=== PATIENT | male | born 1975 ===

== ENCOUNTER → 2019-03-25 | Outpatient (CLI) | payer OTHER ==
[~2019-03-25] MED LIST: ACET325T9 PO; FAMO-63 PO; FEXO180T81 PO; MELA3TAB56 PO; OMEG1CAP50 PO; TEST200V3 IM
--- NOTE | 2019-03-25 11:07 | PAIN ---
DATE OF SERVICE: 03/25/2019 INITIAL CONSULTATION FOR PAIN CLINIC CHIEF COMPLAINT: Bilateral testicle pain. HISTORY OF PRESENT ILLNESS: This is a 43-year-old male who presents with history of pain in the bilateral testicles for about 10 years status post vasectomy, which was performed about 10 years ago and about 6 months after the procedure, the patient reported he had significant pain in the testicles bilaterally, right essentially equal to left. The patient reports it is worse with walking, standing, changing positions, elevating the testicles and sitting is painful, it awakens him from sleep occasionally, but generally not most nights. The patient reports it does not affect his bowel or bladder control or ability to walk, but had some chronic pain. He has been seen by urologist, recommending conservative therapies, although did give him a surgical option for orchiectomy bilaterally. The patient is not interested in this at this time or reversal of vasectomy also not interested in that at this time. The patient reports the pain is constant, sharp, stabbing, intermittent in intensity, but always present. Reports his disability rating from 0-10, 10 being the worst, is a 3 with family home responsibilities, 8 with recreation, 5 with social activity, 8 with occupation and sexual behavior, 1 with self-care, 6 with life support activities. The patient has had no other therapies or treatments at this time. Again, was seen by Urology, recommending surgical options which he is not interested in at this time. PAST MEDICAL HISTORY: Significant for arthritis, hearing loss, gastroesophageal reflux. PREVIOUS SURGERY: Include vasectomy and bilateral knee scopes and stapedectomy in the right ear. CURRENT MEDICATIONS: Include meloxicam, Zantac, clotrimazole, hydrocortisone cream, eye drops. ALLERGIES: The patient has no known drug allergies. FAMILY HISTORY: Significant for cancers and heart disease. SOCIAL HISTORY: The patient does not drink alcohol, does not smoke. Denies any illegal, illicit or recreational drugs. He is single and is currently a in custody. 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 REVIEW OF SYSTEMS: The patient's review of systems is positive for those items mentioned in history of present illness. All systems reviewed and otherwise negative. It is complete, full and well documented on the patient's chart. PHYSICAL EXAMINATION: VITAL SIGNS: The patient's blood pressure is 111/67, pulse 88, respirations 18, temperature 98.1 degrees Fahrenheit, height is 72 inches, weight is 222 pounds. GENERAL: The patient is awake, alert, oriented, appropriate, very pleasant demeanor. HEENT: Shows normocephalic, atraumatic. Extraocular movements are intact and symmetrical. Oral cavity shows mucous membranes moist and pink. Dentition is intact. NECK: Shows anterior throat supple without palpable lymphadenopathy noted. Swallow reflex is symmetrical. CHEST: Shows normal on inspection. Breath sounds clear to auscultation bilaterally. HEART: Shows S1, S2 clear. No murmurs auscultated. ABDOMEN: Soft, nontender, nondistended. No palpable organomegaly is noted. No rebound or guarding demonstrated. BACK: Shows spine grossly in the midline. Normal-appearing thoracic kyphosis and cervical lordotic curvature and lumbar lordotic curvature. The patient's genitals shows normal in appearance with palpation shows significant tenderness with palpation on the superior aspect of the testicles bilaterally as well as in the spermatic cord, it was very tender bilaterally, right and left equal. No obvious masses are palpated. No abnormality of the scrotum of the skin covering or discoloration bilaterally as well. The patient's pain is fairly well localized with compression of the spermatic cord without radiation into the abdomen or groin to a significant extent. EXTREMITIES: The patient's extremities show lower extremity deep tendon reflexes 2+ in the patellar and tendo calcaneus tendons. Motor exam is strong with 5/5 dorsiflexion, extension, quadriceps and hamstring flexion equal bilaterally. SKIN: Shows warm and dry, good turgor. No edema. No sores, rashes or bruising throughout. IMPRESSION: 1. This is a 43-year-old male with about 10-year history of bilateral testicular pain status post vasectomy and chronic epididymitis and orchitis. 2. Arthritis. 3. Hearing loss. PLAN: Options were discussed with the patient including continued conservative managements and interventional techniques. He would like to pursue interventional techniques. We discussed a spermatic cord injection for testicular nerve block. The patient would like to proceed with this. We will wait for preauthorization with his insurance provider. The patient returned for bilateral spermatic cord injection ____ testicular nerve block approval. Also recommend starting the patient on gabapentin 100 mg 3 times daily to titrate up as tolerated and as if the symptoms improve. KERI MOROTN MD DR: KRISTA/neda JOB#: [id number] / [id number]
== END | disposition home or self-care (01) ==
LOC: PNCL 07:47 → EEVIPCON 08:00
PROVIDERS: ATTEND Anesthesiology
DX: N50.812 Left testicular pain (principal); N50.811 Right testicular pain; M19.90 Unspecified osteoarthritis, unspecified site; H91.90 Unspecified hearing loss, unspecified ear; K21.9 Gastro-esophageal reflux disease without esophagitis; G89.29 Other chronic pain; Z98.52 Vasectomy status; Z79.899 Other long term (current) drug therapy
CPT/HCPCS: G0463

== ENCOUNTER → 2019-04-19 | Outpatient (CLI) | payer OTHER ==
[~2019-04-19] MED LIST changes: +BUPIVACAINE MPF 0.25% 10 ML VIAL. ONE; +methylPREDNISolone ACETATE 40 MG/ML VIAL. ONE
--- NOTE | 2019-04-19 10:58 | PAIN ---
DATE OF SERVICE: 04/19/2019 PROGRESS NOTE FOR PAIN CLINIC DIAGNOSES: Bilateral orchitis with orchiodynia, with epididymitis bilaterally. HISTORY OF PRESENT ILLNESS: The patient is a 43-year-old male who returns for followup status post initial evaluation and preauthorization for bilateral spermatic cord block. The patient returns now with approval, would like to proceed, still has significant pain in bilateral testicular regions, rated as 8 on a scale of 10 at its worst over the past week, 6 on average, 4 at its least and is a 6 today. The patient reports it is sharp and constant at times worse with activity, walking, standing, also sitting. No significant change in pain. The patient did report that his gabapentin has been increased to 200 mg three times a day, it is causing some sedation, but seems to be about the same as far as pain goes. No significant improvement. The patient reports it still awakens him from sleep every 4 to 5 hours. No new motor or sensory deficits or other changes. PHYSICAL EXAMINATION: VITAL SIGNS: The patient's blood pressure 144/99, pulse 96, respirations 18, temperature 97.7 degrees Fahrenheit, height is 72 inches, weight is 232 pounds. GENERAL: The patient is awake, alert, oriented, appropriate, very pleasant demeanor. Again, the patient is in custody, guards present. HEENT: Shows normocephalic, atraumatic. Extraocular movements are intact and symmetrical. Oral cavity shows mucous membranes moist and pink. Dentition is intact. NECK: Shows anterior throat supple. CHEST: Shows normal on inspection. Breath sounds clear bilaterally. HEART: Shows S1, S2 clear. ABDOMEN: Soft, nontender, nondistended. BACK: The patient's genitals shows some smaller than normal testicular girth, but with moderate tenderness with palpation on each testicular spermatic cord as well as the testicle itself, but without specific masses or other abnormalities. PLAN: Options were discussed with the patient. The patient's old chart was reviewed as his current medication regimen updated. Current review of systems updated today as well. We will proceed with bilateral spermatic cord block today with risks discussed including, but not limited to bleeding, infection, possibility of intravascular injection sequelae, spread of local anesthetic and numbness, side effects of steroid medication and poor results regarding pain control. The patient understands and wished to proceed. The patient will return to the clinic in approximately 2 weeks for followup. He was counseled on return appointment, activity level and side effects to be aware of. I recommend reassessment in approximately 2 to 3 weeks with potential reinjection and reinforcement of today's spermatic cord block, also recommended increasing the patient's gabapentin as tolerated. DIAGNOSES: Bilateral orchitis with orchiodynia and epididymitis. PROCEDURE: Bilateral spermatic cord block under sterile prep and drape using local anesthetic. MEDICATION INJECTED: A total of 4 mL of 0.25% bupivacaine and 40 mg total of Depo-Medrol after negative aspiration at each injection site. The patient tolerated the procedure well, had no complications. KERI MORTON MD DR: KRISTA/neda JOB#: [id number] / [id number]
== END ==
LOC: PNCL 07:43 → EEVIPCON 08:00
PROVIDERS: ATTEND Anesthesiology
DX: N45.3 Epididymo-orchitis (principal)
CPT/HCPCS: 64425; J1030; J3490

== ENCOUNTER → 2019-12-08 | Outpatient (CLI) | payer OTHER ==
[~2019-12-08] MED LIST changes: -BUPIVACAINE MPF 0.25% 10 ML VIAL. ONE; +CETI10TA74 PO; +GABA300C18 PO; +MELA3TAB4 PO; -MELA3TAB56 PO; +TRAM-48 PO; -methylPREDNISolone ACETATE 40 MG/ML VIAL. ONE
--- NOTE | 2019-12-08 08:26 | PDOC ---
Progress Note - Pain Clinic Date of Service: DOS: DATE: 12/08/19 TIME: 08:20 Diagnosis: Dx: Bilateral epididymitis with Orchodynia History or Present Illness: HPI: 44-year-old male returns follow-up status post bilateral spermatic cord blocks last seen April 19, 2019. Patient reports very minimal decrease in pain only for about 45 minutes after the injection enough for the ride back to [place] and the pain was right back where it was with no improvement long-term. We did recommend starting gabapentin which she reports has actually been helpful in decreasing the pain by about 50% patient reports still pain in the bilateral testicular regions and spermatic cords as he had previously worse with walking standing changing positions better with resting or sitting comfortably still will awaken him from sleep at night occasionally but with the gabapentin has been much less frequently patient reports his pain is a 7 on a scale of 10 is worse over the past week 5 on average to its least is a 5 today patient ported sharp and stabbing on and off in intensity but again better with gabapentin but not with diagnostic nerve block. Patient reports some mild sedation with the gabapentin but otherwise is fairly well-tolerated. Physical Exam: VS: Blood pressure is 136/90 pulse 119 respirations 20 temperature 98.4 F weight is 238 pounds PE: PHYSICAL EXAMINATION: GENERAL: The patient is awake, alert, oriented, appropriate, very pleasant demeanor HEENT: Shows normocephalic, atraumatic. Extraocular movements are intact and symmetrical. Oral cavity: Mucous membranes moist and pink. NECK: Shows anterior throat supple without palpable lymphadenopathy noted. Swallow reflex symmetrical CHEST: Shows normal on inspection. Breath sounds are clear bilaterally. HEART: Shows S1, S2 clear. No murmurs auscultated. ABDOMEN: Soft, nontender, nondistended. No palpable organomegaly is noted. No rebound or guarding demonstrated. BACK: Shows spine grossly in the midline. Normal-appearing cervical lordotic curvature. There is slightly increased thoracic kyphosis, some minor flattening of the lumbar lordotic curvature. Lumbar paraspinous muscles show symmetrical on inspection, on palpation shows some moderate tenderness diffusely throughout the upper, middle and lower distribution of the paraspinous muscles bilaterally without specific trigger points, without radiation of pain. The patient has good rotational motion of the lumbar spine, both laterally as well as extension and flexion without significant difficulty. No tenderness over the spinous processes, sacrum or sacroiliac regions. Genitalia: Shows normal on inspection, with palpation shows some moderate tenderness in the spermatic cord bilaterally right and left since the equal without specific masses palpated without specific radiation. Testicles are bulbous without obvious masses on palpation as well bilaterally. . SKIN: Shows warm and dry, good turgor. No edema. No sores, rashes or bruising throughout. Procedure: Procedure: Options were discussed with the patient. Patient will chart reviews her current medication regimen updated current review of systems updated today as well. We will hold any further injections at this time outpatient specialists as he did not get any significant reduction pain even less than an hour from the initial injection. We discussed possible repeat of injection patient is not interested in that at this time we also talked about pulsed radiofrequency ablation again without good improvement in pain after diagnostic blocks I am unsure that this would be beneficial for the patient as well. We did discuss potential surgical evaluation for decompression of the spermatic cord from scar tissue which is most likely the cause of his chronic orchodynia. Patient would like to maintain his medication and wait on any further interventions at this time. We recommended increasing the gabapentin to 300 mg 3 times daily and or 200 mg 3 times daily and 3 mg at night as tolerated. We will follow-up at this time on as-needed basis. Medication Injected: Med Injected: None Condition at Discharge: Condition at Discharge: Condition at discharge is stable KERI MORTON MD Dec 08, 2019 08:26
== END | disposition home or self-care (01) ==
LOC: PNCL 07:47 → EEVIPCON 08:00
PROVIDERS: ATTEND Anesthesiology
DX: N45.1 Epididymitis (principal); N50.812 Left testicular pain; N50.811 Right testicular pain; K21.9 Gastro-esophageal reflux disease without esophagitis; Z79.899 Other long term (current) drug therapy
CPT/HCPCS: G0463

== ENCOUNTER 2020-07-01 14:38 | Inpatient (IN) | payer OTHER ==
[2020-07-01] VITALS (11 sets, daily range): BP systolic 110–144; BP diastolic 73–89
[~2020-07-01] VITALS: Ht 182.9 cm; Wt 105.0 kg
[2020-07-01] MEDS ORDERED: BISACODYL 10 MG SUPP.RECT. PR PRN (15:00)
[2020-07-01] MEDS ORDERED: ELECTROLYTE (NON-ICU) PROTOCOL. MC PRN (15:00)
[2020-07-01] MEDS ORDERED: CALCIUM CARBONATE 500 MG TAB.CHEW PO PRN (15:00)
[2020-07-01] MEDS ORDERED: ZOLPIDEM 5 MG TABLET. PO PRN (15:00)
[2020-07-01] MEDS ORDERED: HYDROcodone/APAP 5/325MG 1 TAB TABLET PO PRN (15:00)
[2020-07-01] MEDS ORDERED: LACTULOSE 20 GM/30 ML SOLUTION. PO PRN (15:00)
[2020-07-01] MEDS ORDERED: MAGNESIUM HYDROXIDE 2,400 MG/30 ML ORAL.SUSP. PO PRN (15:00)
[2020-07-01] MEDS ORDERED: IV RINGERS,LACTATED 1000ML 1,000 ML IV SCH ×2 (15:00→15:45)
[2020-07-01] MEDS ORDERED: fentaNYL PF VIAL 100 MCG/2 ML VIAL ONE ×2 (15:11→17:09)
[2020-07-01] MEDS ORDERED: PROPOFOL 10 MG/ML (20ML) VIAL. IV ONE ×2 (15:11→16:55)
[2020-07-01] MEDS ORDERED: ROCURONIUM 50 MG/5 ML VIAL. ONE (15:11)
[2020-07-01] MEDS ORDERED: SUCCINYLCHOLINE 200 MG/10 ML VIAL. ONE (15:11)
[2020-07-01] MEDS ORDERED: LIDOCAINE 2% PF 5 ML VIAL. ONE (15:11)
--- NOTE | 2020-07-01 15:17 | PDOC1 ---
History and Physical Date of Admission Date of Admission July 01, 2020 Identification/Chief Complaint Chief Complaint My abdomen hurts Problems: (1) Acute appendicitis Source Source: Chart review, Patient History of Present Illness History of Present Illness Patient is a 44-year-old gentleman with past medical history of GERD, dyslipidemia who was in his usual state of health until the morning prior to his admission when he woke up from his sleep with right lower quadrant abdominal pain. The patient takes Ultram on a regular basis and self medicated. He is currently incarcerated in the shelter. He was given symptomatic relief of his symptoms that also included nausea and vomiting. The patient has history of GERD his pain improved with the Ultram nevertheless it recurred later in the day and this morning he experienced fever and chills reason why he was transported to the local ER for further evaluation and treatment. The patient had a CT of the abdomen which revealed acute appendicitis and had an elevated white blood cell count he was tachycardic and having an acute febrile illness of 101 Fahrenheit. lead consultant was contacted and he requested transfer to our institution for definitive treatment. At the time my evaluation the patient is in acute distress due to the abdominal discomfort right lower quadrant no peritoneal signs patient is uncomfortable diaphoretic and tachycardic certainly in acute distress. Nontoxic looking and seems to be perfusing. As per report per ER physician lactic acid was 2.7 reason why we had requested an ICU bed initially. benefits consultant is in route at this point to take the patient to the OR for definitive definitive treatment. Laboratory data from outside facility has been reviewed and also imaging study results as well. He has received cephalosporin and Flagyl in the outside facility and will continue with Zosyn perioperatively. The patient describes the pain as a sharp sensation 10 out of 10 intensity with no radiation to the groin no radiation to the back no urinary symptoms were reported nausea and vomiting of gastric content was reported by the patient no other associated symptoms. The plan of care explained in detail and all of his concerns were addressed to the best of my abilities Past Medical History Cardiovascular: Hyperlipidemia GI: GERD Past Surgical History Past Surgical History: No pertinent history Family History Family History: No Significant Social History Smoke: No ALCOHOL: none Drugs: None Current Medications Current Medications Current Medications Medications (Trade) Dose Ordered Sig/Kaden Start Time Stop Time Status Last Admin Dose Admin Acetaminophen/ Hydrocodone Bitart (Lortab 5/325) 1 tab PRN Q4HRS PRN 07/01/20 15:00 Al Hydroxide/Mg Hydroxide (Mylanta Plus Xs) 30 ml PRN Q3HRS PRN 07/01/20 15:00 Bisacodyl (Dulcolax Supp) 10 mg PRN DAILY PRN 07/01/20 15:00 Calcium Carbonate/ Glycine (Tums) 500 mg PRN Q3HRS PRN 07/01/20 15:00 Docusate Sodium (Colace) 100 mg BID 07/01/20 21:00 Enoxaparin Sodium (Lovenox 40mg Syringe) 40 mg Q24H 07/01/20 15:00 UNV Hydromorphone HCl (Dilaudid) 0.4 mg PRN Q1HR PRN 07/01/20 15:00 Info (Non-Icu Electrolyte Protocol) 1 ea PRN DAILY PRN 07/01/20 15:00 Lactulose (Lactulose) 20 gm PRN Q12HR PRN 07/01/20 15:00 Magnesium Hydroxide (Milk Of Magnesia) 2,400 mg PRN Q12HR PRN 07/01/20 15:00 UNV Ondansetron HCl (Zofran) 4 mg PRN Q6HRS PRN 07/01/20 15:00 Ringer's Solution 1,000 ml @ 100 mls/hr Q10H 07/01/20 15:00 07/02/20 00:59 Senna/Docusate Sodium (Senna Plus) 1 tab BID 07/01/20 21:00 UNV Zolpidem Tartrate (Ambien) 5 mg PRN QHS PRN 07/01/20 15:00 Allergies Allergies Allergies Coded Allergies Type Severity Reaction Last Updated Verified No Known Drug Allergies 03/25/19 No ROS Review of System CONSTITUTIONAL: Positive for fever chills EYES: No recent changes SKIN: No rash or itching CARDIOVASCULAR: No chest pain, syncope, palpitations, or edema RESPIRATORY: No SOB or cough GASTROINTESTINAL: Nausea vomiting and abdominal pain NEUROLOGICAL: No headaches or weakness ENDOCRINE: No cold or heat intolerance GENITOURINARY: No urgency or frequency of urination MUSCULOSKELETAL: No back pain or joint pain LYMPHATICS: No enlarged lymph nodes PSYCHIATRIC: No anxiety or depression Physical Exam Physical Exam GEN.: No apparent distress. Alert and oriented. HEENT: Head is normocephalic, atraumatic NECK: Supple. LUNGS: Clear to auscultation. HEART: RRR, S1, S2 present. Peripheral pulses intact ABDOMEN: Soft, nontender. Positive bowel sounds. EXTREMITIES: Without any cyanosis. NEUROLOGIC: Normal speech, normal tone PSYCHIATRIC: Normal affect, normal mood. SKIN: No ulcerations Vitals Vitals Vital Signs Date Time Temp Pulse Resp B/P (MAP) Pulse Ox O2 Delivery O2 Flow Rate FiO2 07/01/20 15:05 101.7 130 24 144/88 (106) 92 Room Air 101.7 VTE Prophylaxis Ordered VTE Prophylaxis Devices: No VTE Pharmacological Prophylaxi: Yes Assessment/Plan Assessment/Plan Acute appendicitis with concern for microperforation History of GERD History of dyslipidemia Leukocytosis secondary to the above Elevated lactic acid secondary to acute infectious process Plan Zosyn Pain management Blood cultures Surgical consult OR later in the day Symptomatic relief of symptom DVT prophylaxis with Lovenox Justifications for Admission Other Justification AMELIA JANG MD Jul 01, 2020 15:17
[2020-07-01] MEDS ORDERED: BUPIVACAINE-EPI 0.25% 30 ML VIAL KIT. ONE (15:32)
[2020-07-01] MEDS: HYDROmorphone 2 MG/ML VIAL IV PRN (15:40)
--- NOTE | 2020-07-01 15:44 | PDOC2 ---
CONSULT Date of Consult Date of Consult DATE: 07/01/20 TIME: 15:41 Reason for Consult Reason for Consult: Abdominal pain Referring Physician Referring Physician: Jacques Identification/Chief Complaint Chief Complaint Abdominal pain Source Source: Chart review, Patient History of Present Illness Reason for Visit: 44-year-old male incarcerated correction developed abdominal pain approximately 2 days ago was treated with pain medicine without relief became much worse today he was sent to [place] emergency department for evaluation found to be tachycardic with fever CT scan was done which showed signs consistent with acute appendicitis possible perforation no abscess. Past Medical History Cardiovascular: Hyperlipidemia GI: GERD Past Surgical History Past Surgical History: No pertinent history Family History Family History: No Significant Social History No ALCOHOL: none Drugs: None Current Medications Current Medications Current Medications Ringer's Solution 1,000 ml @ 100 mls/hr Q10H IV ; Start 07/01/20 at 15:00; Stop 07/02/20 at 00:59 Ondansetron HCl (Zofran) 4 mg PRN Q6HRS PRN IVP NAUSEA/VOMITING; Start 07/01/20 at 15:00 Al Hydroxide/Mg Hydroxide (Mylanta Plus Xs) 30 ml PRN Q3HRS PRN PO HEARTBURN / GAS; Start 07/01/20 at 15:00 Calcium Carbonate/ Glycine (Tums) 500 mg PRN Q3HRS PRN PO UPSET STOMACH; Start 07/01/20 at 15:00 Zolpidem Tartrate (Ambien) 5 mg PRN QHS PRN PO INSOMNIA, MAY REPEAT IN 1HR; Start 07/01/20 at 15:00 Info (Non-Icu Electrolyte Protocol) 1 ea PRN DAILY PRN MC SEE COMMENTS; Start 07/01/20 at 15:00 Hydromorphone HCl (Dilaudid) 0.4 mg PRN Q1HR PRN IV PAIN; Start 07/01/20 at 15:00 Acetaminophen/ Hydrocodone Bitart (Lortab 5/325) 1 tab PRN Q4HRS PRN PO MILD PAIN 1-3; Start 07/01/20 at 15:00 Senna/Docusate Sodium (Senna Plus) 1 tab BID PO ; Start 07/01/20 at 21:00 Docusate Sodium (Colace) 100 mg BID PO ; Start 07/01/20 at 21:00 Magnesium Hydroxide (Milk Of Magnesia) 2,400 mg PRN Q12HR PRN PO CONSTIPATION- 1ST CHOICE; Start 07/01/20 at 15:00 Lactulose (Lactulose) 20 gm PRN Q12HR PRN PO CONSTIPATION; Start 07/01/20 at 15:00 Bisacodyl (Dulcolax Supp) 10 mg PRN DAILY PRN DE CONSTIPATION; Start 07/01/20 at 15:00 Enoxaparin Sodium (Lovenox 40mg Syringe) 40 mg Q24H SQ ; Start 07/01/20 at 21:00 Piperacillin Sod/ Tazobactam Sod 4.5 gm/Sodium Chloride 100 ml @ 200 mls/hr Q6HRS IV ; Start 07/01/20 at 18:00; Status UNV Piperacillin Sod/ Tazobactam Sod 3.375 gm/Sodium Chloride 50 ml @ 100 mls/hr Q6HRS IV ; Start 07/01/20 at 18:00 Propofol (Diprivan) 200 mg STK-MED ONCE IV ; Start 07/01/20 at 15:11; Stop 07/01/20 at 15:11; Status DC Lidocaine HCl (Lidocaine Pf 2% Vial) 5 ml STK-MED ONCE .ROUTE ; Start 07/01/20 at 15:11; Stop 07/01/20 at 15:11; Status DC Succinylcholine Chloride (Anectine) 200 mg STK-MED ONCE .ROUTE ; Start 07/01/20 at 15:11; Stop 07/01/20 at 15:12; Status DC Rocuronium Smilax (Zemuron) 50 mg STK-MED ONCE .ROUTE ; Start 07/01/20 at 15:11; Stop 07/01/20 at 15:12; Status DC Fentanyl Citrate (Fentanyl 2ml Vial) 100 mcg STK-MED ONCE .ROUTE ; Start 07/01/20 at 15:11; Stop 07/01/20 at 15:12; Status DC Bupivacaine HCl/ Epinephrine Bitart (Sensorcain-Epi 0.25% Kit) 30 ml STK-MED ONCE .ROUTE ; Start 07/01/20 at 15:32; Stop 07/01/20 at 15:33; Status DC Fentanyl Citrate (Fentanyl 2ml Vial) 25 mcg PRN Q5MIN PRN IVP MILD PAIN 1-3; Start 07/01/20 at 15:45; Stop 07/02/20 at 15:44 Fentanyl Citrate (Fentanyl 2ml Vial) 50 mcg PRN Q5MIN PRN IVP MODERATE PAIN 4- 6; Start 07/01/20 at 15:45; Stop 07/02/20 at 15:44 Morphine Sulfate (Morphine Sulfate) 1 mg PRN Q10MIN PRN IVP SEVERE PAIN 7-10; Start 07/01/20 at 15:45; Stop 07/02/20 at 15:44 Ringer's Solution 1,000 ml @ 30 mls/hr Q24H IV ; Start 07/01/20 at 15:45; Stop 07/02/20 at 03:44 Hydromorphone HCl (Dilaudid) 0.5 mg PRN Q10MIN PRN IVP SEVERE PAIN 7-10, 2nd CHOICE; Start 07/01/20 at 15:45; Stop 07/02/20 at 15:44 Prochlorperazine Edisylate (Compazine) 5 mg PACU PRN PRN IVP NAUSEA, MRX1; Start 07/01/20 at 15:45; Stop 07/02/20 at 15:44 Active Scripts Active Reported Ultram (Tramadol Hcl) 50 Mg Tablet 100 Mg PO TID PRN Gabapentin (Gabapentin) 300 Mg Capsule 300 Mg PO TID Zyrtec (Cetirizine Hcl) 10 Mg Tablet 1 Tab PO DAILY Testosterone Cypionate 200 Mg/1 Ml Vial 1 Ml IM Q2WKS Melatonin 3 Mg Tablet 1 Tab PO QHS Fish Oil 1,000 Mg Softgel ([place]-3 Fatty Acids/Fish Oil) 1 Each Capsule 1 Cap PO DAILY 30 Days Pepcid (Famotidine) 20 Mg Tablet 20 Mg PO BID Tylenol (Acetaminophen) 325 Mg Tablet 650 Mg PO TID Allergies Allergies: Coded Allergies: No Known Drug Allergies (Unverified , 03/25/19) ROS Gastrointestinal: Yes Nausea, Yes Abdominal Pain Physical Exam General: Alert, Oriented X3, Cooperative, moderate distress HEENT: Atraumatic, EOMI Lungs: Clear to auscultation, Normal air movement Heart: Other (Tachycardic) Abdomen: Soft, Other (Tender to palpation right lower quadrant) Extremities: No edema Skin: No significant lesion Neuro: Normal speech Psych/Mental Status: Mental status NL Vitals VITALS Vital Signs Date Time Temp Pulse Resp B/P (MAP) Pulse Ox O2 Delivery O2 Flow Rate FiO2 07/01/20 15:05 101.7 130 24 144/88 (106) 92 Room Air 101.7 07/01/20 15:00 2.0 Labs Labs White count of 15,000 lactic acid of 2.[address] scan of his abdomen and pelvis shows signs consistent with acute appendicitis and rupture without free fluid or abscess Assessment/Plan Assessment/Plan Acute appendicitis plan laparoscopic appendectomy possible open appendectomy JESSICA MTZ MD Jul 01, 2020 15:44
[2020-07-01] MEDS ORDERED: MORPHINE SULFATE 2 MG/ML VIAL. IVP PRN (15:45)
[2020-07-01] MEDS ORDERED: HYDROmorphone 2 MG/ML VIAL IVP PRN (15:45)
[2020-07-01] MEDS ORDERED: fentaNYL PF VIAL 100 MCG/2 ML VIAL IVP PRN (15:45)
[2020-07-01] MEDS ORDERED: PROCHLORPERAZINE 10 MG/2 ML VIAL. IVP PRN (15:45)
[2020-07-01] MEDS: PIPERACILLIN/TAZOBACTAM 3.375 GM in IV NORMAL SALINE 50ML 50 ML IV SCH (16:10)
[2020-07-01] MEDS ORDERED: ONDANSETRON PF 4 MG/2 ML VIAL. ONE (16:32)
[2020-07-01] MEDS ORDERED: DEXAMETHASONE SOD PHOS 4 MG/ML VIAL ONE (16:32)
[2020-07-01] MEDS ORDERED: NEOSTIGMINE METHYLSULFATE 5 MG/5 ML SYRINGE. ONE (16:32)
[2020-07-01] MEDS ORDERED: SEVOFLURANE 31 TO 60 MINUTES. IH ONE (16:32)
[2020-07-01] MEDS ORDERED: GLYCOPYRROLATE 1 MG/5 ML VIAL. ONE (16:33)
--- NOTE | 2020-07-01 17:08 | PDOC4 ---
Operative Note Operative Note Date: July 012020 at 1705 Preoperative diagnosis: Acute appendicitis with perforation Postoperative diagnosis: Same Procedure: Laparoscopic appendectomy Surgeon: Raffaele Specimens: Appendix and cultures Dictation: Patient is a 44-year-old male who is admitted to the hospital with right lower quadrant abdominal pain leukocytosis and fever. CT scan showed signs consistent with acute appendicitis with perforation. Procedure of laparoscopic appendectomy was explained to the patient detail risk benefits were also discussed including bleeding infection injury to intra-abdominal contents possible necessitating further or open operations alternatives to this procedure also discussed with the patient who seemed to understand and gave both verbal and written consent to have the procedure performed. Patient was taken to the operating room placed in the supine position general anesthesia was initiated once patient was sleeping intubated his abdomen was prepped and draped usual sterile fashion using ChloraPrep. An area just below the umbilicus was injected with quarter percent Marcaine with epinephrine incision was made 11 blade scalpel and a varies needle was placed within the abdomen creating pneumoper itoneum once this was complete 12 mm port was placed and a 5 mm camera was placed within the abdomen who was noted that the small bowel and colon were quite edematous some free fluid in the abdomen and pelvis. A 5 mm port was placed in the right midabdomen and a 5 mm port was placed in the right lower abdomen. The appendix was retrocecal and stuck to the lateral abdominal wall th ere was a free perforation in the midportion of the appendix the appendix was freed up from its attachments to the lateral abdominal wall the base of the appendix was visualized a [place] dissector was used to propagate a window in the mesoappendix at the base a Endo MENG stapler was then used to staple and transect the base of the appendix a second load was used to staple and transect the mesoappendix. The appendix was then placed in Endo Catch bag removed and the umbilicus fluid from the pelvis was suctioned and sent for cultures the abdomen there was irrigated and suctioned dry the right lower quadrant and pelvis were irrigated and suctioned dry hemostasis deemed be appropriate and the pneumoperitoneum was reduced all ports were removed the fascial defect at the umbilicus was closed with a [id number] Vicryl suture and the skin was reapproximated all port sites for subcuticular Monocryl Mastisol Steri-Strips and island dressings were applied. Patient was awakened and extubated in the operating room taken to recovery in stable condition all sponge instrument needle counts listed as correct estimated blood loss 10 mL JESSICA MTZ MD Jul 01, 2020 17:08
--- NOTE | 2020-07-01 17:22 | NUR ---
Received report from DWIGHT Jennings in ICU for transfer of patient. Patient currently in surgery/PACU.
[2020-07-01] MEDS: fentaNYL PF VIAL 100 MCG/2 ML VIAL IVP PRN ×2 (17:49→17:58)
[2020-07-01] MEDS: KETOROLAC 15 MG/ML VIAL. IVP SCH (18:00)
[2020-07-01] MEDS ORDERED: PIPERACILLIN/TAZOBACTAM 4.5 GM in IV NORMAL SALINE 100ML 100 ML IV SCH (18:00)
--- NOTE | 2020-07-01 18:17 | NUR ---
Received patient from PACU. Patient is in room with 2 guards, has ice chips, and complains of 0/0 pain.
[2020-07-01] MEDS: oxyCODONE/APAP 5/325 1 TAB TABLET PO PRN ×2 (19:50→19:51)
[2020-07-01 21:17] LABS: CALCIUM 7.6 mg/dL (8.5-10.1); CREATININE 1.3 mg/dL (0.7-1.3); GFR 60.5; POTASSIUM 4.2 mmol/L (3.5-5.1)
[2020-07-01] MEDS: DOCUSATE SODIUM 100 MG CAPSULE. PO SCH (21:47)
[2020-07-01] MEDS: SENNOSIDES/DOCUSATE 8.6/50MG TABLET. PO SCH (21:47)
[2020-07-01] MEDS: ENOXAPARIN 40 MG/0.4 ML SYRINGE. SQ SCH (21:48)
[2020-07-02] MEDS: PIPERACILLIN/TAZOBACTAM 3.375 GM in IV NORMAL SALINE 50ML 50 ML IV SCH ×4 (00:04→16:01)
[2020-07-02] MEDS: KETOROLAC 15 MG/ML VIAL. IVP SCH ×4 (00:05→15:58)
[2020-07-02] MEDS: ONDANSETRON PF 4 MG/2 ML VIAL. IVP PRN ×3 (00:18→21:28)
[2020-07-02 03:00] VITALS: BP 108/68
[2020-07-02 07:00] VITALS: BP 113/70
[2020-07-02 07:46] LABS: BASO % 0 % (0-3); EOS % 0 % (0-3); HEMATOCRIT 39.2 % (39.0-53.0); HEMOGLOBIN 13.3 g/dL (13.0-17.5); LYMPH # 0.7 x10^3/uL (1.0-4.8); LYMPH % 5 % (24-48); MEAN CORPUSCULAR HEMOGLOBIN 29 pg (25-35); MEAN CORPUSCULAR HGB CONC 34 g/dL (31-37); MEAN CORPUSCULAR VOLUME 85 fL (79-100); MONO # 0.9 x10^3/uL (0.0-1.1); MONO % 6 % (0-9); NEUT # 12.7 x10^3/uL (1.8-7.7); NEUT % 89 % (31-73); PLATELET COUNT 106 x10^3/uL (140-400); RED BLOOD COUNT 4.59 x10^6/uL (4.30-5.70); WHITE BLOOD COUNT 14.3 x10^3/uL (4.0-11.0)
[2020-07-02] MEDS: SENNOSIDES/DOCUSATE 8.6/50MG TABLET. PO SCH ×2 (08:35→20:14)
[2020-07-02] MEDS: oxyCODONE/APAP 5/325 1 TAB TABLET PO PRN ×2 (08:35→20:15)
[2020-07-02] MEDS: DOCUSATE SODIUM 100 MG CAPSULE. PO SCH ×2 (08:35→20:15)
[2020-07-02 09:30] LABS: % BANDS 15 % (0-9); % LYMPHS 4 % (24-48); % MONOS 6 % (0-10); % MYELOS 1 % (0-0); % SEGS 74 % (35-66)
[2020-07-02 09:31] LABS: PLT ESTIMATE DECREASED (ADEQUATE)
--- NOTE | 2020-07-02 09:50 | PDOC ---
SURGICAL PROGRESS NOTE DATE: 07/02/20 TIME: 09:48 Subjective Patient still having a lot of abdominal pain and acid reflux normally takes Prilosec daily Vital Signs Vital Signs Date Time Temp Pulse Resp B/P (MAP) Pulse Ox O2 Delivery O2 Flow Rate FiO2 07/02/20 07:12 Room Air 07/02/20 07:00 100.0 114 16 113/70 (84) 92 100.0 07/01/20 20:50 2.0 I&O Intake and Output 07/02/20 07:00 Intake Total 3250 ml Output Total 611 ml Balance 2639 ml Intake Oral 100 ml IV Total 3150 ml Output Urine Total 601 ml Estimated Blood Loss 10 ml PATIENT HAS A KERR: No General: Alert, Oriented X3, Cooperative, moderate distress Abdomen: Soft, Other (Mild tenderness at the incision sites tender to right lower quadrant) Labs Laboratory Tests Test 07/01/20 20:20 07/02/20 07:15 Sodium Level 137 mmol/L (136-145) Potassium Level 4.2 mmol/L (3.5-5.1) Chloride Level 98 mmol/L (98-107) Carbon Dioxide Level 31 mmol/L (21-32) Anion Gap 8 (6-14) Blood Urea Nitrogen 11 mg/dL (8-26) Creatinine 1.3 mg/dL (0.7-1.3) Estimated GFR (Cockcroft-Gault) 60.5 Glucose Level 120 mg/dL (70-99) Lactic Acid Level 3.8 mmol/L (0.4-2.0) 1.4 mmol/L (0.4-2.0) Calcium Level 7.6 mg/dL (8.5-10.1) White Blood Count 14.3 x10^3/uL (4.0-11.0) Red Blood Count 4.59 x10^6/uL (4.30-5.70) Hemoglobin 13.3 g/dL (13.0-17.5) Hematocrit 39.2 % (39.0-53.0) Mean Corpuscular Volume 85 fL (79-100) Mean Corpuscular Hemoglobin 29 pg (25-35) Mean Corpuscular Hemoglobin Concent 34 g/dL (31-37) Red Cell Distribution Width 13.0 % (11.5-14.5) Platelet Count 106 x10^3/uL (140-400) Neutrophils (%) (Auto) 89 % (31-73) Lymphocytes (%) (Auto) 5 % (24-48) Monocytes (%) (Auto) 6 % (0-9) Eosinophils (%) (Auto) 0 % (0-3) Basophils (%) (Auto) 0 % (0-3) Neutrophils # (Auto) 12.7 x10^3/uL (1.8-7.7) Lymphocytes # (Auto) 0.7 x10^3/uL (1.0-4.8) Monocytes # (Auto) 0.9 x10^3/uL (0.0-1.1) Eosinophils # (Auto) 0.0 x10^3/uL (0.0-0.7) Basophils # (Auto) 0.0 x10^3/uL (0.0-0.2) Segmented Neutrophils % 74 % (35-66) Band Neutrophils % 15 % (0-9) Lymphocytes % 4 % (24-48) Monocytes % 6 % (0-10) Myelocytes % 1 % (0-0) Platelet Estimate Decreased (ADEQUATE) Laboratory Tests Test 07/01/20 20:20 07/02/20 07:15 Sodium Level 137 mmol/L (136-145) Potassium Level 4.2 mmol/L (3.5-5.1) Chloride Level 98 mmol/L (98-107) Carbon Dioxide Level 31 mmol/L (21-32) Anion Gap 8 (6-14) Blood Urea Nitrogen 11 mg/dL (8-26) Creatinine 1.3 mg/dL (0.7-1.3) Estimated GFR (Cockcroft-Gault) 60.5 Glucose Level 120 mg/dL (70-99) Lactic Acid Level 3.8 mmol/L (0.4-2.0) 1.4 mmol/L (0.4-2.0) Calcium Level 7.6 mg/dL (8.5-10.1) White Blood Count 14.3 x10^3/uL (4.0-11.0) Red Blood Count 4.59 x10^6/uL (4.30-5.70) Hemoglobin 13.3 g/dL (13.0-17.5) Hematocrit 39.2 % (39.0-53.0) Mean Corpuscular Volume 85 fL (79-100) Mean Corpuscular Hemoglobin 29 pg (25-35) Mean Corpuscular Hemoglobin Concent 34 g/dL (31-37) Red Cell Distribution Width 13.0 % (11.5-14.5) Platelet Count 106 x10^3/uL (140-400) Neutrophils (%) (Auto) 89 % (31-73) Lymphocytes (%) (Auto) 5 % (24-48) Monocytes (%) (Auto) 6 % (0-9) Eosinophils (%) (Auto) 0 % (0-3) Basophils (%) (Auto) 0 % (0-3) Neutrophils # (Auto) 12.7 x10^3/uL (1.8-7.7) Lymphocytes # (Auto) 0.7 x10^3/uL (1.0-4.8) Monocytes # (Auto) 0.9 x10^3/uL (0.0-1.1) Eosinophils # (Auto) 0.0 x10^3/uL (0.0-0.7) Basophils # (Auto) 0.0 x10^3/uL (0.0-0.2) Segmented Neutrophils % 74 % (35-66) Band Neutrophils % 15 % (0-9) Lymphocytes % 4 % (24-48) Monocytes % 6 % (0-10) Myelocytes % 1 % (0-0) Platelet Estimate Decreased (ADEQUATE) Assessment/Plan Status post laparoscopic appendectomy for perforated appendicitis and general peritonitis White count 14,000 afebrile Continue IV antibiotics, start proton pump inhibitor Supportive care Justicifation of Admission Dx: Justifications for Admission: Justification of Admission Dx: Yes Sepsis: Hemodynamic Instability JESSICA MTZ MD Jul 02, 2020 09:50
[2020-07-02] MEDS: HYDROmorphone 2 MG/ML VIAL IV PRN ×3 (09:57→21:31)
[2020-07-02 11:00] VITALS: BP 120/68
[2020-07-02] MEDS: PANTOPRAZOLE 40 MG TABLET.DR. PO SCH (11:07)
--- NOTE | 2020-07-02 11:29 | PDOC ---
PROGRESS NOTES Date of Service: DATE: 07/02/20 TIME: 11:29 Chief Complaint Chief Complaint Assessment/Plan Assessment/Plan Acute appendicitis with concern for microperforation History of GERD History of dyslipidemia Leukocytosis secondary to the above Elevated lactic acid secondary to acute infectious process SEPSIS Plan Zosyn Pain management Blood cultures Surgical consult POD # 1 Symptomatic relief of symptom DVT prophylaxis with Lovenox ID CONSULT Justifications for Admission Justifications for Admission Other Justification CT scan showed signs consistent with acute appendicitis with perforation History of Present Illness History of Present Illness Identification/Chief Complaint Chief Complaint My abdomen hurts Problems: (1) Acute appendicitis Source Source: Chart review, Patient History of Present Illness History of Present Illness Patient is a 44-year-old gentleman with past medical history of GERD, dyslipidemia who was in his usual state of health until the morning prior to his admission when he woke up from his sleep with right lower quadrant abdominal pain. The patient takes Ultram on a regular basis and self medicated. He is currently incarcerated in the senior care. He was given symptomatic relief of his symptoms that also included nausea and vomiting. The patient has history of GERD his pain improved with the Ultram nevertheless it recurred later in the day and this morning he experienced fever and chills reason why he was transported to the local ER for further evaluation and treatment. The patient had a CT of the abdomen which revealed acute appendicitis and had an elevated white blood cell count he was tachycardic and having an acute febrile illness of 101 Fahrenheit. oncology consultant was contacted and he requested transfer to our institution for definitive treatment. At the time my evaluation the patient is in acute distress due to the abdominal discomfort right lower quadrant no peritoneal signs patient is uncomfortable diaphoretic and tachycardic certainly in acute distress. Nontoxic looking and seems to be perfusing. As per report per ER physician lactic acid was 2.7 reason why we had requested an ICU bed initially. behavioral health consultant is in route at this point to take the patient to the OR for definitive definitive treatment. Laboratory data from outside facility has been reviewed and also imaging study results as well. He has received cephalosporin and Flagyl in the outside facility and will continue with Zosyn perioperatively. The patient describes the pain as a sharp sensation 10 out of 10 intensity with no radiation to the groin no radiation to the back no urinary symptoms were reported nausea and vomiting of gastric content was reported by the patient no other associated symptoms. The plan of care explained in detail and all of his concerns were addressed to the best of my abilities Past Medical History Cardiovascular: Hyperlipidemia GI: GERD Past Surgical History Past Surgical History: No pertinent history Family History Family History: No Significant Social History Smoke: No ALCOHOL: none Drugs: None 07-02 pain fair, ID CONSULTED, BLOOD CULT PENDING, CONT IV ZOSYN D/W RN Vitals Vitals Vital Signs Date Time Temp Pulse Resp B/P (MAP) Pulse Ox O2 Delivery O2 Flow Rate FiO2 07/02/20 07:12 Room Air 07/02/20 07:00 100.0 114 16 113/70 (84) 92 100.0 07/01/20 20:50 2.0 Physical Exam Physical Exam Physical Exam GEN.: No apparent distress. Alert and oriented. HEENT: Head is normocephalic, atraumatic NECK: Supple. LUNGS: Clear to auscultation. HEART: RRR, S1, S2 present. Peripheral pulses intact ABDOMEN: Soft, nontender. Positive bowel sounds. EXTREMITIES: Without any cyanosis. NEUROLOGIC: Normal speech, normal tone PSYCHIATRIC: Normal affect, normal mood. SKIN: No ulcerations General: Alert, Oriented X3, Cooperative, No acute distress Heart: Regular rate, Normal S1, Normal S2, Other (Tachycardic) Lungs: Clear Abdomen: Normal bowel sounds, Soft, Other (Mild tenderness at the incision sites tender to right lower quadrant) Extremities: No clubbing, No cyanosis, No edema Skin: No significant lesion Labs LABS Operative Note Operative Note Date: July 012020 at 1705 Preoperative diagnosis: Acute appendicitis with perforation Postoperative diagnosis: Same Procedure: Laparoscopic appendectomy Surgeon: Raffaele Specimens: Appendix and cultures Dictation: Patient is a 44-year-old male who is admitted to the hospital with right lower quadrant abdominal pain leukocytosis and fever. CT scan showed signs consistent with acute appendicitis with perforation. Laboratory Tests Test 07/01/20 20:20 07/02/20 07:15 Sodium Level 137 mmol/L (136-145) Potassium Level 4.2 mmol/L (3.5-5.1) Chloride Level 98 mmol/L (98-107) Carbon Dioxide Level 31 mmol/L (21-32) Anion Gap 8 (6-14) Blood Urea Nitrogen 11 mg/dL (8-26) Creatinine 1.3 mg/dL (0.7-1.3) Estimated GFR (Cockcroft-Gault) 60.5 Glucose Level 120 mg/dL (70-99) Lactic Acid Level 3.8 mmol/L (0.4-2.0) 1.4 mmol/L (0.4-2.0) Calcium Level 7.6 mg/dL (8.5-10.1) White Blood Count 14.3 x10^3/uL (4.0-11.0) Red Blood Count 4.59 x10^6/uL (4.30-5.70) Hemoglobin 13.3 g/dL (13.0-17.5) Hematocrit 39.2 % (39.0-53.0) Mean Corpuscular Volume 85 fL (79-100) Mean Corpuscular Hemoglobin 29 pg (25-35) Mean Corpuscular Hemoglobin Concent 34 g/dL (31-37) Red Cell Distribution Width 13.0 % (11.5-14.5) Platelet Count 106 x10^3/uL (140-400) Neutrophils (%) (Auto) 89 % (31-73) Lymphocytes (%) (Auto) 5 % (24-48) Monocytes (%) (Auto) 6 % (0-9) Eosinophils (%) (Auto) 0 % (0-3) Basophils (%) (Auto) 0 % (0-3) Neutrophils # (Auto) 12.7 x10^3/uL (1.8-7.7) Lymphocytes # (Auto) 0.7 x10^3/uL (1.0-4.8) Monocytes # (Auto) 0.9 x10^3/uL (0.0-1.1) Eosinophils # (Auto) 0.0 x10^3/uL (0.0-0.7) Basophils # (Auto) 0.0 x10^3/uL (0.0-0.2) Segmented Neutrophils % 74 % (35-66) Band Neutrophils % 15 % (0-9) Lymphocytes % 4 % (24-48) Monocytes % 6 % (0-10) Myelocytes % 1 % (0-0) Platelet Estimate Decreased (ADEQUATE) Comment Review of Relevant I have reviewed the following items tawana (where applicable) has been applied. Labs Laboratory Tests Test 3/27/21 20:20 07/02/20 07:15 Sodium Level 137 mmol/L (136-145) Potassium Level 4.2 mmol/L (3.5-5.1) Chloride Level 98 mmol/L (98-107) Carbon Dioxide Level 31 mmol/L (21-32) Anion Gap 8 (6-14) Blood Urea Nitrogen 11 mg/dL (8-26) Creatinine 1.3 mg/dL (0.7-1.3) Estimated GFR (Cockcroft-Gault) 60.5 Glucose Level 120 mg/dL (70-99) Lactic Acid Level 3.8 mmol/L (0.4-2.0) 1.4 mmol/L (0.4-2.0) Calcium Level 7.6 mg/dL (8.5-10.1) White Blood Count 14.3 x10^3/uL (4.0-11.0) Red Blood Count 4.59 x10^6/uL (4.30-5.70) Hemoglobin 13.3 g/dL (13.0-17.5) Hematocrit 39.2 % (39.0-53.0) Mean Corpuscular Volume 85 fL (79-100) Mean Corpuscular Hemoglobin 29 pg (25-35) Mean Corpuscular Hemoglobin Concent 34 g/dL (31-37) Red Cell Distribution Width 13.0 % (11.5-14.5) Platelet Count 106 x10^3/uL (140-400) Neutrophils (%) (Auto) 89 % (31-73) Lymphocytes (%) (Auto) 5 % (24-48) Monocytes (%) (Auto) 6 % (0-9) Eosinophils (%) (Auto) 0 % (0-3) Basophils (%) (Auto) 0 % (0-3) Neutrophils # (Auto) 12.7 x10^3/uL (1.8-7.7) Lymphocytes # (Auto) 0.7 x10^3/uL (1.0-4.8) Monocytes # (Auto) 0.9 x10^3/uL (0.0-1.1) Eosinophils # (Auto) 0.0 x10^3/uL (0.0-0.7) Basophils # (Auto) 0.0 x10^3/uL (0.0-0.2) Segmented Neutrophils % 74 % (35-66) Band Neutrophils % 15 % (0-9) Lymphocytes % 4 % (24-48) Monocytes % 6 % (0-10) Myelocytes % 1 % (0-0) Platelet Estimate Decreased (ADEQUATE) Laboratory Tests Test 07/01/20 20:20 07/02/20 07:15 Sodium Level 137 mmol/L (136-145) Potassium Level 4.2 mmol/L (3.5-5.1) Chloride Level 98 mmol/L (98-107) Carbon Dioxide Level 31 mmol/L (21-32) Anion Gap 8 (6-14) Blood Urea Nitrogen 11 mg/dL (8-26) Creatinine 1.3 mg/dL (0.7-1.3) Estimated GFR (Cockcroft-Gault) 60.5 Glucose Level 120 mg/dL (70-99) Lactic Acid Level 3.8 mmol/L (0.4-2.0) 1.4 mmol/L (0.4-2.0) Calcium Level 7.6 mg/dL (8.5-10.1) White Blood Count 14.3 x10^3/uL (4.0-11.0) Red Blood Count 4.59 x10^6/uL (4.30-5.70) Hemoglobin 13.3 g/dL (13.0-17.5) Hematocrit 39.2 % (39.0-53.0) Mean Corpuscular Volume 85 fL (79-100) Mean Corpuscular Hemoglobin 29 pg (25-35) Mean Corpuscular Hemoglobin Concent 34 g/dL (31-37) Red Cell Distribution Width 13.0 % (11.5-14.5) Platelet Count 106 x10^3/uL (140-400) Neutrophils (%) (Auto) 89 % (31-73) Lymphocytes (%) (Auto) 5 % (24-48) Monocytes (%) (Auto) 6 % (0-9) Eosinophils (%) (Auto) 0 % (0-3) Basophils (%) (Auto) 0 % (0-3) Neutrophils # (Auto) 12.7 x10^3/uL (1.8-7.7) Lymphocytes # (Auto) 0.7 x10^3/uL (1.0-4.8) Monocytes # (Auto) 0.9 x10^3/uL (0.0-1.1) Eosinophils # (Auto) 0.0 x10^3/uL (0.0-0.7) Basophils # (Auto) 0.0 x10^3/uL (0.0-0.2) Segmented Neutrophils % 74 % (35-66) Band Neutrophils % 15 % (0-9) Lymphocytes % 4 % (24-48) Monocytes % 6 % (0-10) Myelocytes % 1 % (0-0) Platelet Estimate Decreased (ADEQUATE) Medications Current Medications Ringer's Solution 1,000 ml @ 100 mls/hr Q10H IV Last administered on 07/01/20at 15:00; Start 07/01/20 at 15:00; Stop 07/02/20 at 00:59; Status DC Ondansetron HCl (Zofran) 4 mg PRN Q6HRS PRN IVP NAUSEA/VOMITING Last adm inistered on 07/02/20at 00:18; Start 07/01/20 at 15:00 Al Hydroxide/Mg Hydroxide (Mylanta Plus Xs) 30 ml PRN Q3HRS PRN PO HEARTBURN / GAS; Start 07/01/20 at 15:00 Calcium Carbonate/ Glycine (Tums) 500 mg PRN Q3HRS PRN PO UPSET STOMACH Last administered on 07/02/20at 04:59; Start 07/01/20 at 15:00 Zolpidem Tartrate (Ambien) 5 mg PRN QHS PRN PO INSOMNIA, MAY REPEAT IN 1HR; Start 07/01/20 at 15:00 Info (Non-Icu Electrolyte Protocol) 1 ea PRN DAILY PRN MC SEE COMMENTS; Start 07/01/20 at 15:00 Hydromorphone HCl (Dilaudid) 0.4 mg PRN Q1HR PRN IV PAIN Last administered on 07/02/20at 09:57; Start 07/01/20 at 15:00 Acetaminophen/ Hydrocodone Bitart (Lortab 5/325) 1 tab PRN Q4HRS PRN PO MILD PAIN 1-3; Start 07/01/20 at 15:00 Senna/Docusate Sodium (Senna Plus) 1 tab BID PO Last administered on 07/02/20at 08:35; Start 07/01/20 at 21:00 Docusate Sodium (Colace) 100 mg BID PO Last administered on 07/02/20at 08:35; Start 07/01/20 at 21:00 Magnesium Hydroxide (Milk Of Magnesia) 2,400 mg PRN Q12HR PRN PO CONSTIPATION- 1ST CHOICE; Start 07/01/20 at 15:00 Lactulose (Lactulose) 20 gm PRN Q12HR PRN PO CONSTIPATION; Start 07/01/20 at 15:00 Bisacodyl (Dulcolax Supp) 10 mg PRN DAILY PRN MD CONSTIPATION; Start 07/01/20 at 15:00 Enoxaparin Sodium (Lovenox 40mg Syringe) 40 mg Q24H SQ Last administered on 07/01/20at 21:48; Start 07/01/20 at 21:00 Piperacillin Sod/ Tazobactam Sod 4.5 gm/Sodium Chloride 100 ml @ 200 mls/hr Q6HRS IV ; Start 07/01/20 at 18:00; Status UNV Piperacillin Sod/ Tazobactam Sod 3.375 gm/Sodium Chloride 50 ml @ 100 mls/hr Q6HRS IV Last administered on 07/02/20at 11:07; Start 07/01/20 at 18:00 Propofol (Diprivan) 200 mg STK-MED ONCE IV ; Start 07/01/20 at 15:11; Stop 07/01/20 at 15:11; Status DC Lidocaine HCl (Lidocaine Pf 2% Vial) 5 ml STK-MED ONCE .ROUTE ; Start 07/01/20 at 15:11; Stop 07/01/20 at 15:11; Status DC Succinylcholine Chloride (Anectine) 200 mg STK-MED ONCE .ROUTE ; Start 07/01/20 at 15:11; Stop 07/01/20 at 15:12; Status DC Rocuronium [place] (Zemuron) 50 mg STK-MED ONCE .ROUTE ; Start 07/01/20 at 15:11; Stop 07/01/20 at 15:12; Status DC Fentanyl Citrate (Fentanyl 2ml Vial) 100 mcg STK-MED ONCE .ROUTE ; Start 07/01/20 at 15:11; Stop 07/01/20 at 15:12; Status DC Bupivacaine HCl/ Epinephrine Bitart (Sensorcain-Epi 0.25% Kit) 30 ml STK-MED ONCE .ROUTE Last administered on 07/01/20at 16:21; Start 07/01/20 at 15:32; Stop 07/01/20 at 15:33; Status DC Fentanyl Citrate (Fentanyl 2ml Vial) 25 mcg PRN Q5MIN PRN IVP MILD PAIN 1-3; Start 07/01/20 at 15:45; Stop 07/01/20 at 18:22; Status DC Fentanyl Citrate (Fentanyl 2ml Vial) 50 mcg PRN Q5MIN PRN IVP MODERATE PAIN 4-6 Last administered on 07/01/20at 17:58; Start 07/01/20 at 15:45; Stop 07/01/20 at 18:22; Status DC Morphine Sulfate (Morphine Sulfate) 1 mg PRN Q10MIN PRN IVP SEVERE PAIN 7-10; Start 07/01/20 at 15:45; Stop 07/01/20 at 18:22; Status DC Ringer's Solution 1,000 ml @ 30 mls/hr Q24H IV ; Start 07/01/20 at 15:45; Stop 07/02/20 at 03:44; Status DC Hydromorphone HCl (Dilaudid) 0.5 mg PRN Q10MIN PRN IVP SEVERE PAIN 7-10, 2nd CHOICE; Start 07/01/20 at 15:45; Stop 07/01/20 at 18:22; Status DC Prochlorperazine Edisylate (Compazine) 5 mg PACU PRN PRN IVP NAUSEA, MRX1; Start 07/01/20 at 15:45; Stop 07/01/20 at 18:22; Status DC Ondansetron HCl (Zofran) 4 mg STK-MED ONCE .ROUTE ; Start 07/01/20 at 16:32; Stop 07/01/20 at 16:33; Status DC Dexamethasone Sodium Phosphate (Decadron) 4 mg STK-MED ONCE .ROUTE ; Start 07/01/20 at 16:32; Stop 07/01/20 at 16:33; Status DC Sevoflurane (Ultane) 30 ml STK-MED ONCE IH ; Start 07/01/20 at 16:32; Stop 07/01/20 at 16:33; Status DC Neostigmine [place] (Neostigmine Methylsulfate) 5 mg STK-MED ONCE .ROUTE ; Start 07/01/20 at 16:32; Stop 07/01/20 at 16:33; Status DC Glycopyrrolate (Robinul) 1 mg STK-MED ONCE .ROUTE ; Start 07/01/20 at 16:33; Stop 07/01/20 at 16:33; Status DC Propofol (Diprivan) 200 mg STK-MED ONCE IV ; Start 07/01/20 at 16:55; Stop 07/01/20 at 16:55; Status DC Fentanyl Citrate (Fentanyl 2ml Vial) 100 mcg STK-MED ONCE .ROUTE ; Start 07/01/20 at 17:09; Stop 07/01/20 at 17:09; Status DC Oxycodone/ Acetaminophen (Percocet 5/325) 1 tab PRN Q4HRS PRN PO PAIN Last administered on 07/01/20at 19:50; Start 07/01/20 at 17:15 Oxycodone/ Acetaminophen (Percocet 5/325) 2 tab PRN Q4HRS PRN PO PAIN Last administered on 07/02/20at 08:35; Start 07/01/20 at 17:15 Ketorolac Tromethamine (Toradol 15mg Vial) 15 mg Q6HRS IVP Last administered on 07/02/20at 11:08; Start 07/01/20 at 18:00; Stop 07/03/20 at 17:59 Pantoprazole Sodium (Protonix) 40 mg DAILYAC PO Last administered on 07/02/20at 11:07; Start 07/02/20 at 11:00 Active Scripts Active Reported Ultram (Tramadol Hcl) 50 Mg Tablet 100 Mg PO TID PRN Gabapentin (Gabapentin) 300 Mg Capsule 300 Mg PO TID Zyrtec (Cetirizine Hcl) 10 Mg Tablet 1 Tab PO DAILY Testosterone Cypionate 200 Mg/1 Ml Vial 1 Ml IM Q2WKS Melatonin 3 Mg Tablet 1 Tab PO QHS Fish Oil 1,000 Mg Softgel ([place]-3 Fatty Acids/Fish Oil) 1 Each Capsule 1 Cap PO DAILY 30 Days Pepcid (Famotidine) 20 Mg Tablet 20 Mg PO BID Tylenol (Acetaminophen) 325 Mg Tablet 650 Mg PO TID Vitals/I & O Vital Sign - Last 24 Hours 07/01/20 07/01/20 07/01/20 07/01/20 15:00 15:05 15:40 15:42 Temp 101.7 101.7 Pulse 130 128 Resp 24 24 B/P (MAP) 144/88 (106) 127/85 (99) Pulse Ox 92 92 97 O2 Delivery Room Air Nasal Cannula O2 Flow Rate 2.0 2.0 2.0 07/01/20 07/01/20 07/01/20 07/01/20 17:20 17:20 17:35 17:49 Temp 98.8 98.8 Pulse 108 108 Resp 18 18 16 B/P (MAP) 138/77 126/75 Pulse Ox 95 95 95 O2 Delivery Mask Simple Mask Simple Mask Simple Mask O2 Flow Rate 6 6 6 6.0 07/01/20 07/01/20 07/01/20 07/01/20 17:50 17:53 17:58 18:05 Temp 99.9 99.9 Pulse 110 113 Resp 16 16 16 B/P (MAP) 121/72 119/73 Pulse Ox 96 96 96 O2 Delivery Simple Mask Room Air Room Air Nasal Cannula O2 Flow Rate 6 2 07/01/20 07/01/20 07/01/20 07/01/20 18:30 18:45 19:00 19:15 Pulse 110 116 111 113 Resp 18 18 18 18 B/P (MAP) 120/82 (95) 116/77 (90) 127/81 (96) 118/75 (89) Pulse Ox 92 94 94 95 O2 Delivery Nasal Cannula Nasal Cannula Nasal Cannula Nasal Cannula O2 Flow Rate 2.0 2.0 2.0 2.0 07/01/20 07/01/20 07/01/20 07/01/20 19:30 19:50 19:51 20:00 Pulse 83 100 Resp 18 16 16 18 B/P (MAP) 110/74 (86) 125/73 (90) Pulse Ox 95 96 96 96 O2 Delivery Nasal Cannula Room Air Room Air Nasal Cannula O2 Flow Rate 2.0 2.0 2.0 2.0 07/01/20 07/01/20 07/01/20 07/01/20 20:00 20:30 20:50 20:50 Pulse 98 Resp 18 16 16 B/P (MAP) 122/80 (94) Pulse Ox 96 96 96 O2 Delivery Room Air Nasal Cannula Room Air Room Air O2 Flow Rate 2.0 2.0 2.0 2.0 07/01/20 07/01/20 07/02/20 07/02/20 21:30 22:30 03:00 07:00 Temp 99.4 100.0 99.4 100.0 Pulse 95 94 116 114 Resp 16 B/P (MAP) 110/89 (96) 111/76 (88) 108/68 (81) 113/70 (84) Pulse Ox 95 94 88 92 O2 Delivery Nasal Cannula Nasal Cannula Nasal Cannula Room Air 07/02/20 07:12 O2 Delivery Room Air Intake and Output 07/01/20 07/01/20 07/02/20 15:00 23:00 07:00 Intake Total 3150 ml 100 ml Output Total 0 ml 610 ml 1 ml Balance 0 ml 2540 ml 99 ml Justicifation of Admission Dx: Justifications for Admission: Justification of Admission Dx: Yes Sepsis: Hemodynamic Instability JESSICA LOZANO MD Jul 02, 2020 11:29
--- NOTE | 2020-07-02 13:03 | PDOC ---
Infectious Disease Note Vital Sign Vital Signs Vital Signs Date Time Temp Pulse Resp B/P (MAP) Pulse Ox O2 Delivery O2 Flow Rate FiO2 07/02/20 11:00 99.5 104 18 120/68 (85) 94 Room Air 99.5 07/01/20 20:50 2.0 Labs Lab Laboratory Tests Test 07/01/20 20:20 07/02/20 07:15 07/02/20 12:13 Sodium Level 137 mmol/L (136-145) Potassium Level 4.2 mmol/L (3.5-5.1) Chloride Level 98 mmol/L (98-107) Carbon Dioxide Level 31 mmol/L (21-32) Anion Gap 8 (6-14) Blood Urea Nitrogen 11 mg/dL (8-26) Creatinine 1.3 mg/dL (0.7-1.3) Estimated GFR (Cockcroft-Gault) 60.5 Glucose Level 120 mg/dL (70-99) Lactic Acid Level 3.8 mmol/L (0.4-2.0) 1.4 mmol/L (0.4-2.0) 1.4 mmol/L (0.4-2.0) Calcium Level 7.6 mg/dL (8.5-10.1) White Blood Count 14.3 x10^3/uL (4.0-11.0) Red Blood Count 4.59 x10^6/uL (4.30-5.70) Hemoglobin 13.3 g/dL (13.0-17.5) Hematocrit 39.2 % (39.0-53.0) Mean Corpuscular Volume 85 fL (79-100) Mean Corpuscular Hemoglobin 29 pg (25-35) Mean Corpuscular Hemoglobin Concent 34 g/dL (31-37) Red Cell Distribution Width 13.0 % (11.5-14.5) Platelet Count 106 x10^3/uL (140-400) Neutrophils (%) (Auto) 89 % (31-73) Lymphocytes (%) (Auto) 5 % (24-48) Monocytes (%) (Auto) 6 % (0-9) Eosinophils (%) (Auto) 0 % (0-3) Basophils (%) (Auto) 0 % (0-3) Neutrophils # (Auto) 12.7 x10^3/uL (1.8-7.7) Lymphocytes # (Auto) 0.7 x10^3/uL (1.0-4.8) Monocytes # (Auto) 0.9 x10^3/uL (0.0-1.1) Eosinophils # (Auto) 0.0 x10^3/uL (0.0-0.7) Basophils # (Auto) 0.0 x10^3/uL (0.0-0.2) Segmented Neutrophils % 74 % (35-66) Band Neutrophils % 15 % (0-9) Lymphocytes % 4 % (24-48) Monocytes % 6 % (0-10) Myelocytes % 1 % (0-0) Platelet Estimate Decreased (ADEQUATE) Objective Assessment Acute appendicitis with perforation s/p lap appendectomy, 07/01/2020. Fever Leukocytosis Lactic acidosis GERD Dyslipidemia prisoner Plan Plan of Care Continue Zosyn Dose steroids pre-op f/u BC from [facility] from 07/01, so far are negative. Monitor WBC trend and temp Pain management per primary Full consult to follow Thank you [id number] D/w nursing and MPs - cont Zosyn - not a lot of previous infections Attending Co-Sign Attending Co-Sign The patient was seen and interviewed as well as examined at the bedside. The chart was reviewed. The case was discussed. Agree with the plan of care. KAREN FLOREZ APRN Jul 02, 2020 13:03 MONSERRAT HILL MD Jul 02, 2020 14:23
--- NOTE | 2020-07-02 14:09 | CONS ---
DATE OF CONSULTATION: 07/02/2020 Collins Roberson, nurse practitioner dictating for Dr. Monserrat Hill, Infectious Disease. REQUESTING PHYSICIAN: Dr. Barnes. REASON FOR CONSULTATION: Sepsis. HISTORY OF PRESENT ILLNESS: This patient is a 44-year-old male who is a member of the [employer] and currently a prisoner. Three days ago, he woke up at about 2 in the morning with acute onset of abdominal pain, nausea and vomiting. He was treated with Zofran, Pepcid and IV fluids. Later, the pain intensified and migrated to the right lower quadrant area. He developed fever and chills. He was taken to [facility] ER in [place]. He was found to have leukocytosis and elevated lactic acid. A CT abdomen and pelvis showed findings of acute appendicitis with possible rupture. He was transferred to [place] and taken to the OR on the for a laparoscopic appendectomy. The operative report noted a perforation. He was initially started on metronidazole and cefoxitin, which has since been changed to Zosyn. Today, the patient says he is feeling a little bit better, but still sick and running low-grade fever. He is tolerating some oral intake. He is passing some gas. Abdominal pain is controlled with pain medication. Nausea and vomiting have settled down. He denies recent hospitalizations or antibiotic use within the last few months. Denies shortness of air, wheezing or swelling. Denies rash or itching. PAST MEDICAL HISTORY: GERD, dyslipidemia, otosclerosis. PAST SURGICAL HISTORY: Laparoscopic appendectomy 07/01/2020. Arthroscopy bilateral knees. Vasectomy. Stapedectomy. SOCIAL HISTORY: Member of the [employer]. He is currently a prisoner. FAMILY HISTORY: Noncontributory. ALLERGIES: No known drug allergies. MEDICATIONS: Reviewed on the MAR includes Zosyn and preop dexamethasone. REVIEW OF SYSTEMS: Per HPI, otherwise all other review of systems are negative. PHYSICAL EXAMINATION: VITAL SIGNS: T-max 101.7, blood pressure 120/68, heart rate 104, respiratory rate 18, pulse oximetry 94% on room air. GENERAL: The patient is propped up in bed, alert, appears tired, eating lunch. Left wrist handcuffed to the bed. HEENT: Pupils equally round, reactive. Normal conjunctivae. Oropharynx pink and moist, no lesions seen. NECK: Supple. LUNGS: Clear to auscultation. No accessory muscle use. HEART: Normal S1, S2 regular. ABDOMEN: Obese, distended, soft, tender. Hypoactive bowel sounds. Surgical sites bandaged. EXTREMITIES: No gross edema or cyanosis. SKIN: Warm to touch. No signs of generalized rash. NEUROLOGIC: Alert and answering questions appropriately. He moves all extremities. LABORATORY DATA: Today's WBC 14.3 from 15.1 on admission, hemoglobin 13.3, platelets 106,000, segs 74%, bands 15%. Sodium 137, potassium 4.2, creatinine 1.3, BUN 11, glucose 120. Lactic acid 1.4 [address] 3.[address]. Procalcitonin 26.82. CT abdomen and pelvis per [facility]. Recent chest x-ray showed no focal consolidation, pleural effusion or pneumothorax. Blood cultures ([facility]) 07/01/2020 negative to date. COVID rapid negative. IMPRESSION: 1. Acute appendicitis with perforation, status post laparoscopic appendectomy 07/01/2020. 2. Fever. 3. Leukocytosis. 4. Lactic acidosis. 5. Gastroesophageal reflux disease. 6. Dyslipidemia. 7. prisoner. PLAN: 1. Continue the Zosyn. 2. Follow up blood cultures from [facility] from . So far, they are negative. 3. Monitor WBC trend and temperature. 4. Pain management per primary. 5. Supportive care. 6. Discussed with nursing. Thank you, Dr. Barnes, for asking us to participate in this patient's care. Should you have further questions or concerns, please call. Patient seen, examined and plan of care implemented by Dr. Hill. MONSERRAT HILL MD DR: SATHYA/neda JOB#: [id number] / [id number] KATIUSKA
[2020-07-02 15:00] VITALS: BP 105/72
[2020-07-02 19:00] VITALS: BP 118/64
--- NOTE | 2020-07-02 19:55 | NUR ---
NURSING NOTE Pt has temp of 102.6, HR 126 oxygen level was 82% n room air, up to 94% on 2L/NC. Julian EX ASSISTANT/PROGRAM DIRECTOR called for sepsis screen, no new orders. Dr. Rodriguez called and notified, ordered to continue oxygen, give tylenol, and continue antibiotics, and monitor pt.
[2020-07-02] MEDS: LACTOBACILLUS RHAMNOSUS GG 1 CAPSULE. PO SCH (20:14)
[2020-07-02] MEDS: ENOXAPARIN 40 MG/0.4 ML SYRINGE. SQ SCH (20:15)
[2020-07-02 23:00] VITALS: BP 115/77
[2020-07-03 03:00] VITALS: BP 123/77
[2020-07-03] MEDS: PIPERACILLIN/TAZOBACTAM 3.375 GM in IV NORMAL SALINE 50ML 50 ML IV SCH ×5 (05:19→23:39)
[2020-07-03] MEDS: HYDROmorphone 2 MG/ML VIAL IV PRN ×3 (05:19→16:41)
[2020-07-03] MEDS: KETOROLAC 15 MG/ML VIAL. IVP SCH ×3 (05:19→11:48)
[2020-07-03 05:29] LABS: BASO % 0 % (0-3); EOS # 0.1 x10^3/uL (0.0-0.7); EOS % 1 % (0-3); HEMATOCRIT 40.2 % (39.0-53.0); HEMOGLOBIN 13.4 g/dL (13.0-17.5); LYMPH % 9 % (24-48); MEAN CORPUSCULAR HEMOGLOBIN 29 pg (25-35); MEAN CORPUSCULAR HGB CONC 33 g/dL (31-37); MEAN CORPUSCULAR VOLUME 87 fL (79-100); MONO # 0.7 x10^3/uL (0.0-1.1); MONO % 7 % (0-9); NEUT # 9.4 x10^3/uL (1.8-7.7); NEUT % 84 % (31-73); PLATELET COUNT 103 x10^3/uL (140-400); RED BLOOD COUNT 4.63 x10^6/uL (4.30-5.70); RED CELL DISTRIBUTION WIDTH 13.6 % (11.5-14.5); WHITE BLOOD COUNT 11.2 x10^3/uL (4.0-11.0)
[2020-07-03 05:55] LABS: ALBUMIN 2.5 g/dL (3.4-5.0); ALBUMIN/GLOBULIN RATIO 0.6 (1.0-1.7); CALCIUM 7.7 mg/dL (8.5-10.1); CREATININE 1.2 mg/dL (0.7-1.3); GFR 66.4; POTASSIUM 4.2 mmol/L (3.5-5.1); TOTAL BILIRUBIN 0.8 mg/dL (0.2-1.0); TOTAL PROTEIN 6.7 g/dL (6.4-8.2)
[2020-07-03 07:19] VITALS: BP 113/83
[2020-07-03] MEDS: SENNOSIDES/DOCUSATE 8.6/50MG TABLET. PO SCH ×2 (08:07→21:28)
[2020-07-03] MEDS: LACTOBACILLUS RHAMNOSUS GG 1 CAPSULE. PO SCH ×2 (08:07→21:28)
[2020-07-03] MEDS: DOCUSATE SODIUM 100 MG CAPSULE. PO SCH ×2 (08:07→21:28)
[2020-07-03] MEDS: PANTOPRAZOLE 40 MG TABLET.DR. PO SCH (08:07)
[2020-07-03] MEDS: oxyCODONE/APAP 5/325 1 TAB TABLET PO PRN ×3 (08:34→21:33)
--- NOTE | 2020-07-03 08:53 | PDOC ---
JAMESON PELAYO GARLAND MAKER 07/03/20 0853: SURGICAL PROGRESS NOTE DATE: 07/03/20 TIME: 08:51 Subjective sore, still improving daily + flatus Vital Signs Vital Signs Date Time Temp Pulse Resp B/P (MAP) Pulse Ox O2 Delivery O2 Flow Rate FiO2 07/03/20 08:34 16 Room Air 07/03/20 07:19 99.5 113 113/83 (93) 95 2.0 99.5 I&O Intake and Output 07/03/20 07:00 Intake Total 850 ml Balance 850 ml Intake Oral 750 ml IV Total 100 ml # Voids 4 General: Alert, Oriented X3, Cooperative Abdomen: Soft, Other (lap dressings dry) Labs Laboratory Tests Test 07/01/20 20:20 07/02/20 07:15 07/02/20 12:13 07/03/20 05:05 Sodium Level 137 mmol/L (136-145) 134 mmol/L (136-145) Potassium Level 4.2 mmol/L (3.5-5.1) 4.2 mmol/L (3.5-5.1) Chloride Level 98 mmol/L (98-107) 99 mmol/L (98-107) Carbon Dioxide Level 31 mmol/L (21-32) 32 mmol/L (21-32) Anion Gap 8 (6-14) 3 (6-14) Blood Urea Nitrogen 11 mg/dL (8-26) 12 mg/dL (8-26) Creatinine 1.3 mg/dL (0.7-1.3) 1.2 mg/dL (0.7-1.3) Estimated GFR (Cockcroft-Gault) 60.5 66.4 Glucose Level 120 mg/dL (70-99) 103 mg/dL (70-99) Lactic Acid Level 3.8 mmol/L (0.4-2.0) 1.4 mmol/L (0.4-2.0) 1.4 mmol/L (0.4-2.0) Calcium Level 7.6 mg/dL (8.5-10.1) 7.7 mg/dL (8.5-10.1) White Blood Count 14.3 x10^3/uL (4.0-11.0) 11.2 x10^3/uL (4.0-11.0) Red Blood Count 4.59 x10^6/uL (4.30-5.70) 4.63 x10^6/uL (4.30-5.70) Hemoglobin 13.3 g/dL (13.0-17.5) 13.4 g/dL (13.0-17.5) Hematocrit 39.2 % (39.0-53.0) 40.2 % (39.0-53.0) Mean Corpuscular Volume 85 fL (79-100) 87 fL (79-100) Mean Corpuscular Hemoglobin 29 pg (25-35) 29 pg (25-35) Mean Corpuscular Hemoglobin Concent 34 g/dL (31-37) 33 g/dL (31-37) Red Cell Distribution Width 13.0 % (11.5-14.5) 13.6 % (11.5-14.5) Platelet Count 106 x10^3/uL (140-400) 103 x10^3/uL (140-400) Neutrophils (%) (Auto) 89 % (31-73) 84 % (31-73) Lymphocytes (%) (Auto) 5 % (24-48) 9 % (24-48) Monocytes (%) (Auto) 6 % (0-9) 7 % (0-9) Eosinophils (%) (Auto) 0 % (0-3) 1 % (0-3) Basophils (%) (Auto) 0 % (0-3) 0 % (0-3) Neutrophils # (Auto) 12.7 x10^3/uL (1.8-7.7) 9.4 x10^3/uL (1.8-7.7) Lymphocytes # (Auto) 0.7 x10^3/uL (1.0-4.8) 1.0 x10^3/uL (1.0-4.8) Monocytes # (Auto) 0.9 x10^3/uL (0.0-1.1) 0.7 x10^3/uL (0.0-1.1) Eosinophils # (Auto) 0.0 x10^3/uL (0.0-0.7) 0.1 x10^3/uL (0.0-0.7) Basophils # (Auto) 0.0 x10^3/uL (0.0-0.2) 0.0 x10^3/uL (0.0-0.2) Segmented Neutrophils % 74 % (35-66) Band Neutrophils % 15 % (0-9) Lymphocytes % 4 % (24-48) Monocytes % 6 % (0-10) Myelocytes % 1 % (0-0) Platelet Estimate Decreased (ADEQUATE) Procalcitonin 26.82 ng/mL (0.00-0.10) BUN/Creatinine Ratio 10 (6-20) Total Bilirubin 0.8 mg/dL (0.2-1.0) Aspartate Amino Transf (AST/SGOT) 41 U/L (15-37) Alanine Aminotransferase (ALT/SGPT) 41 U/L (16-63) Alkaline Phosphatase 53 U/L (46-116) Total Protein 6.7 g/dL (6.4-8.2) Albumin 2.5 g/dL (3.4-5.0) Albumin/Globulin Ratio 0.6 (1.0-1.7) Laboratory Tests Test 07/02/20 12:13 07/03/20 05:05 Lactic Acid Level 1.4 mmol/L (0.4-2.0) White Blood Count 11.2 x10^3/uL (4.0-11.0) Red Blood Count 4.63 x10^6/uL (4.30-5.70) Hemoglobin 13.4 g/dL (13.0-17.5) Hematocrit 40.2 % (39.0-53.0) Mean Corpuscular Volume 87 fL (79-100) Mean Corpuscular Hemoglobin 29 pg (25-35) Mean Corpuscular Hemoglobin Concent 33 g/dL (31-37) Red Cell Distribution Width 13.6 % (11.5-14.5) Platelet Count 103 x10^3/uL (140-400) Neutrophils (%) (Auto) 84 % (31-73) Lymphocytes (%) (Auto) 9 % (24-48) Monocytes (%) (Auto) 7 % (0-9) Eosinophils (%) (Auto) 1 % (0-3) Basophils (%) (Auto) 0 % (0-3) Neutrophils # (Auto) 9.4 x10^3/uL (1.8-7.7) Lymphocytes # (Auto) 1.0 x10^3/uL (1.0-4.8) Monocytes # (Auto) 0.7 x10^3/uL (0.0-1.1) Eosinophils # (Auto) 0.1 x10^3/uL (0.0-0.7) Basophils # (Auto) 0.0 x10^3/uL (0.0-0.2) Sodium Level 134 mmol/L (136-145) Potassium Level 4.2 mmol/L (3.5-5.1) Chloride Level 99 mmol/L (98-107) Carbon Dioxide Level 32 mmol/L (21-32) Anion Gap 3 (6-14) Blood Urea Nitrogen 12 mg/dL (8-26) Creatinine 1.2 mg/dL (0.7-1.3) Estimated GFR (Cockcroft-Gault) 66.4 BUN/Creatinine Ratio 10 (6-20) Glucose Level 103 mg/dL (70-99) Calcium Level 7.7 mg/dL (8.5-10.1) Total Bilirubin 0.8 mg/dL (0.2-1.0) Aspartate Amino Transf (AST/SGOT) 41 U/L (15-37) Alanine Aminotransferase (ALT/SGPT) 41 U/L (16-63) Alkaline Phosphatase 53 U/L (46-116) Total Protein 6.7 g/dL (6.4-8.2) Albumin 2.5 g/dL (3.4-5.0) Albumin/Globulin Ratio 0.6 (1.0-1.7) Assessment/Plan s/p appy, perf slowly improving, wbc normal, fevers improved continue abx Justicifation of Admission Dx: Justifications for Admission: Justification of Admission Dx: Yes Sepsis: Hemodynamic Instability JESSICA MTZ MD 07/03/20 0940: SURGICAL PROGRESS NOTE Assessment/Plan Agree with Cruz assessment plan JAMESON PELAYO APRN Jul 03, 2020 08:53 JESSICA MTZ MD Jul 03, 2020 09:40
--- NOTE | 2020-07-03 09:50 | PDOC ---
Infectious Disease Note Subjective Subjective c/o chest pain with deep breathing ROS ROS no n/v/d/fever Vital Sign Vital Signs Vital Signs Date Time Temp Pulse Resp B/P (MAP) Pulse Ox O2 Delivery O2 Flow Rate FiO2 07/03/20 09:36 16 Room Air 07/03/20 07:19 99.5 113 113/83 (93) 95 2.0 99.5 Physical Exam PHYSICAL EXAM GENERAL: The patient is propped up in bed, alert, appears tired, eating lunch. Left wrist handcuffed to the bed. HEENT: Pupils equally round, reactive. Normal conjunctivae. Oropharynx pink and moist, no lesions seen. NECK: Supple. LUNGS: Clear to auscultation. No accessory muscle use. HEART: Normal S1, S2 regular. ABDOMEN: Obese, distended, soft, tender. Hypoactive bowel sounds. Surgical sites bandaged. EXTREMITIES: No gross edema or cyanosis. SKIN: Warm to touch. No signs of generalized rash. NEUROLOGIC: Alert and answering questions appropriately. He moves all extremities. Labs Lab Laboratory Tests Test 07/02/20 12:13 07/03/20 05:05 Lactic Acid Level 1.4 mmol/L (0.4-2.0) White Blood Count 11.2 x10^3/uL (4.0-11.0) Red Blood Count 4.63 x10^6/uL (4.30-5.70) Hemoglobin 13.4 g/dL (13.0-17.5) Hematocrit 40.2 % (39.0-53.0) Mean Corpuscular Volume 87 fL (79-100) Mean Corpuscular Hemoglobin 29 pg (25-35) Mean Corpuscular Hemoglobin Concent 33 g/dL (31-37) Red Cell Distribution Width 13.6 % (11.5-14.5) Platelet Count 103 x10^3/uL (140-400) Neutrophils (%) (Auto) 84 % (31-73) Lymphocytes (%) (Auto) 9 % (24-48) Monocytes (%) (Auto) 7 % (0-9) Eosinophils (%) (Auto) 1 % (0-3) Basophils (%) (Auto) 0 % (0-3) Neutrophils # (Auto) 9.4 x10^3/uL (1.8-7.7) Lymphocytes # (Auto) 1.0 x10^3/uL (1.0-4.8) Monocytes # (Auto) 0.7 x10^3/uL (0.0-1.1) Eosinophils # (Auto) 0.1 x10^3/uL (0.0-0.7) Basophils # (Auto) 0.0 x10^3/uL (0.0-0.2) Sodium Level 134 mmol/L (136-145) Potassium Level 4.2 mmol/L (3.5-5.1) Chloride Level 99 mmol/L (98-107) Carbon Dioxide Level 32 mmol/L (21-32) Anion Gap 3 (6-14) Blood Urea Nitrogen 12 mg/dL (8-26) Creatinine 1.2 mg/dL (0.7-1.3) Estimated GFR (Cockcroft-Gault) 66.4 BUN/Creatinine Ratio 10 (6-20) Glucose Level 103 mg/dL (70-99) Calcium Level 7.7 mg/dL (8.5-10.1) Total Bilirubin 0.8 mg/dL (0.2-1.0) Aspartate Amino Transf (AST/SGOT) 41 U/L (15-37) Alanine Aminotransferase (ALT/SGPT) 41 U/L (16-63) Alkaline Phosphatase 53 U/L (46-116) Total Protein 6.7 g/dL (6.4-8.2) Albumin 2.5 g/dL (3.4-5.0) Albumin/Globulin Ratio 0.6 (1.0-1.7) Micro Microbiology 07/01/20 Blood Culture - Preliminary, Resulted NO GROWTH AFTER 1 DAY 07/01/20 Gram Stain - Final, Resulted 07/01/20 Aerobic and Anaerobic Culture, Resulted Pending Objective Assessment IMPRESSION: 1. Acute appendicitis with perforation, status post laparoscopic appendectomy 07/01/2020. 2. Fever. 3. Leukocytosis. 4. Lactic acidosis. 5. Gastroesophageal reflux disease. 6. Dyslipidemia. 7. prisoner. Plan Plan of Care Continue Zosyn Dose steroids pre-op f/u BC from [facility] from 07/01, so far are negative. Monitor WBC trend and temp Pain management per primary D/w nursing AYANNA SCHMIDT MD Jul 03, 2020 09:50
[2020-07-03 10:48] VITALS: BP 104/75
--- NOTE | 2020-07-03 11:02 | PDOC ---
[employer] PROGRESS NOTE Date of Service DOS: DATE: 07/03/20 TIME: 11:00 Chief Complaint Chief Complaint sepsis again today, fever, Acute appendicitis with concern for microperforation History of GERD History of dyslipidemia Leukocytosis secondary to the above Elevated lactic acid secondary to acute infectious process SEPSIS cont the Zosyn, Pain management Blood cultures Surgical consult POD # 2 ID CONSULT following Justifications for Admission Justifications for Admission Other Justification CT scan showed signs consistent with acute appendicitis with perforation History of Present Illness History of Present Illness plan P cxr, cont abd, Zofran PRN, fever this AM, start PT and OT as able Patient is a 44-year-old gentleman with past medical history of GERD, dyslipidemia who was in his usual state of health until the morning prior to his admission when he woke up from his sleep with right lower quadrant abdominal pain. The patient takes Ultram on a regular basis and self medicated. He is currently incarcerated in the skilled nursing. He was given symptomatic relief of his symptoms that also included nausea and vomiting. The patient has history of GERD his pain improved with the Ultram nevertheless it recurred later in the day and this morning he experienced fever and chills reason why he was transported to the local ER for further evaluation and treatment. The patient had a CT of the abdomen which revealed acute appendicitis and had an elevated white blood cell count he was tachycardic and having an acute febrile illness of 101 Fahrenheit. [employer] product consultant was contacted and he requested transfer to our institution for definitive treatment. At the time my evaluation the patient is in acute distress due to the abdominal discomfort right lower quadrant no peritoneal signs patient is uncomfortable diaphoretic and tachycardic certainly in acute distress. Nontoxic looking and seems to be perfusing. As per report per ER physician lactic acid was 2.7 reason why we had requested an ICU bed initially. [employer] drm consultant is in route at this point to take the patient to the OR for definitive definitive treatment. Laboratory data from outside facility has been reviewed and also imaging study results as well. He has received cephalosporin and Flagyl in the outside facility and will continue with Zosyn perioperatively. The patient describes the pain as a sharp sensation 10 out of 10 intensity with no radiation to the groin no radiation to the back no urinary symptoms were reported nausea and vomiting of gastric content was reported by the patient no other associated symptoms. The plan of care explained in detail and all of his concerns were addressed to the best of my abilities Past Medical History Cardiovascular: Hyperlipidemia GI: GERD Past Surgical History Past Surgical History: No pertinent history Family History Family History: No Significant Social History Smoke: No ALCOHOL: none Drugs: None 07-02 pain fair, ID CONSULTED, BLOOD CULT PENDING, CONT IV ZOSYN D/W RN Vitals/I&O Vitals/I&O: Vital Signs Date Time Temp Pulse Resp B/P (MAP) Pulse Ox O2 Delivery O2 Flow Rate FiO2 07/03/20 10:48 100.3 128 18 104/75 (85) 92 100.3 07/03/20 10:12 Room Air 07/03/20 07:19 2.0 I & O 07/02/20 07/02/20 07/03/20 15:00 23:00 07:00 Intake Total 850 ml Balance 850 ml Physical Exam Physical Exam: GENERAL: The patient is propped up in bed, alert, appears tired, eating lunch. Left wrist handcuffed to the bed. HEENT: Pupils equally round, reactive. Normal conjunctivae. Oropharynx pink and moist, no lesions seen. NECK: Supple. LUNGS: Clear to auscultation. No accessory muscle use. HEART: Normal S1, S2 regular. ABDOMEN: Obese, distended, soft, tender. Hypoactive bowel sounds. Surgical sites bandaged. EXTREMITIES: No gross edema or cyanosis. SKIN: Warm to touch. No signs of generalized rash. NEUROLOGIC: Alert and answering questions appropriately. He moves all extremities. General: Alert, Oriented X3, Cooperative Heart: Regular rate, Normal S1, Normal S2, Other (Tachycardic) Lungs: Clear Abdomen: Soft, Other (lap dressings dry) Extremities: No clubbing, No cyanosis, No edema Skin: No significant lesion Labs Labs: Laboratory Tests Test 07/02/20 12:13 07/03/20 05:05 Lactic Acid Level 1.4 mmol/L (0.4-2.0) White Blood Count 11.2 x10^3/uL (4.0-11.0) Red Blood Count 4.63 x10^6/uL (4.30-5.70) Hemoglobin 13.4 g/dL (13.0-17.5) Hematocrit 40.2 % (39.0-53.0) Mean Corpuscular Volume 87 fL (79-100) Mean Corpuscular Hemoglobin 29 pg (25-35) Mean Corpuscular Hemoglobin Concent 33 g/dL (31-37) Red Cell Distribution Width 13.6 % (11.5-14.5) Platelet Count 103 x10^3/uL (140-400) Neutrophils (%) (Auto) 84 % (31-73) Lymphocytes (%) (Auto) 9 % (24-48) Monocytes (%) (Auto) 7 % (0-9) Eosinophils (%) (Auto) 1 % (0-3) Basophils (%) (Auto) 0 % (0-3) Neutrophils # (Auto) 9.4 x10^3/uL (1.8-7.7) Lymphocytes # (Auto) 1.0 x10^3/uL (1.0-4.8) Monocytes # (Auto) 0.7 x10^3/uL (0.0-1.1) Eosinophils # (Auto) 0.1 x10^3/uL (0.0-0.7) Basophils # (Auto) 0.0 x10^3/uL (0.0-0.2) Sodium Level 134 mmol/L (136-145) Potassium Level 4.2 mmol/L (3.5-5.1) Chloride Level 99 mmol/L (98-107) Carbon Dioxide Level 32 mmol/L (21-32) Anion Gap 3 (6-14) Blood Urea Nitrogen 12 mg/dL (8-26) Creatinine 1.2 mg/dL (0.7-1.3) Estimated GFR (Cockcroft-Gault) 66.4 BUN/Creatinine Ratio 10 (6-20) Glucose Level 103 mg/dL (70-99) Calcium Level 7.7 mg/dL (8.5-10.1) Total Bilirubin 0.8 mg/dL (0.2-1.0) Aspartate Amino Transf (AST/SGOT) 41 U/L (15-37) Alanine Aminotransferase (ALT/SGPT) 41 U/L (16-63) Alkaline Phosphatase 53 U/L (46-116) Total Protein 6.7 g/dL (6.4-8.2) Albumin 2.5 g/dL (3.4-5.0) Albumin/Globulin Ratio 0.6 (1.0-1.7) Comment Review of Relevant I have reviewed the following items tawana (where applicable) has been applied. Medications: Current Medications Medications (Trade) Dose Ordered Sig/Kaden Route PRN Reason Start Time Stop Time Status Last Admin Dose Admin Lactobacillus Rhamnosus (Culturelle) 1 cap BID PO 07/02/20 21:00 07/03/20 08:07 Justifications for Admission Other Justification AALIYAH KIRKPATRICK MD Jul 03, 2020 11:02
[2020-07-03] MEDS: ONDANSETRON PF 4 MG/2 ML VIAL. IVP PRN (11:40)
[2020-07-03] MEDS ORDERED: IV NORMAL SALINE 1000ML BAG 1,000 ML IV ONE (11:45)
[2020-07-03 14:30] VITALS: BP 120/79
--- NOTE | 2020-07-03 18:01 | RAD ---
AP chest. HISTORY: Fever AP view was taken of the chest. Patient's taken a poor inspiration. There is a hiatus hernia behind t he heart. There is atelectasis in the left lung base although mild infiltrate is possible. There is n o pleural effusion. IMPRESSION: 1. Poor inspiration. 2. Left base atelectasis. Electronically signed by: Romulo Aldana MD (07/03/2020 5:59 PM) [id number]
[2020-07-03 19:00] VITALS: BP 110/71
[2020-07-03] MEDS: ACETAMINOPHEN 325 MG TABLET. PO PRN ×2 (19:25→23:39)
[2020-07-03] MEDS: ENOXAPARIN 40 MG/0.4 ML SYRINGE. SQ SCH (21:28)
[2020-07-03 23:00] VITALS: BP 111/68
[2020-07-04] MEDS: oxyCODONE/APAP 5/325 1 TAB TABLET PO PRN ×3 (02:21→17:16)
[2020-07-04 03:00] VITALS: BP 128/84
[2020-07-04] MEDS: PANTOPRAZOLE 40 MG TABLET.DR. PO SCH (05:52)
[2020-07-04] MEDS: PIPERACILLIN/TAZOBACTAM 3.375 GM in IV NORMAL SALINE 50ML 50 ML IV SCH (05:52)
[2020-07-04 07:14] VITALS: BP 135/82
[2020-07-04] MEDS: ONDANSETRON PF 4 MG/2 ML VIAL. IVP PRN (08:14)
[2020-07-04] MEDS: DOCUSATE SODIUM 100 MG CAPSULE. PO SCH ×2 (08:41→20:45)
[2020-07-04] MEDS: LACTOBACILLUS RHAMNOSUS GG 1 CAPSULE. PO SCH ×2 (08:41→20:45)
[2020-07-04] MEDS: SENNOSIDES/DOCUSATE 8.6/50MG TABLET. PO SCH ×2 (08:41→20:45)
--- NOTE | 2020-07-04 09:03 | PDOC ---
Infectious Disease Note Subjective Subjective c/o fever and chills, body ache ROS ROS no n/v/d Vital Sign Vital Signs Vital Signs Date Time Temp Pulse Resp B/P (MAP) Pulse Ox O2 Delivery O2 Flow Rate FiO2 07/04/20 07:14 100.8 102 18 135/82 (99) 93 100.8 07/04/20 03:21 Room Air 07/03/20 07:19 2.0 Physical Exam PHYSICAL EXAM GENERAL: The patient is propped up in bed, alert, appears tired, eating lunch. Left wrist handcuffed to the bed. HEENT: Pupils equally round, reactive. Normal conjunctivae. Oropharynx pink and moist, no lesions seen. NECK: Supple. LUNGS: Clear to auscultation. No accessory muscle use. HEART: Normal S1, S2 regular. ABDOMEN: Obese, distended, soft, tender. Hypoactive bowel sounds. Surgical sites bandaged. EXTREMITIES: No gross edema or cyanosis. SKIN: Warm to touch. No signs of generalized rash. NEUROLOGIC: Alert and answering questions appropriately. He moves all extremities. Labs Micro GRAM STAIN Final Final GRAM NEGATIVE RODS:RARE GRAM POSITIVE COCCI:RARE SQUAMOUS EPI CELL:NOT APPLICABLE PMN (WBCs):MANY Unless otherwise specified, Testing Performed by: [address] [address] For Inquires, the Physician may contact the Microbiology department at [phone] ANAEROBIC-AEROBIC CULTURE Preliminary Preliminary FEW GRAM NEGATIVE RODS on 07/03/20 at 0986 FINAL ID= [ESCHERICHIA COLI] RARE [CITROBACTER KOSERI] on 07/03/20 at 1253 ESCHERICHIA COLI CITROBACTER KOSERI Unless otherwise specified, Testing Performed by: [address] [address] For Inquires, the Physician may contact the Microbiology department at [phone] Objective Assessment IMPRESSION: 1. Acute appendicitis with perforation, status post laparoscopic appendectomy 07/01/2020. 2. Fever. 3. Leukocytosis. 4. Lactic acidosis. 5. Gastroesophageal reflux disease. 6. Dyslipidemia. 7. prisoner. Plan Plan of Care change zosyn to meropenem get ct Dose steroids pre-op f/u BC from [facility] from 07/01, so far are negative. Monitor WBC trend and temp Pain management per primary D/w nursing AYANNA SCHMIDT MD Jul 04, 2020 09:02
[2020-07-04] MEDS ORDERED: IOHEXOL 300 MG/ML 100ML VIAL. IV ONE (09:30)
[2020-07-04] MEDS ORDERED: CONTRAST GIVEN. MC PRN (09:30)
[2020-07-04] MEDS ORDERED: IOHEXOL 240 MG/ML 50ML VIAL. PO ONE (09:30)
[2020-07-04 10:41] VITALS: BP 130/83
--- NOTE | 2020-07-04 11:07 | PDOC ---
JAMESON PELAYO FORESTRY FIRE AIDE 07/04/20 1107: SURGICAL PROGRESS NOTE DATE: 07/04/20 TIME: 11:06 Subjective sore, weak + flatus Vital Signs Vital Signs Date Time Temp Pulse Resp B/P (MAP) Pulse Ox O2 Delivery O2 Flow Rate FiO2 07/04/20 10:41 100.6 104 18 130/83 (99) 90 100.6 07/04/20 03:21 Room Air 07/03/20 07:19 2.0 I&O Intake and Output 07/04/20 07:00 Intake Total 600 ml Balance 600 ml Intake Oral 500 ml IV Total 100 ml # Voids 1 General: Alert, Oriented X3, Cooperative Abdomen: Soft, Other (lap dressings dry) Labs Laboratory Tests Test 07/02/20 12:13 07/03/20 05:05 Lactic Acid Level 1.4 mmol/L (0.4-2.0) White Blood Count 11.2 x10^3/uL (4.0-11.0) Red Blood Count 4.63 x10^6/uL (4.30-5.70) Hemoglobin 13.4 g/dL (13.0-17.5) Hematocrit 40.2 % (39.0-53.0) Mean Corpuscular Volume 87 fL (79-100) Mean Corpuscular Hemoglobin 29 pg (25-35) Mean Corpuscular Hemoglobin Concent 33 g/dL (31-37) Red Cell Distribution Width 13.6 % (11.5-14.5) Platelet Count 103 x10^3/uL (140-400) Neutrophils (%) (Auto) 84 % (31-73) Lymphocytes (%) (Auto) 9 % (24-48) Monocytes (%) (Auto) 7 % (0-9) Eosinophils (%) (Auto) 1 % (0-3) Basophils (%) (Auto) 0 % (0-3) Neutrophils # (Auto) 9.4 x10^3/uL (1.8-7.7) Lymphocytes # (Auto) 1.0 x10^3/uL (1.0-4.8) Monocytes # (Auto) 0.7 x10^3/uL (0.0-1.1) Eosinophils # (Auto) 0.1 x10^3/uL (0.0-0.7) Basophils # (Auto) 0.0 x10^3/uL (0.0-0.2) Sodium Level 134 mmol/L (136-145) Potassium Level 4.2 mmol/L (3.5-5.1) Chloride Level 99 mmol/L (98-107) Carbon Dioxide Level 32 mmol/L (21-32) Anion Gap 3 (6-14) Blood Urea Nitrogen 12 mg/dL (8-26) Creatinine 1.2 mg/dL (0.7-1.3) Estimated GFR (Cockcroft-Gault) 66.4 BUN/Creatinine Ratio 10 (6-20) Glucose Level 103 mg/dL (70-99) Calcium Level 7.7 mg/dL (8.5-10.1) Total Bilirubin 0.8 mg/dL (0.2-1.0) Aspartate Amino Transf (AST/SGOT) 41 U/L (15-37) Alanine Aminotransferase (ALT/SGPT) 41 U/L (16-63) Alkaline Phosphatase 53 U/L (46-116) Total Protein 6.7 g/dL (6.4-8.2) Albumin 2.5 g/dL (3.4-5.0) Albumin/Globulin Ratio 0.6 (1.0-1.7) Problem List s/p appy, perf fevers, CT pending Justicifation of Admission Dx: Justifications for Admission: Justification of Admission Dx: Yes Sepsis: Hemodynamic Instability JESSICA MTZ MD 07/04/20 1159: SURGICAL PROGRESS NOTE Assessment/Plan Agree with Jack's assessment and plan JAMESON PELAYO APRN Jul 04, 2020 11:07 JESSICA MTZ MD Jul 04, 2020 11:59
[2020-07-04] MEDS: MEROPENEM 500 MG in IV NORMAL SALINE 50ML 50 ML IV SCH ×2 (11:57→17:54)
--- NOTE | 2020-07-04 13:43 | PDOC ---
[facility] PROGRESS NOTE Date of Service DOS: DATE: 07/04/20 TIME: 13:44 Chief Complaint Chief Complaint sepsis again today, fever, Acute appendicitis with concern for microperforation History of GERD History of dyslipidemia Leukocytosis secondary to the above Elevated lactic acid secondary to acute infectious process SEPSIS cont the Zosyn, Pain management Blood cultures Surgical consult POD # 2 ID CONSULT following Justifications for Admission Justifications for Admission Other Justification CT scan showed signs consistent with acute appendicitis with perforation History of Present Illness History of Present Illness CT scan abd, may have abcess. abx changed to MERREM today feels bettetr with Zofran PRN, fever this AM, PT and OT as able Patient is a 44-year-old gentleman with past medical history of GERD, dyslipidemia who was in his usual state of health until the morning prior to his admission when he woke up from his sleep with right lower quadrant abdominal pain. The patient takes Ultram on a regular basis and self medicated. He is currently incarcerated in the nursing home. He was given symptomatic relief of his symptoms that also included nausea and vomiting. The patient has history of GERD his pain improved with the Ultram nevertheless it recurred later in the day and this morning he experienced fever and chills reason why he was transported to the local ER for further evaluation and treatment. The patient had a CT of the abdomen which revealed acute appendicitis and had an elevated white blood cell count he was tachycardic and having an acute febrile illness of 101 Fahrenheit. digital media sales consultant was contacted and he requested transfer to our institution for definitive treatment. At the time my evaluation the patient is in acute distress due to the abdominal discomfort right lower quadrant no peritoneal signs patient is uncomfortable diaphoretic and tachycardic certainly in acute distress. Nontoxic looking and seems to be perfusing. As per report per ER physician lactic acid was 2.7 reason why we had requested an ICU bed initially. public relations consultant is in route at this point to take the patient to the OR for definitive definitive treatment. Laboratory data from outside facility has been reviewed and also imaging study results as well. He has received cephalosporin and Flagyl in the outside facility and will continue with Zosyn perioperatively. The patient describes the pain as a sharp sensation 10 out of 10 intensity with no radiation to the groin no radiation to the back no urinary symptoms were reported nausea and vomiting of gastric content was reported by the patient no other associated symptoms. The plan of care explained in detail and all of his concerns were addressed to the best of my abilities Past Medical History Cardiovascular: Hyperlipidemia GI: GERD Past Surgical History Past Surgical History: No pertinent history Family History Family History: No Significant Social History Smoke: No ALCOHOL: none Drugs: None 3- pain fair, ID CONSULTED, BLOOD CULT PENDING, CONT IV ZOSYN D/W RN Vitals/I&O Vitals/I&O: Vital Signs Date Time Temp Pulse Resp B/P (MAP) Pulse Ox O2 Delivery O2 Flow Rate FiO2 07/04/20 10:41 100.6 104 18 130/83 (99) 90 100.6 07/04/20 08:00 Room Air 07/03/20 07:19 2.0 I & O 07/03/20 07/03/20 07/04/20 14:57 22:57 06:57 Intake Total 600 ml Balance 600 ml Physical Exam Physical Exam: GENERAL: The patient is propped up in bed, alert, appears tired, eating lunch. Left wrist handcuffed to the bed. HEENT: Pupils equally round, reactive. Normal conjunctivae. Oropharynx pink and moist, no lesions seen. NECK: Supple. LUNGS: Clear to auscultation. No accessory muscle use. HEART: Normal S1, S2 regular. ABDOMEN: Obese, distended, soft, tender. Hypoactive bowel sounds. Surgical sites bandaged. EXTREMITIES: No gross edema or cyanosis. SKIN: Warm to touch. No signs of generalized rash. NEUROLOGIC: Alert and answering questions appropriately. He moves all extremities. General: Alert, Oriented X3, Cooperative Heart: Regular rate, Normal S1, Normal S2, Other (Tachycardic) Lungs: Clear Abdomen: Soft, Other (lap dressings dry) Extremities: No clubbing, No cyanosis, No edema Skin: No significant lesion Comment Review of Relevant I have reviewed the following items tawana (where applicable) has been applied. Medications: Current Medications Medications (Trade) Dose Ordered Sig/Kaden Route PRN Reason Start Time Stop Time Status Last Admin Dose Admin Meropenem 500 mg/ Sodium Chloride 50 ml @ 100 mls/hr Q6HRS IV 07/04/20 12:00 07/04/20 11:57 Linezolid/Dextrose 300 ml @ 300 mls/hr Q12HR IV 07/04/20 10:00 07/04/20 09:39 Iohexol (Omnipaque 300 Mg/ml) 75 ml 1X ONCE IV 07/04/20 09:30 07/04/20 09:31 DC 07/04/20 09:30 Iohexol (Omnipaque 240 Mg/ml) 50 ml 1X ONCE PO 07/04/20 09:30 07/04/20 09:31 DC 07/04/20 09:30 Justifications for Admission Other Justification AALIYAH KIRKPATRICK MD Jul 04, 2020 13:43
[2020-07-04 14:32] VITALS: BP 133/84
--- NOTE | 2020-07-04 15:30 | RAD ---
CT scan of the abdomen and pelvis with contrast 07/04/2020 CLINICAL HISTORY: Fever post appendectomy. TECHNIQUE: After the oral administration of contrast and the intravenous administration of 91 cc of I sovue-370 only, contiguous, 5 mm axial sections were obtained through the abdomen and pelvis. One or more of the following individualized dose reduction techniques were utilized for this study: 1. Automated exposure control. 2. Adjustment of the mA and/or kV according to patient size. 3. Use of iterative reconstruction technique. FINDINGS: Comparison study is dated 07/01/2020. Images through the lung bases demonstrate areas of atelectasis and/or infiltrate involving both lower lobes, left greater than right. There are very small bilateral pleural effusions. The liver, spleen, pancreas, adrenal glands and kidneys are within normal limits. The gallbladder is slightly contracted. There is no evidence of bowel obstruction. No free fluid or f ree air is seen within the abdomen. Surgical changes are seen consistent with an appendectomy. Lateral and posterior to the cecum a round ed low-attenuation area is seen which contains small collections of air. This measures 5.3 x 3.5 x 3. 3 cm in craniocaudal, transverse and AP dimensions. This is concerning for a developing abscess. Images through the pelvis demonstrate the urinary bladder distended with urine. A very small amount o f free fluid is seen within the pelvis. The osseous structures are unchanged. IMPRESSION: 5.3 cm low-attenuation area is seen posterior and lateral to the cecum which contains sma ll collections of air. This is concerning for a developing abscess. Electronically signed by: Manoj Killian MD (07/04/2020 3:28 PM) [id number]
[2020-07-04 19:00] VITALS: BP 125/86
[2020-07-04] MEDS: ACETAMINOPHEN 325 MG TABLET. PO PRN (20:45)
[2020-07-04] MEDS: ENOXAPARIN 40 MG/0.4 ML SYRINGE. SQ SCH (20:48)
[2020-07-04 22:57] VITALS: BP 122/84
[2020-07-05] VITALS (16 sets, daily range): BP systolic 110–139; BP diastolic 71–91
[2020-07-05] MEDS: MEROPENEM 500 MG in IV NORMAL SALINE 50ML 50 ML IV SCH ×5 (00:52→23:43)
[2020-07-05] MEDS: oxyCODONE/APAP 5/325 1 TAB TABLET PO PRN ×4 (01:48→20:31)
[2020-07-05] MEDS: PANTOPRAZOLE 40 MG TABLET.DR. PO SCH (05:49)
[2020-07-05] MEDS: DOCUSATE SODIUM 100 MG CAPSULE. PO SCH ×2 (09:09→20:26)
[2020-07-05] MEDS: LACTOBACILLUS RHAMNOSUS GG 1 CAPSULE. PO SCH ×2 (09:09→20:26)
[2020-07-05] MEDS: SENNOSIDES/DOCUSATE 8.6/50MG TABLET. PO SCH ×2 (09:09→20:26)
--- NOTE | 2020-07-05 09:31 | PDOC ---
Infectious Disease Note Subjective Subjective feeling better today ROS ROS no n/v/d/abd pain fever improving Vital Sign Vital Signs Vital Signs Date Time Temp Pulse Resp B/P (MAP) Pulse Ox O2 Delivery O2 Flow Rate FiO2 07/05/20 07:00 99.1 95 18 139/87 (104) 96 Room Air 99.1 Physical Exam PHYSICAL EXAM GENERAL: The patient is propped up in bed, alert, appears tired, eating lunch. Left wrist handcuffed to the bed. HEENT: Pupils equally round, reactive. Normal conjunctivae. Oropharynx pink and moist, no lesions seen. NECK: Supple. LUNGS: Clear to auscultation. No accessory muscle use. HEART: Normal S1, S2 regular. ABDOMEN: Obese, distended, soft, tender. Hypoactive bowel sounds. Surgical sites bandaged. EXTREMITIES: No gross edema or cyanosis. SKIN: Warm to touch. No signs of generalized rash. NEUROLOGIC: Alert and answering questions appropriately. He moves all extremities. Labs Micro GRAM STAIN Final Final GRAM NEGATIVE RODS:RARE GRAM POSITIVE COCCI:RARE SQUAMOUS EPI CELL:NOT APPLICABLE PMN (WBCs):MANY Unless otherwise specified, Testing Performed by: [address] [address] For Inquires, the Physician may contact the Microbiology department at [phone] ANAEROBIC-AEROBIC CULTURE Preliminary Preliminary MIXED AEROBIC AND ANAEROBIC BRYAN INCLUDING: FEW [ESCHERICHIA COLI] on 07/03/20 at 0945 RARE [CITROBACTER KOSERI] on 07/03/20 at 1253 RARE [BACTEROIDES FRAGILIS] on 07/04/20 at 1106 MODERATE [STREPTOCOCCUS CONSTELLATUS] ESCHERICHIA COLI CITROBACTER KOSERI STREPTOCOCCUS CONSTELLATUS BACTEROIDES FRAGILIS ANTIMICROBIAL SUSCEPTIBILITY Preliminary Comment Comment NEG CARA 56 ESCHERICHIA COLI ANTIBIOTIC RESULT INTERPRETATION AMPICILLIN/SULBACTAM <=4/2 S AMIKACIN <=16 S AMPICILLIN <=8 S AMOXICILLIN/K CLAVULANATE <=8/4 S AZTREONAM <=4 S CEFTRIAXONE <=1 S CEFTAZIDIME <=1 S CEFOTAXIME <=2 S CEFOXITIN <=8 S RUN DATE: 07/04/20 [facility] *LIVE* PAGE 2 RUN TIME: 1113 Specimen Inquiry SPEC: [id number] PATIENT: MADELAINE VALLEJO [id number] (Continued) Procedure Result CONTINUED ON NEXT PAGE RUN DATE: 07/04/20 [facility] *LIVE* PAGE 3 RUN TIME: 1113 Specimen Inquiry SPEC: [id number] PATIENT: MADELAINE VALLEJO [id number] (Continued) -- Procedure Result ANTIMICROBIAL SUSCEPTIBILITY Preliminary (continued) CEFAZOLIN <=2 S CIPROFLOXACIN >2 R CEFEPIME <=2 S CEFUROXIME <=4 S CEFTAZIDIME/AVIBACTAM <=4 S ERTAPENEM <=0.5 S GENTAMICIN <=2 S LEVOFLOXACIN >4 R MEROPENEM <=1 S PIPERACILLIN/TAZOBACTAM <=8 S TRIMETHOPRIM/SULFAMETHOXAZOLE <=0.5/9.5 S TETRACYCLINE <=4 S TOBRAMYCIN <=2 S NEG CARA 56 CITROBACTER KOSERI ANTIBIOTIC RESULT INTERPRETATION AMPICILLIN/SULBACTAM <=4/2 S AMIKACIN <=16 S AMPICILLIN >16 R AMOXICILLIN/K CLAVULANATE <=8/4 S AZTREONAM <=4 S CEFTRIAXONE <=1 S CEFTAZIDIME <=1 S CEFOTAXIME <=2 S CEFOXITIN <=8 S CEFAZOLIN <=2 S CIPROFLOXACIN <=0.25 S CEFEPIME <=2 S CEFUROXIME <=4 S CEFTAZIDIME/AVIBACTAM <=4 S ERTAPENEM <=0.5 S GENTAMICIN <=2 S LEVOFLOXACIN <=0.5 S MEROPENEM <=1 S PIPERACILLIN/TAZOBACTAM <=8 S TRIMETHOPRIM/SULFAMETHOXAZOLE <=0.5/9.5 S TETRACYCLINE <=4 S TOBRAMYCIN <=2 S Unless otherwise specified, Testing Performed by: [address] [address] For Inquires, the Physician may contact the Microbiology department at [phone] Objective Assessment IMPRESSION: 1. Acute appendicitis with perforation, status post laparoscopic appendectomy 07/01/2020. 2. Fever. 3. Leukocytosis. 4. Lactic acidosis. 5. Gastroesophageal reflux disease. 6. Dyslipidemia. 7. prisoner. Plan Plan of Care meropenem ct abd noted, may need ct drainage Dose steroids pre-op f/u [facility] from [facility] from 07/01, so far are negative. Monitor WBC trend and temp D/w nursing AYANNA SCHMIDT MD Jul 05, 2020 09:31
[2020-07-05 11:41] LABS: PROTHROMBIN TIME PATIENT 14.6 SEC (11.7-14.0)
--- NOTE | 2020-07-05 13:03 | PDOC ---
SURGICAL PROGRESS NOTE DATE: 07/05/20 TIME: 13:01 Subjective Patient feeling much better today less pain Vital Signs Vital Signs Date Time Temp Pulse Resp B/P (MAP) Pulse Ox O2 Delivery O2 Flow Rate FiO2 07/05/20 11:00 99.4 98 18 125/91 (102) 97 Room Air 99.4 I&O Intake and Output 07/05/20 07:00 Intake Total 400 ml Balance 400 ml IV Total 400 ml # Voids 2 PATIENT HAS A KERR: No General: Alert, Oriented X3, Cooperative, mild distress Abdomen: Normal bowel sounds, Soft, Other (Tender to palpation right lower quadrant less than yesterday) Labs Laboratory Tests Test 07/05/20 10:55 Prothrombin Time 14.6 SEC (11.7-14.0) Prothromb Time International Ratio 1.2 (0.8-1.1) Laboratory Tests Test 07/05/20 10:55 Prothrombin Time 14.6 SEC (11.7-14.0) Prothromb Time International Ratio 1.2 (0.8-1.1) Assessment/Plan Status post laparoscopic appendectomy for perforated appendix. Temperature 99 improving from yesterday Overall clinically improved. Continue IV antibiotics. Asked interventional radiology to evaluate small abdominal fluid collection Justicifation of Admission Dx: Justifications for Admission: Justification of Admission Dx: Yes Sepsis: Hemodynamic Instability JESSICA MTZ MD Jul 05, 2020 13:03
--- NOTE | 2020-07-05 13:28 | PDOC ---
[facility] PROGRESS NOTE Date of Service DOS: DATE: 07/05/20 TIME: 13:26 Chief Complaint Chief Complaint Acute appendicitis with concern for microperforation and now small 5 cm abcess History of GERD History of dyslipidemia Leukocytosis secondary to the above Elevated lactic acid secondary to acute infectious process SEPSIS cont the Zosyn, Pain management Blood cultures Surgical consult POD # 2 ID CONSULT following Justifications for Admission Justifications for Admission Other Justification CT scan showed signs consistent with acute appendicitis with perforation History of Present Illness History of Present Illness IR today to eval to place drain, small 5cm fluid, poss air, is NPO for eval., CT scan abd, fluid cont the Merrem his appetite was better today, now NPO Patient is a 44-year-old gentleman with past medical history of GERD, dyslipidemia who was in his usual state of health until the morning prior to his admission when he woke up from his sleep with right lower quadrant abdominal pain. The patient takes Ultram on a regular basis and self medicated. He is currently incarcerated in the [facility]. He was given symptomatic relief of his symptoms that also included nausea and vomiting. The patient has history of GERD his pain improved with the Ultram nevertheless it recurred later in the day and this morning he experienced fever and chills reason why he was transported to the local ER for further evaluation and treatment. The patient had a CT of the abdomen which revealed acute appendicitis and had an elevated white blood cell count he was tachycardic and having an acute febrile illness of 101 Fahrenheit. technical marketing consultant was contacted and he requested transfer to our institution for definitive treatment. At the time my evaluation the patient is in acute distress due to the abdominal discomfort right lower quadrant no peritoneal signs patient is uncomfortable diaphoretic and tachycardic certainly in acute distress. Nontoxic looking and seems to be perfusing. As per report per ER physician lactic acid was 2.7 reason why we had requested an ICU bed initially. oracle application consultant is in route at this point to take the patient to the OR for definitive definitive treatment. Laboratory data from outside facility has been reviewed and also imaging study results as well. He has received cephalosporin and Flagyl in the outside facility and will continue with Zosyn perioperatively. The patient describes the pain as a sharp sensation 10 out of 10 intensity with no radiation to the groin no radiation to the back no urinary symptoms were reported nausea and vomiting of gastric content was reported by the patient no other associated symptoms. The plan of care explained in detail and all of his concerns were addressed to the best of my abilities Past Medical History Cardiovascular: Hyperlipidemia GI: GERD Past Surgical History Past Surgical History: No pertinent history Family History Family History: No Significant Social History Smoke: No ALCOHOL: none Drugs: None 07-02 pain fair, ID CONSULTED, BLOOD CULT PENDING, CONT IV ZOSYN D/W RN Vitals/I&O Vitals/I&O: Vital Signs Date Time Temp Pulse Resp B/P (MAP) Pulse Ox O2 Delivery O2 Flow Rate FiO2 07/05/20 11:00 99.4 98 18 125/91 (102) 97 Room Air 99.4 I & O 07/04/20 07/04/20 07/05/20 15:00 23:00 07:00 Intake Total 400 ml Balance 400 ml Physical Exam Physical Exam: GENERAL: The patient is propped up in bed, alert, appears tired, eating lunch. Left wrist handcuffed to the bed. HEENT: Pupils equally round, reactive. Normal conjunctivae. Oropharynx pink and moist, no lesions seen. NECK: Supple. LUNGS: Clear to auscultation. No accessory muscle use. HEART: Normal S1, S2 regular. ABDOMEN: Obese, distended, soft, tender. Hypoactive bowel sounds. Surgical sites bandaged. EXTREMITIES: No gross edema or cyanosis. SKIN: Warm to touch. No signs of generalized rash. NEUROLOGIC: Alert and answering questions appropriately. He moves all extremities. General: Alert, Oriented X3, Cooperative, mild distress Heart: Regular rate, Normal S1, Normal S2, Other (Tachycardic) Lungs: Clear Abdomen: Normal bowel sounds, Soft, Other (Tender to palpation right lower quadrant less than yesterday) Extremities: No clubbing, No cyanosis, No edema Skin: No significant lesion Labs Labs: Laboratory Tests Test 07/05/20 10:55 Prothrombin Time 14.6 SEC (11.7-14.0) Prothromb Time International Ratio 1.2 (0.8-1.1) Comment Review of Relevant I have reviewed the following items tawana (where applicable) has been applied. Justifications for Admission Other Justification AALIYAH KIRKPATRICK MD Jul 05, 2020 13:28
[2020-07-05] MEDS ORDERED: LIDOCAINE WITH 8.4% SOD BICARB 3 ML DISP.SYRIN. ONE (13:41)
[2020-07-05] MEDS ORDERED: MIDAZOLAM HCL/PF 2 MG/2 ML VIAL. ONE (13:41)
[2020-07-05] MEDS ORDERED: fentaNYL PF VIAL 100 MCG/2 ML VIAL ONE (13:41)
[2020-07-05] MEDS: POLYETHYLENE GLYCOL 3350 17 GM PACKET. PO SCH (13:51)
--- NOTE | 2020-07-05 14:36 | PDOC ---
MODERATE SEDATION ASSESSMENT RISKS/ALTERNATIVES Risks/Alternatives Risks and alternatives of this type of sedation and procedure discussed with: RISK/ALTERNATIVES: Patient H & P ON CHART H & P H & P on chart and reviewed for co-morbid conditions and appropriate labs. H&P ON CHART: Yes STATUS PREG STATUS ASSESSED: Yes MEDS/ALLERGIES REVIEWED Meds/Allergies Reviewed Medications and Allergies including time and route of recently administered narcotics and sedatives. MEDS/ALLERGIES REVIEWED: Yes ASA RATING ASA RATING: II AIRWAY ASSESSMENT Airway Assessment Airway patency, oral function limitations, presence of caps, crowns, dentures, partials, and ability to extend neck assessed. AIRWAY ASSESSMENT: Yes MALLAMPATI SCORE MALLAMPATI SCORE: II PRE-SEDATION ASSESSMENT PRE-SEDATION ASSESSMENT: Yes INGRIS MEDINA MD Jul 05, 2020 14:36
--- NOTE | 2020-07-05 14:38 | PDOC ---
BRIEF OPERATIVE NOTE Pre-Op Diagnosis RLQ abscess Post-Op Diagnosis same Procedure Performed CT drain Surgeon Singh SUTTON minimal Anesthesia Type: Conscious Sedation Specimens Obtained 8cc turbid bloody fluid Findings 12F drain placed in small RLQ abscess Complications no immediate INGRIS MEDINA MD Jul 05, 2020 14:37
[2020-07-05] MEDS ORDERED: MIDAZOLAM HCL/PF 2 MG/2 ML VIAL. IV ONE (14:45)
[2020-07-05] MEDS ORDERED: fentaNYL PF VIAL 100 MCG/2 ML VIAL IV ONE (14:45)
[2020-07-05] MEDS ORDERED: LIDOCAINE WITH 8.4% SOD BICARB 3 ML DISP.SYRIN. IJ ONE (14:45)
--- NOTE | 2020-07-05 14:56 | RAD ---
Procedure: CT-guided abdominal drain placement Clinical Indication: Adult male status post appendectomy with right lower quadrant abscess Sedation: Conscious sedation was administered with a total intraprocedural [id number] time of 21 minutes. The patient was monitored by a qualified independent observer throughout the time of sedation. Please refer to the medical record for exact doses of medications utilized to achieve moderate sedation. Sterility: All elements of maximal sterile barrier technique including the use of a cap, mask, sterile gown, sterile gloves, large sterile sheet, appropriate hand hygiene, and 2% chlorhexidine for cutaneous antisepsis (or acceptable alternative antiseptic per current guidelines) were followed for this procedure. Consent: The procedure was performed in its entirety using appropriate elements of sterile technique. Technique and Findings: Following informed consent, the patient was prepped and draped in usual sterile fashion. 1% lidocaine was used to achieve local anesthesia. A small dermatotomy was made. Under periodic CT surveillance, a 17-gauge needle was advanced into the fluid collection and turbid bloody fluid was aspirated. The needle was then exchanged over wire for a 12 Bulgarian pigtail drainage catheter which was sutured to the skin and placed to bulb suction. An 8 cc specimen was sent for microbiologic analysis. Complications: No immediate Impression: 1. CT-guided right lower quadrant abdominal drain placement as described. PQRS Compliance Statement: One or more of the following individualized dose reduction techniques were utilized for this examination: 1. Automated exposure control 2. Adjustment of the mA and/or kV according to patient size 3. Use of iterative reconstruction technique
[2020-07-05] MEDS: HYDROmorphone 2 MG/ML VIAL IV PRN (17:31)
[2020-07-05] MEDS: ENOXAPARIN 40 MG/0.4 ML SYRINGE. SQ SCH (20:32)
[2020-07-06] MEDS: oxyCODONE/APAP 5/325 1 TAB TABLET PO PRN ×3 (02:16→18:04)
[2020-07-06 03:00] VITALS: BP 121/77
[2020-07-06] MEDS: HYDROmorphone 2 MG/ML VIAL IV PRN ×2 (03:19→08:51)
--- NOTE | 2020-07-06 03:24 | NUR ---
Patient instructed on deep breathing exercises, IS use, and encouraged to ambulate with gas pains. PO pain medication administered and on reassessment patient screaming and moaning in room d/t pain. During administration of IV PRN pain medication pt became upset with this RN when pt was advised to take slow deep breaths; yelling, "...just give me the medicine". Medication administered and patient remains in bed with 2 guards at bedside.
[2020-07-06] MEDS: MAG HYDROX/ALUMINUM HYD/SIMETH 30 ML ORAL.SUSP PO PRN ×2 (03:54→20:33)
[2020-07-06] MEDS: MEROPENEM 500 MG in IV NORMAL SALINE 50ML 50 ML IV SCH ×4 (05:52→23:40)
[2020-07-06] MEDS: PANTOPRAZOLE 40 MG TABLET.DR. PO SCH (05:52)
[2020-07-06 07:00] VITALS: BP 145/93
[2020-07-06] MEDS: SENNOSIDES/DOCUSATE 8.6/50MG TABLET. PO SCH ×2 (08:59→20:23)
[2020-07-06] MEDS: LACTOBACILLUS RHAMNOSUS GG 1 CAPSULE. PO SCH ×2 (08:59→20:23)
[2020-07-06] MEDS: DOCUSATE SODIUM 100 MG CAPSULE. PO SCH ×2 (08:59→20:23)
[2020-07-06] MEDS: POLYETHYLENE GLYCOL 3350 17 GM PACKET. PO SCH (09:00)
[2020-07-06] MEDS ORDERED: KETOROLAC 30 MG/ML VIAL. IVP ONE ×2 (09:30→14:45)
[2020-07-06] MEDS: MORPHINE ER 15 MG TABLET.ER PO SCH ×2 (09:30→20:50)
--- NOTE | 2020-07-06 10:35 | PDOC ---
SURGICAL PROGRESS NOTE DATE: 07/06/20 TIME: 10:30 Subjective sore, gas pains having stools low appetite Vital Signs Vital Signs Date Time Temp Pulse Resp B/P (MAP) Pulse Ox O2 Delivery O2 Flow Rate FiO2 07/06/20 10:02 Room Air 07/06/20 07:00 98.4 94 16 145/93 (110) 98 98.4 07/05/20 14:39 2.0 I&O Intake and Output 07/06/20 07:00 Intake Total 800 ml Output Total 25 ml Balance 775 ml Intake Oral 450 ml IV Total 350 ml Drainage Total 25 ml # Voids 2 General: Alert, Oriented X3, Cooperative Abdomen: Soft, Other (drain in place) Labs Laboratory Tests Test 07/05/20 10:55 Prothrombin Time 14.6 SEC (11.7-14.0) Prothromb Time International Ratio 1.2 (0.8-1.1) Laboratory Tests Test 07/05/20 10:55 Prothrombin Time 14.6 SEC (11.7-14.0) Prothromb Time International Ratio 1.2 (0.8-1.1) Problem List continue drain and abx Justicifation of Admission Dx: Justifications for Admission: Justification of Admission Dx: Yes Sepsis: Hemodynamic Instability JAMESON PELAYO ENGLISH PROFESSOR Jul 06, 2020 10:35
--- NOTE | 2020-07-06 10:41 | PDOC ---
Infectious Disease Note Subjective Subjective pt had drain placed, is having with with movement says KAYLA GARZA no n/v/d/sob Vital Sign Vital Signs Vital Signs Date Time Temp Pulse Resp B/P (MAP) Pulse Ox O2 Delivery O2 Flow Rate FiO2 07/06/20 10:02 Room Air 07/06/20 07:00 98.4 94 16 145/93 (110) 98 98.4 07/05/20 14:39 2.0 Physical Exam PHYSICAL EXAM GENERAL: The patient is propped up in bed, alert, appears tired, eating lunch. Left wrist handcuffed to the bed. HEENT: Pupils equally round, reactive. Normal conjunctivae. Oropharynx pink and moist, no lesions seen. NECK: Supple. LUNGS: Clear to auscultation. No accessory muscle use. HEART: Normal S1, S2 regular. ABDOMEN: Obese, distended, soft, tender. Hypoactive bowel sounds. Surgical sites bandaged. EXTREMITIES: No gross edema or cyanosis. SKIN: Warm to touch. No signs of generalized rash. NEUROLOGIC: Alert and answering questions appropriately. He moves all extremities. Labs Lab Laboratory Tests Test 07/05/20 10:55 Prothrombin Time 14.6 SEC (11.7-14.0) Prothromb Time International Ratio 1.2 (0.8-1.1) Micro GRAM STAIN Final Final GRAM NEGATIVE RODS:RARE GRAM POSITIVE COCCI:RARE SQUAMOUS EPI CELL:NOT APPLICABLE PMN (WBCs):MANY Unless otherwise specified, Testing Performed by: [address] [address] For Inquires, the Physician may contact the Microbiology department at [phone] ANAEROBIC-AEROBIC CULTURE Preliminary Preliminary MIXED AEROBIC AND ANAEROBIC BRYAN INCLUDING: FEW [ESCHERICHIA COLI] on 07/03/20 at 0945 RARE [CITROBACTER KOSERI] on 07/03/20 at 1253 RARE [BACTEROIDES FRAGILIS] on 07/04/20 at 1106 MODERATE [STREPTOCOCCUS CONSTELLATUS] ESCHERICHIA COLI CITROBACTER KOSERI STREPTOCOCCUS CONSTELLATUS BACTEROIDES FRAGILIS ANTIMICROBIAL SUSCEPTIBILITY Preliminary Comment Comment NEG CARA 56 ESCHERICHIA COLI ANTIBIOTIC RESULT INTERPRETATION AMPICILLIN/SULBACTAM <=4/2 S AMIKACIN <=16 S AMPICILLIN <=8 S AMOXICILLIN/K CLAVULANATE <=8/4 S AZTREONAM <=4 S CEFTRIAXONE <=1 S CEFTAZIDIME <=1 S CEFOTAXIME <=2 S CEFOXITIN <=8 S RUN DATE: 07/04/20 [facility] *LIVE* PAGE 2 RUN TIME: 1113 Specimen Inquiry SPEC: [id number] PATIENT: MADELAINE VALLEJO [id number] (Co ntinued) Procedure Result CONTINUED ON NEXT PAGE RUN DATE: 07/04/20 [facility] *LIVE* PAGE 3 RUN TIME: 1113 Specimen Inquiry SPEC: [id number] PATIENT: MADELAINE VALLEJO [id number] (Continued) -- Procedure Result ANTIMICROBIAL SUSCEPTIBILITY Preliminary (continued) CEFAZOLIN <=2 S CIPROFLOXACIN >2 R CEFEPIME <=2 S CEFUROXIME <=4 S CEFTAZIDIME/AVIBACTAM <=4 S ERTAPENEM <=0.5 S GENTAMICIN <=2 S LEVOFLOXACIN >4 R MEROPENEM <=1 S PIPERACILLIN/TAZOBACTAM <=8 S TRIMETHOPRIM/SULFAMETHOXAZOLE <=0.5/9.5 S TETRACYCLINE <=4 S TOBRAMYCIN <=2 S NEG CARA 56 CITROBACTER KOSERI ANTIBIOTIC RESULT INTERPRETATION AMPICILLIN/SULBACTAM <=4/2 S AMIKACIN <=16 S AMPICILLIN >16 R AMOXICILLIN/K CLAVULANATE <=8/4 S AZTREONAM <=4 S CEFTRIAXONE <=1 S CEFTAZIDIME <=1 S CEFOTAXIME <=2 S CEFOXITIN <=8 S CEFAZOLIN <=2 S CIPROFLOXACIN <=0.25 S CEFEPIME <=2 S CEFUROXIME <=4 S CEFTAZIDIME/AVIBACTAM <=4 S ERTAPENEM <=0.5 S GENTAMICIN <=2 S LEVOFLOXACIN <=0.5 S MEROPENEM <=1 S PIPERACILLIN/TAZOBACTAM <=8 S TRIMETHOPRIM/SULFAMETHOXAZOLE <=0.5/9.5 S TETRACYCLINE <=4 S TOBRAMYCIN <=2 S Unless otherwise specified, Testing Performed by: [address] [address] For Inquires, the Physician may contact the Microbiology department at [phone] Objective Assessment IMPRESSION: 1. Acute appendicitis with perforation, status post laparoscopic appendectomy 07/01/2020. 2. Fever. 3. Leukocytosis. 4. Lactic acidosis. 5. Gastroesophageal reflux disease. 6. Dyslipidemia. 7. prisoner. Plan Plan of Care meropenem ct abd noted, ct drainage done f/u BC from [facility] from 07/01, so far are negative. Monitor WBC trend and temp D/w nursing AYANNA SCHMIDT MD Jul 06, 2020 10:41
--- NOTE | 2020-07-06 10:44 | NUR ---
flushed ARIELLA drain with 10ml of saline solution at 0830
[2020-07-06 11:00] VITALS: BP 138/90
--- NOTE | 2020-07-06 12:47 | PDOC ---
[facility] PROGRESS NOTE Date of Service DOS: DATE: 07/06/20 TIME: 12:49 Chief Complaint Chief Complaint Acute appendicitis with concern for microperforation and now small 5 cm abcess History of GERD History of dyslipidemia Leukocytosis secondary to the above Elevated lactic acid secondary to acute infectious process SEPSIS cont the Zosyn, Pain management Blood cultures Surgical consult POD # 2 ID CONSULT following Justifications for Admission Justifications for Admission Other Justification CT scan showed signs consistent with acute appendicitis with perforation History of Present Illness History of Present Illness IR has placed drain, fluid is looking clear in drain, pain was severe overnight, better this AM, Toradol given cont the Merrem his appetite was better today, now NPO Patient is a 44-year-old gentleman with past medical history of GERD, dyslipidemia who was in his usual state of health until the morning prior to his admission when he woke up from his sleep with right lower quadrant abdominal pain. The patient takes Ultram on a regular basis and self medicated. He is currently incarcerated in the senior care. He was given symptomatic relief of his symptoms that also included nausea and vomiting. The patient has history of GERD his pain improved with the Ultram nevertheless it recurred later in the day and this morning he experienced fever and chills reason why he was transported to the local ER for further evaluation and treatment. The patient had a CT of the abdomen which revealed acute appendicitis and had an elevated white blood cell count he was tachycardic and having an acute febrile illness of 101 Fahrenheit. websphere consultant was contacted and he requested transfer to our [facility] for definitive treatment. At the time my evaluation the patient is in acute distress due to the abdominal discomfort right lower quadrant no peritoneal signs patient is uncomfortable diaphoretic and tachycardic certainly in acute distress. Nontoxic looking and seems to be perfusing. As per report per ER physician lactic acid was 2.7 reason why we had requested an ICU bed initially. lending consultant is in route at this point to take the patient to the OR for definitive definitive treatment. Laboratory data from outside facility has been reviewed and also imaging study results as well. He has received cephalosporin and Flagyl in the outside facility and will continue with Zosyn perioperatively. The patient describes the pain as a sharp sensation 10 out of 10 intensity with no radiation to the groin no radiation to the back no urinary symptoms were reported nausea and vomiting of gastric content was reported by the patient no other associated symptoms. The plan of care explained in detail and all of his concerns were addressed to the best of my abilities Past Medical History Cardiovascular: Hyperlipidemia GI: GERD Past Surgical History Past Surgical History: No pertinent history Family History Family History: No Significant Social History Smoke: No ALCOHOL: none Drugs: None 3- pain fair, ID CONSULTED, BLOOD CULT PENDING, CONT IV ZOSYN D/W RN Vitals/I&O Vitals/I&O: Vital Signs Date Time Temp Pulse Resp B/P (MAP) Pulse Ox O2 Delivery O2 Flow Rate FiO2 07/06/20 11:00 98.7 94 18 138/90 (106) 96 Room Air 98.7 07/05/20 14:39 2.0 I & O 07/05/20 07/05/20 07/06/20 14:57 22:57 06:57 Intake Total 800 ml Output Total 25 ml Balance 775 ml Physical Exam Physical Exam: GENERAL: The patient is propped up in bed, alert, appears tired, eating lunch. Left wrist handcuffed to the bed. HEENT: Pupils equally round, reactive. Normal conjunctivae. Oropharynx pink and moist, no lesions seen. NECK: Supple. LUNGS: Clear to auscultation. No accessory muscle use. HEART: Normal S1, S2 regular. ABDOMEN: Obese, distended, soft, tender. Hypoactive bowel sounds. Surgical sites bandaged. EXTREMITIES: No gross edema or cyanosis. SKIN: Warm to touch. No signs of generalized rash. NEUROLOGIC: Alert and answering questions appropriately. He moves all extremities. General: Alert, Oriented X3, Cooperative Heart: Regular rate, Normal S1, Normal S2, Other (Tachycardic) Lungs: Clear Abdomen: Soft, Other (drain in place) Extremities: No clubbing, No cyanosis, No edema Skin: No significant lesion Comment Review of Relevant I have reviewed the following items tawana (where applicable) has been applied. Medications: Current Medications Medications (Trade) Dose Ordered Sig/Kaden Route PRN Reason Start Time Stop Time Status Last Admin Dose Admin Lidocaine HCl (Buffered Lidocaine 1%) 12 ml 1X ONCE IJ 07/05/20 14:45 07/05/20 14:46 DC 07/05/20 14:34 Midazolam HCl (Versed) 1 mg 1X ONCE IV 07/05/20 14:45 07/05/20 14:46 DC 07/05/20 14:34 Fentanyl Citrate (Fentanyl 2ml Vial) 100 mcg 1X ONCE IV 07/05/20 14:45 07/05/20 14:46 DC 07/05/20 14:20 Justifications for Admission Other Justification AALIYAH KIRKPATRICK MD Jul 06, 2020 12:47
[2020-07-06 15:00] VITALS: BP 136/80
[2020-07-06 19:00] VITALS: BP 156/93
[2020-07-06] MEDS: ENOXAPARIN 40 MG/0.4 ML SYRINGE. SQ SCH (20:24)
[2020-07-06 23:00] VITALS: BP 124/70
[2020-07-07 03:00] VITALS: BP 137/87
[2020-07-07] MEDS: oxyCODONE/APAP 5/325 1 TAB TABLET PO PRN ×4 (03:56→18:30)
[2020-07-07 04:53] LABS: BASO % 0 % (0-3); EOS # 0.3 x10^3/uL (0.0-0.7); EOS % 3 % (0-3); HEMATOCRIT 36.1 % (39.0-53.0); HEMOGLOBIN 12.2 g/dL (13.0-17.5); LYMPH # 1.6 x10^3/uL (1.0-4.8); LYMPH % 14 % (24-48); MEAN CORPUSCULAR HEMOGLOBIN 29 pg (25-35); MEAN CORPUSCULAR HGB CONC 34 g/dL (31-37); MEAN CORPUSCULAR VOLUME 85 fL (79-100); MONO # 1.2 x10^3/uL (0.0-1.1); MONO % 10 % (0-9); NEUT # 8.3 x10^3/uL (1.8-7.7); NEUT % 73 % (31-73); PLATELET COUNT 226 x10^3/uL (140-400); RED BLOOD COUNT 4.26 x10^6/uL (4.30-5.70); RED CELL DISTRIBUTION WIDTH 13.6 % (11.5-14.5); WHITE BLOOD COUNT 11.4 x10^3/uL (4.0-11.0)
[2020-07-07 05:18] LABS: ALBUMIN 2.4 g/dL (3.4-5.0); ALBUMIN/GLOBULIN RATIO 0.6 (1.0-1.7); CALCIUM 8.2 mg/dL (8.5-10.1); CREATININE 0.9 mg/dL (0.7-1.3); GFR 92.5; POTASSIUM 3.3 mmol/L (3.5-5.1); TOTAL BILIRUBIN 0.3 mg/dL (0.2-1.0); TOTAL PROTEIN 6.1 g/dL (6.4-8.2)
[2020-07-07] MEDS: MEROPENEM 500 MG in IV NORMAL SALINE 50ML 50 ML IV SCH ×3 (05:36→17:43)
[2020-07-07] MEDS: PANTOPRAZOLE 40 MG TABLET.DR. PO SCH (05:36)
[2020-07-07 07:00] VITALS: BP 142/95
--- NOTE | 2020-07-07 08:04 | PDOC ---
SURGICAL PROGRESS NOTE DATE: 07/07/20 TIME: 08:03 Subjective Patient states he is feeling well tolerating regular diet Vital Signs Vital Signs Date Time Temp Pulse Resp B/P (MAP) Pulse Ox O2 Delivery O2 Flow Rate FiO2 07/07/20 07:00 98.5 90 18 142/95 (111) 97 Room Air 98.5 I&O Intake and Output 07/07/20 07:00 Intake Total 400 ml Output Total 50 ml Balance 350 ml IV Total 400 ml Drainage Total 50 ml # Voids 2 PATIENT HAS A KERR: No General: Alert, Oriented X3, Cooperative, No acute distress Abdomen: Normal bowel sounds, Soft, Other (Mild tenderness around drain site drain intact with serosanguineous output) Labs Laboratory Tests Test 07/05/20 10:55 07/07/20 03:30 Prothrombin Time 14.6 SEC (11.7-14.0) Prothromb Time International Ratio 1.2 (0.8-1.1) White Blood Count 11.4 x10^3/uL (4.0-11.0) Red Blood Count 4.26 x10^6/uL (4.30-5.70) Hemoglobin 12.2 g/dL (13.0-17.5) Hematocrit 36.1 % (39.0-53.0) Mean Corpuscular Volume 85 fL (79-100) Mean Corpuscular Hemoglobin 29 pg (25-35) Mean Corpuscular Hemoglobin Concent 34 g/dL (31-37) Red Cell Distribution Width 13.6 % (11.5-14.5) Platelet Count 226 x10^3/uL (140-400) Neutrophils (%) (Auto) 73 % (31-73) Lymphocytes (%) (Auto) 14 % (24-48) Monocytes (%) (Auto) 10 % (0-9) Eosinophils (%) (Auto) 3 % (0-3) Basophils (%) (Auto) 0 % (0-3) Neutrophils # (Auto) 8.3 x10^3/uL (1.8-7.7) Lymphocytes # (Auto) 1.6 x10^3/uL (1.0-4.8) Monocytes # (Auto) 1.2 x10^3/uL (0.0-1.1) Eosinophils # (Auto) 0.3 x10^3/uL (0.0-0.7) Basophils # (Auto) 0.0 x10^3/uL (0.0-0.2) Sodium Level 142 mmol/L (136-145) Potassium Level 3.3 mmol/L (3.5-5.1) Chloride Level 104 mmol/L (98-107) Carbon Dioxide Level 28 mmol/L (21-32) Anion Gap 10 (6-14) Blood Urea Nitrogen 11 mg/dL (8-26) Creatinine 0.9 mg/dL (0.7-1.3) Estimated GFR (Cockcroft-Gault) 92.5 BUN/Creatinine Ratio 12 (6-20) Glucose Level 107 mg/dL (70-99) Calcium Level 8.2 mg/dL (8.5-10.1) Total Bilirubin 0.3 mg/dL (0.2-1.0) Aspartate Amino Transf (AST/SGOT) 45 U/L (15-37) Alanine Aminotransferase (ALT/SGPT) 71 U/L (16-63) Alkaline Phosphatase 61 U/L (46-116) Total Protein 6.1 g/dL (6.4-8.2) Albumin 2.4 g/dL (3.4-5.0) Albumin/Globulin Ratio 0.6 (1.0-1.7) Laboratory Tests Test 07/07/20 03:30 White Blood Count 11.4 x10^3/uL (4.0-11.0) Red Blood Count 4.26 x10^6/uL (4.30-5.70) Hemoglobin 12.2 g/dL (13.0-17.5) Hematocrit 36.1 % (39.0-53.0) Mean Corpuscular Volume 85 fL (79-100) Mean Corpuscular Hemoglobin 29 pg (25-35) Mean Corpuscular Hemoglobin Concent 34 g/dL (31-37) Red Cell Distribution Width 13.6 % (11.5-14.5) Platelet Count 226 x10^3/uL (140-400) Neutrophils (%) (Auto) 73 % (31-73) Lymphocytes (%) (Auto) 14 % (24-48) Monocytes (%) (Auto) 10 % (0-9) Eosinophils (%) (Auto) 3 % (0-3) Basophils (%) (Auto) 0 % (0-3) Neutrophils # (Auto) 8.3 x10^3/uL (1.8-7.7) Lymphocytes # (Auto) 1.6 x10^3/uL (1.0-4.8) Monocytes # (Auto) 1.2 x10^3/uL (0.0-1.1) Eosinophils # (Auto) 0.3 x10^3/uL (0.0-0.7) Basophils # (Auto) 0.0 x10^3/uL (0.0-0.2) Sodium Level 142 mmol/L (136-145) Potassium Level 3.3 mmol/L (3.5-5.1) Chloride Level 104 mmol/L (98-107) Carbon Dioxide Level 28 mmol/L (21-32) Anion Gap 10 (6-14) Blood Urea Nitrogen 11 mg/dL (8-26) Creatinine 0.9 mg/dL (0.7-1.3) Estimated GFR (Cockcroft-Gault) 92.5 BUN/Creatinine Ratio 12 (6-20) Glucose Level 107 mg/dL (70-99) Calcium Level 8.2 mg/dL (8.5-10.1) Total Bilirubin 0.3 mg/dL (0.2-1.0) Aspartate Amino Transf (AST/SGOT) 45 U/L (15-37) Alanine Aminotransferase (ALT/SGPT) 71 U/L (16-63) Alkaline Phosphatase 61 U/L (46-116) Total Protein 6.1 g/dL (6.4-8.2) Albumin 2.4 g/dL (3.4-5.0) Albumin/Globulin Ratio 0.6 (1.0-1.7) Assessment/Plan Status post laparoscopic appendectomy, post IR drain placement afebrile white count 11.4 Continue IV antibiotics per ID Surgically stable Justicifation of Admission Dx: Justifications for Admission: Justification of Admission Dx: Yes Sepsis: Hemodynamic Instability JESSICA MTZ MD Jul 07, 2020 08:04
[2020-07-07] MEDS: SENNOSIDES/DOCUSATE 8.6/50MG TABLET. PO SCH ×2 (08:22→21:11)
[2020-07-07] MEDS: MAG HYDROX/ALUMINUM HYD/SIMETH 30 ML ORAL.SUSP PO PRN (08:22)
[2020-07-07] MEDS: LACTOBACILLUS RHAMNOSUS GG 1 CAPSULE. PO SCH ×2 (08:22→21:11)
[2020-07-07] MEDS: DOCUSATE SODIUM 100 MG CAPSULE. PO SCH ×2 (08:22→21:11)
[2020-07-07] MEDS: MORPHINE ER 15 MG TABLET.ER PO SCH ×2 (08:39→21:23)
[2020-07-07] MEDS: POLYETHYLENE GLYCOL 3350 17 GM PACKET. PO SCH (08:39)
--- NOTE | 2020-07-07 10:25 | PDOC ---
Infectious Disease Note Subjective Subjective Patient says he is feeling much better today ROS ROS No nausea vomiting diarrhea chest pain shortness of breath or abdominal pain Vital Sign Vital Signs Vital Signs Date Time Temp Pulse Resp B/P (MAP) Pulse Ox O2 Delivery O2 Flow Rate FiO2 07/07/20 07:00 98.5 90 18 142/95 (111) 97 Room Air 98.5 Physical Exam PHYSICAL EXAM GENERAL: The patient is propped up in bed, alert, comfortable Left wrist handcuffed to the bed. HEENT: Pupils equally round, reactive. Normal conjunctivae. Oropharynx pink and moist, no lesions seen. NECK: Supple. LUNGS: Clear to auscultation. No accessory muscle use. HEART: Normal S1, S2 regular. ABDOMEN: Obese, distended, soft, tender. Hypoactive bowel sounds. Surgical sites bandaged. EXTREMITIES: No gross edema or cyanosis. SKIN: Warm to touch. No signs of generalized rash. NEUROLOGIC: Alert and answering questions appropriately. He moves all extremities. Labs Lab Laboratory Tests Test 07/07/20 03:30 White Blood Count 11.4 x10^3/uL (4.0-11.0) Red Blood Count 4.26 x10^6/uL (4.30-5.70) Hemoglobin 12.2 g/dL (13.0-17.5) Hematocrit 36.1 % (39.0-53.0) Mean Corpuscular Volume 85 fL (79-100) Mean Corpuscular Hemoglobin 29 pg (25-35) Mean Corpuscular Hemoglobin Concent 34 g/dL (31-37) Red Cell Distribution Width 13.6 % (11.5-14.5) Platelet Count 226 x10^3/uL (140-400) Neutrophils (%) (Auto) 73 % (31-73) Lymphocytes (%) (Auto) 14 % (24-48) Monocytes (%) (Auto) 10 % (0-9) Eosinophils (%) (Auto) 3 % (0-3) Basophils (%) (Auto) 0 % (0-3) Neutrophils # (Auto) 8.3 x10^3/uL (1.8-7.7) Lymphocytes # (Auto) 1.6 x10^3/uL (1.0-4.8) Monocytes # (Auto) 1.2 x10^3/uL (0.0-1.1) Eosinophils # (Auto) 0.3 x10^3/uL (0.0-0.7) Basophils # (Auto) 0.0 x10^3/uL (0.0-0.2) Sodium Level 142 mmol/L (136-145) Potassium Level 3.3 mmol/L (3.5-5.1) Chloride Level 104 mmol/L (98-107) Carbon Dioxide Level 28 mmol/L (21-32) Anion Gap 10 (6-14) Blood Urea Nitrogen 11 mg/dL (8-26) Creatinine 0.9 mg/dL (0.7-1.3) Estimated GFR (Cockcroft-Gault) 92.5 BUN/Creatinine Ratio 12 (6-20) Glucose Level 107 mg/dL (70-99) Calcium Level 8.2 mg/dL (8.5-10.1) Total Bilirubin 0.3 mg/dL (0.2-1.0) Aspartate Amino Transf (AST/SGOT) 45 U/L (15-37) Alanine Aminotransferase (ALT/SGPT) 71 U/L (16-63) Alkaline Phosphatase 61 U/L (46-116) Total Protein 6.1 g/dL (6.4-8.2) Albumin 2.4 g/dL (3.4-5.0) Albumin/Globulin Ratio 0.6 (1.0-1.7) Micro GRAM STAIN Final Final GRAM NEGATIVE RODS:RARE GRAM POSITIVE COCCI:RARE SQUAMOUS EPI CELL:NOT APPLICABLE PMN (WBCs):MANY Unless otherwise specified, Testing Performed by: [address] [address] For Inquires, the Physician may contact the Microbiology department at [phone] ANAEROBIC-AEROBIC CULTURE Preliminary Preliminary MIXED AEROBIC AND ANAEROBIC BRYAN INCLUDING: FEW [ESCHERICHIA COLI] on 07/03/20 at 0945 RARE [CITROBACTER KOSERI] on 07/03/20 at 1253 RARE [BACTEROIDES FRAGILIS] on 07/04/20 at 1106 MODERATE [STREPTOCOCCUS CONSTELLATUS] ESCHERICHIA COLI CITROBACTER KOSERI STREPTOCOCCUS CONSTELLATUS BACTEROIDES FRAGILIS ANTIMICROBIAL SUSCEPTIBILITY Preliminary Comment Comment NEG CARA 56 ESCHERICHIA COLI ANTIBIOTIC RESULT INTERPRETATION AMPICILLIN/SULBACTAM <=4/2 S AMIKACIN <=16 S AMPICILLIN <=8 S AMOXICILLIN/K CLAVULANATE <=8/4 S AZTREONAM <=4 S CEFTRIAXONE <=1 S CEFTAZIDIME <=1 S CEFOTAXIME <=2 S CEFOXITIN <=8 S RUN DATE: 07/04/20 [facility] *LIVE* PAGE 2 RUN TIME: 1113 Specimen Inquiry SPEC: [id number] PATIENT: MADELAINE VALLEJO [id number] (Continued) ------- ----- Procedure Result CONTINUED ON NEXT PAGE RUN DATE: 07/04/20 [facility] *LIVE* PAGE 3 RUN TIME: 1113 Specimen Inquiry SPEC: [id number] PATIENT: MADELAINE VALLEJO [id number] (Continued) Procedure Result ANTIMICROBIAL SUSCEPTIBILITY Preliminary (continued) CEFAZOLIN <=2 S CIPROFLOXACIN >2 R CEFEPIME <=2 S CEFUROXIME <=4 S CEFTAZIDIME/AVIBACTAM <=4 S ERTAPENEM <=0.5 S GENTAMICIN <=2 S LEVOFLOXACIN >4 R MEROPENEM <=1 S PIPERACILLIN/TAZOBACTAM <=8 S TRIMETHOPRIM/SULFAMETHOXAZOLE <=0.5/9.5 S TETRACYCLINE <=4 S TOBRAMYCIN <=2 S NEG CARA 56 CITROBACTER KOSERI ANTIBIOTIC RESULT INTERPRETATION AMPICILLIN/SULBACTAM <=4/2 S AMIKACIN <=16 S AMPICILLIN >16 R AMOXICILLIN/K CLAVULANATE <=8/4 S AZTREONAM <=4 S CEFTRIAXONE <=1 S CEFTAZIDIME <=1 S CEFOTAXIME <=2 S CEFOXITIN <=8 S CEFAZOLIN <=2 S CIPROFLOXACIN <=0.25 S CEFEPIME <=2 S CEFUROXIME <=4 S CEFTAZIDIME/AVIBACTAM <=4 S ERTAPENEM <=0.5 S GENTAMICIN <=2 S LEVOFLOXACIN <=0.5 S MEROPENEM <=1 S PIPERACILLIN/TAZOBACTAM <=8 S TRIMETHOPRIM/SULFAMETHOXAZOLE <=0.5/9.5 S TETRACYCLINE <=4 S TOBRAMYCIN <=2 S Unless otherwise specified, Testing Performed by: [address] [address] For Inquires, the Physician may contact the Microbiology department at [phone] Objective Assessment IMPRESSION: 1. Acute appendicitis with perforation, status post laparoscopic appendectomy 07/01/2020. 2. Fever. 3. Leukocytosis. 4. Lactic acidosis. 5. Gastroesophageal reflux disease. 6. Dyslipidemia. 7. prisoner. Plan Plan of Care meropenem ct abd noted, ct drainage done f/u BC from [facility] from 07/01, so far are negative. Monitor WBC trend and temp D/w nursing AYANNA SCHMIDT MD Jul 07, 2020 10:25
[2020-07-07 11:00] VITALS: BP 137/85
--- NOTE | 2020-07-07 12:02 | PDOC ---
[facility] PROGRESS NOTE Date of Service DOS: DATE: 07/07/20 TIME: 12:00 Chief Complaint Chief Complaint Acute appendicitis with concern for microperforation and now small 5 cm abcess History of GERD History of dyslipidemia Leukocytosis secondary to the above Elevated lactic acid secondary to acute infectious process SEPSIS cont the Zosyn, Pain management Blood cultures Surgical consult POD # 2 ID CONSULT following Justifications for Admission Justifications for Admission Other Justification CT scan showed signs consistent with acute appendicitis with perforation History of Present Illness History of Present Illness drain is going well, no fever, still painful he is ambulating OK cont Merrem, cx from drain still full pedning, discussed with ID consult will need to continue to IV abx at this time, cont for days at this point Patient is a 44-year-old gentleman with past medical history of GERD, dyslipidemia who was in his usual state of health until the morning prior to his admission when he woke up from his sleep with right lower quadrant abdominal pain. The patient takes Ultram on a regular basis and self medicated. [facility] He was given symptomatic relief of his symptoms that also included nausea and vomiting. The patient has history of GERD his pain improved with the Ultram nevertheless it recurred later in the day and this morning he experienced fever and chills reason why he was transported to the local ER for further evaluation and treatment. The patient had a CT of the abdomen which revealed acute appendicitis and had an elevated white blood cell count he was tachycardic and having an acute febrile illness of 101 Fahrenheit. professional services consultant was contacted and he requested transfer to our institution for definitive treatment. At the time my evaluation the patient is in acute distress due to the abdominal discomfort right lower quadrant no peritoneal signs patient is uncomfortable diaphoretic and tachycardic certainly in acute distress. Nontoxic looking and seems to be perfusing. As per report per ER physician lactic acid was 2.7 reason why we had requested an ICU bed initially. cloud consultant is in route at this point to take the patient to the OR for definitive definitive treatment. Laboratory data from outside facility has been reviewed and also imaging study results as well. He has received cephalosporin and Flagyl in the outside facility and will continue with Zosyn perioperatively. The patient describes the pain as a sharp sensation 10 out of 10 intensity with no radiation to the groin no radiation to the back no urinary symptoms were reported nausea and vomiting of gastric content was reported by the patient no other associated symptoms. The plan of care explained in detail and all of his concerns were addressed to the best of my abilities Past Medical History Cardiovascular: Hyperlipidemia GI: GERD Past Surgical History Past Surgical History: No pertinent history Family History Family History: No Significant Social History Smoke: No ALCOHOL: none Drugs: None 3-28 pain fair, ID CONSULTED, BLOOD CULT PENDING, CONT IV ZOSYN D/W RN Vitals/I&O Vitals/I&O: Vital Signs Date Time Temp Pulse Resp B/P (MAP) Pulse Ox O2 Delivery O2 Flow Rate FiO2 07/07/20 11:00 98.9 96 18 137/85 (102) 97 Room Air 98.9 I & O 07/06/20 07/06/20 07/07/20 15:00 23:00 07:00 Intake Total 350 ml 50 ml Output Total 30 ml 20 ml Balance 320 ml 50 ml -20 ml Physical Exam Physical Exam: GENERAL: The patient is propped up in bed, alert, comfortable Left wrist handcuffed to the bed. HEENT: Pupils equally round, reactive. Normal conjunctivae. Oropharynx pink and moist, no lesions seen. NECK: Supple. LUNGS: Clear to auscultation. No accessory muscle use. HEART: Normal S1, S2 regular. ABDOMEN: Obese, distended, soft, tender. Hypoactive bowel sounds. Surgical sites bandaged. EXTREMITIES: No gross edema or cyanosis. SKIN: Warm to touch. No signs of generalized rash. NEUROLOGIC: Alert and answering questions appropriately. He moves all extremities. General: Alert, Oriented X3, Cooperative, No acute distress Heart: Regular rate, Normal S1, Normal S2, Other (Tachycardic) Lungs: Clear Abdomen: Normal bowel sounds, Soft, Other (Mild tenderness around drain site drain intact with serosanguineous output) Extremities: No clubbing, No cyanosis, No edema Skin: No significant lesion Labs Labs: Laboratory Tests Test 07/07/20 03:30 White Blood Count 11.4 x10^3/uL (4.0-11.0) Red Blood Count 4.26 x10^6/uL (4.30-5.70) Hemoglobin 12.2 g/dL (13.0-17.5) Hematocrit 36.1 % (39.0-53.0) Mean Corpuscular Volume 85 fL (79-100) Mean Corpuscular Hemoglobin 29 pg (25-35) Mean Corpuscular Hemoglobin Concent 34 g/dL (31-37) Red Cell Distribution Width 13.6 % (11.5-14.5) Platelet Count 226 x10^3/uL (140-400) Neutrophils (%) (Auto) 73 % (31-73) Lymphocytes (%) (Auto) 14 % (24-48) Monocytes (%) (Auto) 10 % (0-9) Eosinophils (%) (Auto) 3 % (0-3) Basophils (%) (Auto) 0 % (0-3) Neutrophils # (Auto) 8.3 x10^3/uL (1.8-7.7) Lymphocytes # (Auto) 1.6 x10^3/uL (1.0-4.8) Monocytes # (Auto) 1.2 x10^3/uL (0.0-1.1) Eosinophils # (Auto) 0.3 x10^3/uL (0.0-0.7) Basophils # (Auto) 0.0 x10^3/uL (0.0-0.2) Sodium Level 142 mmol/L (136-145) Potassium Level 3.3 mmol/L (3.5-5.1) Chloride Level 104 mmol/L (98-107) Carbon Dioxide Level 28 mmol/L (21-32) Anion Gap 10 (6-14) Blood Urea Nitrogen 11 mg/dL (8-26) Creatinine 0.9 mg/dL (0.7-1.3) Estimated GFR (Cockcroft-Gault) 92.5 BUN/Creatinine Ratio 12 (6-20) Glucose Level 107 mg/dL (70-99) Calcium Level 8.2 mg/dL (8.5-10.1) Total Bilirubin 0.3 mg/dL (0.2-1.0) Aspartate Amino Transf (AST/SGOT) 45 U/L (15-37) Alanine Aminotransferase (ALT/SGPT) 71 U/L (16-63) Alkaline Phosphatase 61 U/L (46-116) Total Protein 6.1 g/dL (6.4-8.2) Albumin 2.4 g/dL (3.4-5.0) Albumin/Globulin Ratio 0.6 (1.0-1.7) Comment Review of Relevant I have reviewed the following items tawana (where applicable) has been applied. Medications: Current Medications Medications (Trade) Dose Ordered Sig/Kaden Route PRN Reason Start Time Stop Time Status Last Admin Dose Admin Ketorolac Tromethamine (Toradol 30mg Vial) 30 mg 1X ONCE IVP 07/06/20 14:45 07/06/20 14:46 DC 07/06/20 14:39 Justifications for Admission Other Justification AALIYAH KIRKPATRICK MD Jul 07, 2020 12:02
[2020-07-07 14:46] VITALS: BP 145/90
[2020-07-07 19:00] VITALS: BP 131/81
[2020-07-07] MEDS: ENOXAPARIN 40 MG/0.4 ML SYRINGE. SQ SCH (21:22)
[2020-07-07 23:00] VITALS: BP 122/82
[2020-07-08] MEDS: MEROPENEM 500 MG in IV NORMAL SALINE 50ML 50 ML IV SCH ×4 (00:12→18:13)
[2020-07-08 02:50] VITALS: BP 127/81
[2020-07-08] MEDS: oxyCODONE/APAP 5/325 1 TAB TABLET PO PRN ×2 (03:06→16:13)
[2020-07-08] MEDS: PANTOPRAZOLE 40 MG TABLET.DR. PO SCH (05:37)
[2020-07-08 07:00] VITALS: BP 136/93
--- NOTE | 2020-07-08 07:25 | PDOC ---
Infectious Disease Note Subjective Subjective Patient says he is feeling much better today ROS ROS no n/v/d/ Vital Sign Vital Signs Vital Signs Date Time Temp Pulse Resp B/P (MAP) Pulse Ox O2 Delivery O2 Flow Rate FiO2 07/08/20 04:06 20 97 Room Air 07/08/20 02:50 99.1 85 127/81 (96) 99.1 07/07/20 08:15 2.0 Physical Exam PHYSICAL EXAM GENERAL: The patient is propped up in bed, alert, comfortable Left wrist handcuffed to the bed. HEENT: Pupils equally round, reactive. Normal conjunctivae. Oropharynx pink and moist, no lesions seen. NECK: Supple. LUNGS: Clear to auscultation. No accessory muscle use. HEART: Normal S1, S2 regular. ABDOMEN: Obese, distended, soft, tender. Hypoactive bowel sounds. Surgical sites bandaged. EXTREMITIES: No gross edema or cyanosis. SKIN: Warm to touch. No signs of generalized rash. NEUROLOGIC: Alert and answering questions appropriately. He moves all extremities. Labs Micro GRAM STAIN Final Final GRAM NEGATIVE RODS:RARE GRAM POSITIVE COCCI:RARE SQUAMOUS EPI CELL:NOT APPLICABLE PMN (WBCs):MANY Unless otherwise specified, Testing Performed by: [address] [address] For Inquires, the Physician may contact the Microbiology department at [phone] ANAEROBIC-AEROBIC CULTURE Preliminary Preliminary MIXED AEROBIC AND ANAEROBIC BRYAN INCLUDING: FEW [ESCHERICHIA COLI] on 07/03/20 at 0945 RARE [CITROBACTER KOSERI] on 07/03/20 at 1253 RARE [BACTEROIDES FRAGILIS] on 07/04/20 at 1106 MODERATE [STREPTOCOCCUS CONSTELLATUS] ESCHERICHIA COLI CITROBACTER KOSERI STREPTOCOCCUS CONSTELLATUS BACTEROIDES FRAGILIS ANTIMICROBIAL SUSCEPTIBILITY Preliminary Comment Comment NEG CARA 56 ESCHERICHIA COLI ANTIBIOTIC RESULT INTERPRETATION AMPICILLIN/SULBACTAM <=4/2 S AMIKACIN <=16 S AMPICILLIN <=8 S AMOXICILLIN/K CLAVULANATE <=8/4 S AZTREONAM <=4 S CEFTRIAXONE <=1 S CEFTAZIDIME <=1 S CEFOTAXIME <=2 S CEFOXITIN <=8 S RUN DATE: 07/04/20 [facility] LAB *LIVE* PAGE 2 RUN TIME: 1113 Specimen Inquiry SPEC: [id number] PATIENT: MADELAINE VALLEJO [id number] (Continued) Procedure Result CONTINUED ON NEXT PAGE ---- -------- RUN DATE: 07/04/20 [facility] *LIVE* PAGE 3 RUN TIME: 1113 Specimen Inquiry SPEC: [id number] PATIENT: MADELAINE VALLEJO [id number] (Continued) Procedure Result ANTIMICROBIAL SUSCEPTIBILITY Preliminary (continued) CEFAZOLIN <=2 S CIPROFLOXACIN >2 R CEFEPIME <=2 S CEFUROXIME <=4 S CEFTAZIDIME/AVIBACTAM <=4 S ERTAPENEM <=0.5 S GENTAMICIN <=2 S LEVOFLOXACIN >4 R MEROPENEM <=1 S PIPERACILLIN/TAZOBACTAM <=8 S TRIMETHOPRIM/SULFAMETHOXAZOLE <=0.5/9.5 S TETRACYCLINE <=4 S TOBRAMYCIN <=2 S NEG CARA 56 CITROBACTER KOSERI ANTIBIOTIC RESULT INTERPRETATION AMPICILLIN/SULBACTAM <=4/2 S AMIKACIN <=16 S AMPICILLIN >16 R AMOXICILLIN/K CLAVULANATE <=8/4 S AZTREONAM <=4 S CEFTRIAXONE <=1 S CEFTAZIDIME <=1 S CEFOTAXIME <=2 S CEFOXITIN <=8 S CEFAZOLIN <=2 S CIPROFLOXACIN <=0.25 S CEFEPIME <=2 S CEFUROXIME <=4 S CEFTAZIDIME/AVIBACTAM <=4 S ERTAPENEM <=0.5 S GENTAMICIN <=2 S LEVOFLOXACIN <=0.5 S MEROPENEM <=1 S PIPERACILLIN/TAZOBACTAM <=8 S TRIMETHOPRIM/SULFAMETHOXAZOLE <=0.5/9.5 S TETRACYCLINE <=4 S TOBRAMYCIN <=2 S Unless otherwise specified, Testing Performed by: [address] [address] For Inquires, the Physician may contact the Microbiology department at [phone] Objective Assessment IMPRESSION: 1. Acute appendicitis with perforation, status post laparoscopic appendectomy 07/01/2020. 2. Fever. 3. Leukocytosis. 4. Lactic acidosis. 5. Gastroesophageal reflux disease. 6. Dyslipidemia. 7. prisoner. Plan Plan of Care meropenem ct abd noted, ct drainage done f/u BC from [facility] from 07/01, so far are negative. Monitor WBC trend and temp D/w nursing AYANNA SCHMIDT MD Jul 08, 2020 07:25
[2020-07-08] MEDS: MORPHINE ER 15 MG TABLET.ER PO SCH ×2 (08:26→21:38)
[2020-07-08] MEDS: LACTOBACILLUS RHAMNOSUS GG 1 CAPSULE. PO SCH ×2 (08:26→21:37)
[2020-07-08] MEDS: MAG HYDROX/ALUMINUM HYD/SIMETH 30 ML ORAL.SUSP PO PRN (08:38)
--- NOTE | 2020-07-08 08:38 | PDOC ---
SURGICAL PROGRESS NOTE DATE: 07/08/20 TIME: 08:35 Subjective feeling much improved tolerating diet Vital Signs Vital Signs Date Time Temp Pulse Resp B/P (MAP) Pulse Ox O2 Delivery O2 Flow Rate FiO2 07/08/20 04:06 20 97 Room Air 07/08/20 02:50 99.1 85 127/81 (96) 99.1 07/07/20 08:15 2.0 I&O Intake and Output 07/08/20 07:00 Intake Total 250 ml Output Total 30 ml Balance 220 ml Intake Oral 250 ml Drainage Total 30 ml General: Alert, Oriented X3, Cooperative Abdomen: Soft, Other (lap sites intact, juan r serosang ) Labs Laboratory Tests Test 07/07/20 03:30 White Blood Count 11.4 x10^3/uL (4.0-11.0) Red Blood Count 4.26 x10^6/uL (4.30-5.70) Hemoglobin 12.2 g/dL (13.0-17.5) Hematocrit 36.1 % (39.0-53.0) Mean Corpuscular Volume 85 fL (79-100) Mean Corpuscular Hemoglobin 29 pg (25-35) Mean Corpuscular Hemoglobin Concent 34 g/dL (31-37) Red Cell Distribution Width 13.6 % (11.5-14.5) Platelet Count 226 x10^3/uL (140-400) Neutrophils (%) (Auto) 73 % (31-73) Lymphocytes (%) (Auto) 14 % (24-48) Monocytes (%) (Auto) 10 % (0-9) Eosinophils (%) (Auto) 3 % (0-3) Basophils (%) (Auto) 0 % (0-3) Neutrophils # (Auto) 8.3 x10^3/uL (1.8-7.7) Lymphocytes # (Auto) 1.6 x10^3/uL (1.0-4.8) Monocytes # (Auto) 1.2 x10^3/uL (0.0-1.1) Eosinophils # (Auto) 0.3 x10^3/uL (0.0-0.7) Basophils # (Auto) 0.0 x10^3/uL (0.0-0.2) Sodium Level 142 mmol/L (136-145) Potassium Level 3.3 mmol/L (3.5-5.1) Chloride Level 104 mmol/L (98-107) Carbon Dioxide Level 28 mmol/L (21-32) Anion Gap 10 (6-14) Blood Urea Nitrogen 11 mg/dL (8-26) Creatinine 0.9 mg/dL (0.7-1.3) Estimated GFR (Cockcroft-Gault) 92.5 BUN/Creatinine Ratio 12 (6-20) Glucose Level 107 mg/dL (70-99) Calcium Level 8.2 mg/dL (8.5-10.1) Total Bilirubin 0.3 mg/dL (0.2-1.0) Aspartate Amino Transf (AST/SGOT) 45 U/L (15-37) Alanine Aminotransferase (ALT/SGPT) 71 U/L (16-63) Alkaline Phosphatase 61 U/L (46-116) Total Protein 6.1 g/dL (6.4-8.2) Albumin 2.4 g/dL (3.4-5.0) Albumin/Globulin Ratio 0.6 (1.0-1.7) Problem List improved, drain with 30cc out, will continue for now abx per ID Justicifation of Admission Dx: Justifications for Admission: Justification of Admission Dx: Yes Sepsis: Hemodynamic Instability JAMESON PELAYO [employer] Jul 08, 2020 08:38
[2020-07-08] MEDS: SENNOSIDES/DOCUSATE 8.6/50MG TABLET. PO SCH ×2 (08:39→21:35)
[2020-07-08] MEDS: POLYETHYLENE GLYCOL 3350 17 GM PACKET. PO SCH (08:39)
[2020-07-08] MEDS: DOCUSATE SODIUM 100 MG CAPSULE. PO SCH ×2 (08:39→21:35)
[2020-07-08 10:40] VITALS: BP 137/87
--- NOTE | 2020-07-08 13:00 | PDOC ---
[facility] [facility] PROGRESS NOTE Date of Service DOS: DATE: 07/08/20 TIME: 12:59 Chief Complaint Chief Complaint Acute appendicitis with concern for microperforation and now small 5 cm abcess History of GERD History of dyslipidemia Leukocytosis secondary to the above Elevated lactic acid secondary to acute infectious process SEPSIS Justifications for Admission Justifications for Admission Other Justification CT scan showed signs consistent with acute appendicitis with perforation History of Present Illness History of Present Illness drain is still going well, no fever, less painful today than 07/07 surg is happy with drain output, he is ambulating OK, eating better, slept better today cont Merrem, will need to continue to IV abx at this time, cont for days at this point Patient is a 44-year-old gentleman with past medical history of GERD, dyslipidemia who was in his usual state of health until the morning prior to his admission when he woke up from his sleep with right lower quadrant abdominal pain. The patient takes Ultram on a regular basis and self medicated. He is currently incarcerated in the [facility]. He was given symptomatic relief of his symptoms that also included nausea and vomiting. The patient has history of GERD his pain improved with the Ultram nevertheless it recurred later in the day and this morning he experienced fever and chills reason why he was transported to the local ER for further evaluation and treatment. The patient had a CT of the abdomen which revealed acute appendicitis and had an elevated white blood cell count he was tachycardic and having an acute febrile illness of 101 Fahrenheit. storage management consultant was contacted and he requested transfer to our institution for definitive treatment. At the time my evaluation the patient is in acute distress due to the abdominal discomfort right lower quadrant no peritoneal signs patient is uncomfortable diaphoretic and tachycardic certainly in acute distress. Nontoxic looking and seems to be perfusing. As per report per ER physician lactic acid was 2.7 reason why we had requested an ICU bed initially. cardiology consultant is in route at this point to take the patient to the OR for definitive definitive treatment. Laboratory data from outside facility has been reviewed and also imaging study results as well. He has received cephalosporin and Flagyl in the outside facility and will continue with Zosyn perioperatively. The patient describes the pain as a sharp sensation 10 out of 10 intensity with no radiation to the groin no radiation to the back no urinary symptoms were reported nausea and vomiting of gastric content was reported by the patient no other associated symptoms. The plan of care explained in detail and all of his concerns were addressed to the best of my abilities Past Medical History Cardiovascular: Hyperlipidemia GI: GERD Past Surgical History Past Surgical History: No pertinent history Family History Family History: No Significant Social History Smoke: No ALCOHOL: none Drugs: None 3-28 pain fair, ID CONSULTED, BLOOD CULT PENDING, CONT IV ZOSYN D/W RN Vitals/I&O Vitals/I&O: Vital Signs Date Time Temp Pulse Resp B/P (MAP) Pulse Ox O2 Delivery O2 Flow Rate FiO2 07/08/20 12:32 Room Air 07/08/20 10:40 98.4 97 18 137/87 (104) 99 98.4 07/07/20 08:15 2.0 I & O 07/07/20 07/07/20 07/08/20 15:00 23:00 07:00 Intake Total 250 ml Output Total 30 ml Balance 250 ml -30 ml Physical Exam Physical Exam: GENERAL: The patient is propped up in bed, alert, comfortable Left wrist handcuffed to the bed. HEENT: Pupils equally round, reactive. Normal conjunctivae. Oropharynx pink and moist, no lesions seen. NECK: Supple. LUNGS: Clear to auscultation. No accessory muscle use. HEART: Normal S1, S2 regular. ABDOMEN: Obese, distended, soft, tender. Hypoactive bowel sounds. Surgical sites bandaged. EXTREMITIES: No gross edema or cyanosis. SKIN: Warm to touch. No signs of generalized rash. NEUROLOGIC: Alert and answering questions appropriately. He moves all extremities. General: Alert, Oriented X3, Cooperative Heart: Regular rate, Normal S1, Normal S2, Other (Tachycardic) Lungs: Clear Abdomen: Soft, Other (lap sites intact, juan r serosang ) Extremities: No clubbing, No cyanosis, No edema Skin: No significant lesion Comment Review of Relevant I have reviewed the following items tawana (where applicable) has been applied. Justifications for Admission Other Justification AALIYAH KIRKPATRICK MD Jul 08, 2020 13:00
[2020-07-08 14:27] VITALS: BP 131/86
--- NOTE | 2020-07-08 15:30 | NUR ---
ARIELLA flushed with 10cc NS.
[2020-07-08 19:00] VITALS: BP 127/86
[2020-07-08] MEDS: ENOXAPARIN 40 MG/0.4 ML SYRINGE. SQ SCH (21:37)
[2020-07-08 23:00] VITALS: BP 128/89
[2020-07-09] MEDS: MEROPENEM 500 MG in IV NORMAL SALINE 50ML 50 ML IV SCH ×4 (00:05→17:45)
[2020-07-09] MEDS: MAG HYDROX/ALUMINUM HYD/SIMETH 30 ML ORAL.SUSP PO PRN (00:09)
--- NOTE | 2020-07-09 01:12 | NUR ---
Student Alessia Crook did assessment charting. Chart verified by Nirmala QUINTANILLA prior to saving.
[2020-07-09 03:00] VITALS: BP 121/80
[2020-07-09] MEDS: oxyCODONE/APAP 5/325 1 TAB TABLET PO PRN (05:36)
[2020-07-09 07:55] VITALS: BP 127/84
[2020-07-09] MEDS: MORPHINE ER 15 MG TABLET.ER PO SCH ×2 (08:31→21:04)
[2020-07-09] MEDS: PANTOPRAZOLE 40 MG TABLET.DR. PO SCH (08:31)
[2020-07-09] MEDS: LACTOBACILLUS RHAMNOSUS GG 1 CAPSULE. PO SCH ×2 (08:31→21:02)
[2020-07-09] MEDS: POLYETHYLENE GLYCOL 3350 17 GM PACKET. PO SCH (08:34)
[2020-07-09] MEDS: SENNOSIDES/DOCUSATE 8.6/50MG TABLET. PO SCH ×2 (08:34→21:00)
[2020-07-09] MEDS: DOCUSATE SODIUM 100 MG CAPSULE. PO SCH ×2 (08:34→21:00)
--- NOTE | 2020-07-09 08:52 | PDOC ---
SURGICAL PROGRESS NOTE DATE: 07/09/20 TIME: 08:50 Subjective tolerating diet ambulating having stools Vital Signs Vital Signs Date Time Temp Pulse Resp B/P (MAP) Pulse Ox O2 Delivery O2 Flow Rate FiO2 07/09/20 08:31 Room Air 07/09/20 03:00 98.2 80 18 121/80 (94) 98 98.2 General: Alert, Oriented X3, Cooperative Abdomen: Soft, Other (ND, drain serosang ) Assessment/Plan s/p perf appy stable d/w ID can not return with drain, output is serosang will repeat CT in AM, if abscess resolved can remove drain Justicifation of Admission Dx: Justifications for Admission: Justification of Admission Dx: Yes Sepsis: Hemodynamic Instability JAMESON PELAYO [employer]IC SUPERVISOR Jul 09, 2020 08:52
--- NOTE | 2020-07-09 09:27 | PDOC ---
Infectious Disease Note Subjective Subjective Patient says he is feeling much better today Vital Sign Vital Signs Vital Signs Date Time Temp Pulse Resp B/P (MAP) Pulse Ox O2 Delivery O2 Flow Rate FiO2 07/09/20 08:31 Room Air 07/09/20 03:00 98.2 80 18 121/80 (94) 98 98.2 Physical Exam PHYSICAL EXAM GENERAL: The patient is propped up in bed, alert, comfortable Left wrist handcuffed to the bed. HEENT: Pupils equally round, reactive. Normal conjunctivae. Oropharynx pink and moist, no lesions seen. NECK: Supple. LUNGS: Clear to auscultation. No accessory muscle use. HEART: Normal S1, S2 regular. ABDOMEN: Obese, distended, soft, tender. Hypoactive bowel sounds. Surgical sites bandaged. EXTREMITIES: No gross edema or cyanosis. SKIN: Warm to touch. No signs of generalized rash. NEUROLOGIC: Alert and answering questions appropriately. He moves all extremities. Labs Micro GRAM STAIN Final Final GRAM NEGATIVE RODS:RARE GRAM POSITIVE COCCI:RARE SQUAMOUS EPI CELL:NOT APPLICABLE PMN (WBCs):MANY Unless otherwise specified, Testing Performed by: [address] [address] For Inquires, the Physician may contact the Microbiology department at [phone] ANAEROBIC-AEROBIC CULTURE Preliminary Preliminary MIXED AEROBIC AND ANAEROBIC BRYAN INCLUDING: FEW [ESCHERICHIA COLI] on 07/03/20 at 0945 RARE [CITROBACTER KOSERI] on 07/03/20 at 1253 RARE [BACTEROIDES FRAGILIS] on 07/04/20 at 1106 MODERATE [STREPTOCOCCUS CONSTELLATUS] ESCHERICHIA COLI CITROBACTER KOSERI STREPTOCOCCUS CONSTELLATUS BACTEROIDES FRAGILIS ANTIMICROBIAL SUSCEPTIBILITY Preliminary Comment Comment NEG CARA 56 ESCHERICHIA COLI ANTIBIOTIC RESULT INTERPRETATION AMPICILLIN/SULBACTAM <=4/2 S AMIKACIN <=16 S AMPICILLIN <=8 S AMOXICILLIN/K CLAVULANATE <=8/4 S AZTREONAM <=4 S CEFTRIAXONE <=1 S CEFTAZIDIME <=1 S CEFOTAXIME <=2 S CEFOXITIN <=8 S RUN DATE: 07/04/20 [facility] *LIVE* PAGE 2 RUN TIME: 1113 Specimen Inquiry SPEC: [id number] PATIENT: MADELAINE VALLEJO [id number] (Continued) ----- ------- Procedure Result CONTINUED ON NEXT PAGE RUN DATE: 07/04/20 [facility] *LIVE* PAGE 3 RUN TIME: 1113 Specimen Inquiry SPEC: [id number] PATIENT: MADELAINE VALLEJO [id number] (Continued) Procedure Result ANTIMICROBIAL SUSCEPTIBILITY Preliminary (continued) CEFAZOLIN <=2 S CIPROFLOXACIN >2 R CEFEPIME <=2 S CEFUROXIME <=4 S CEFTAZIDIME/AVIBACTAM <=4 S ERTAPENEM <=0.5 S GENTAMICIN <=2 S LEVOFLOXACIN >4 R MEROPENEM <=1 S PIPERACILLIN/TAZOBACTAM <=8 S TRIMETHOPRIM/SULFAMETHOXAZOLE <=0.5/9.5 S TETRACYCLINE <=4 S TOBRAMYCIN <=2 S NEG CARA 56 CITROBACTER KOSERI ANTIBIOTIC RESULT INTERPRETATION AMPICILLIN/SULBACTAM <=4/2 S AMIKACIN <=16 S AMPICILLIN >16 R AMOXICILLIN/K CLAVULANATE <=8/4 S AZTREONAM <=4 S CEFTRIAXONE <=1 S CEFTAZIDIME <=1 S CEFOTAXIME <=2 S CEFOXITIN <=8 S CEFAZOLIN <=2 S CIPROFLOXACIN <=0.25 S CEFEPIME <=2 S CEFUROXIME <=4 S CEFTAZIDIME/AVIBACTAM <=4 S ERTAPENEM <=0.5 S GENTAMICIN <=2 S LEVOFLOXACIN <=0.5 S MEROPENEM <=1 S PIPERACILLIN/TAZOBACTAM <=8 S TRIMETHOPRIM/SULFAMETHOXAZOLE <=0.5/9.5 S TETRACYCLINE <=4 S TOBRAMYCIN <=2 S Unless otherwise specified, Testing Performed by: [address] [address] For Inquires, the Physician may contact the Microbiology department at [phone] Objective Assessment IMPRESSION: 1. Acute appendicitis with perforation, status post laparoscopic appendectomy 07/01/2020. 2. Fever. 3. Leukocytosis. 4. Lactic acidosis. 5. Gastroesophageal reflux disease. 6. Dyslipidemia. 7. prisoner. Plan Plan of Care meropenem ct abd noted, ct drainage done f/u BC from [facility] from 07/01, so far are negative. Monitor WBC trend and temp ct tomorrow, if drain is out then d/c on po D/w nursing AYANNA SCHMIDT MD Jul 09, 2020 09:26
[2020-07-09 10:31] VITALS: BP 124/74
--- NOTE | 2020-07-09 13:00 | NUR ---
ARIELLA drain flushed with 10cc NS.
--- NOTE | 2020-07-09 13:46 | PDOC ---
[facility] PROGRESS NOTE Date of Service DOS: DATE: 07/09/20 TIME: 13:45 Chief Complaint Chief Complaint Acute appendicitis with concern for microperforation and now small 5 cm abcess History of GERD History of dyslipidemia Leukocytosis secondary to the above Elevated lactic acid secondary to acute infectious process SEPSIS Justifications for Admission Justifications for Admission Other Justification CT scan showed signs consistent with acute appendicitis with perforation History of Present Illness History of Present Illness 44drain output is btter will CT abd in AM, if abcess improved will DC drain, gen surg team discussed with me, cont other, ID discused may be able to change to PO abx tomorrow 4.3 going well, no fever, less painful today than 07/07 surg is happy with drain output, he is ambulating OK, eating better, slept better today cont Merrem, will need to continue to IV abx at this time, cont for days at this point Patient is a 44-year-old gentleman with past medical history of GERD, dyslipidemia who was in his usual state of health until the morning prior to his admission when he woke up from his sleep with right lower quadrant abdominal pain. The patient takes Ultram on a regular basis and self medicated. He is currently incarcerated in the group home. He was given symptomatic relief of his symptoms that also included nausea and vomiting. The patient has history of GERD his pain improved with the Ultram nevertheless it recurred later in the day and this morning he experienced fever and chills reason why he was transported to the local ER for further evaluation and treatment. The patient had a CT of the abdomen which revealed acute appendicitis and had an elevated white blood ce ll count he was tachycardic and having an acute febrile illness of 101 Fahrenheit. distributor sales consultant was contacted and he requested transfer to our institution for definitive treatment. At the time my evaluation the patient is in acute distress due to the abdominal discomfort right lower quadrant no peritoneal signs patient is uncomfortable diaphoretic and tachycardic certainly in acute distress. Nontoxic looking and seems to be perfusing. As per report per ER physician lactic acid was 2.7 reason why we had requested an ICU bed initially. talent acquisition consultant is in route at this point to take the patient to the OR for definitive definitive treatment. Laboratory data from outside facility has been reviewed and also imaging study results as well. He has received cephalosporin and Flagyl in the outside facility and will continue with Zosyn perioperatively. The patient describes the pain as a sharp sensation 10 out of 10 intensity with no radiation to the groin no radiation to the back no urinary symptoms were reported nausea and vomiting of gastric content was reported by the patient no other associated symptoms. The plan of care explained in detail and all of his concerns were addressed to the best of my abilities Past Medical History Cardiovascular: Hyperlipidemia GI: GERD Past Surgical History Past Surgical History: No pertinent history Family History Family History: No Significant Social History Smoke: No ALCOHOL: none Drugs: None 3-28 pain fair, ID CONSULTED, BLOOD CULT PENDING, CONT IV ZOSYN D/W RN Vitals/I&O Vitals/I&O: Vital Signs Date Time Temp Pulse Resp B/P (MAP) Pulse Ox O2 Delivery O2 Flow Rate FiO2 07/09/20 13:08 Room Air 07/09/20 10:31 98.0 80 18 124/74 (91) 96 98.0 Physical Exam Physical Exam: GENERAL: The patient is propped up in bed, alert, comfortable Left wrist handcuffed to the bed. HEENT: Pupils equally round, reactive. Normal conjunctivae. Oropharynx pink and moist, no lesions seen. NECK: Supple. LUNGS: Clear to auscultation. No accessory muscle use. HEART: Normal S1, S2 regular. ABDOMEN: Obese, distended, soft, tender. Hypoactive bowel sounds. Surgical sites bandaged. EXTREMITIES: No gross edema or cyanosis. SKIN: Warm to touch. No signs of generalized rash. NEUROLOGIC: Alert and answering questions appropriately. He moves all extremities. General: Alert, Oriented X3, Cooperative Heart: Regular rate, Normal S1, Normal S2, Other (Tachycardic) Lungs: Clear Abdomen: Soft, Other (ND, drain serosang ) Extremities: No clubbing, No cyanosis, No edema Skin: No significant lesion Comment Review of Relevant I have reviewed the following items tawana (where applicable) has been applied. Justifications for Admission Other Justification AALIYAH KIRKPATRICK MD Jul 09, 2020 13:46
[2020-07-09 14:45] VITALS: BP 126/78
[2020-07-09 19:30] VITALS: BP 124/77
[2020-07-09] MEDS: ENOXAPARIN 40 MG/0.4 ML SYRINGE. SQ SCH (21:02)
[2020-07-09 23:25] VITALS: BP 130/73
[2020-07-10] MEDS: MEROPENEM 500 MG in IV NORMAL SALINE 50ML 50 ML IV SCH ×5 (00:14→23:31)
[2020-07-10 03:41] VITALS: BP 108/70
[2020-07-10 07:00] VITALS: BP 122/78
[2020-07-10] MEDS: PANTOPRAZOLE 40 MG TABLET.DR. PO SCH (07:30)
[2020-07-10] MEDS: DOCUSATE SODIUM 100 MG CAPSULE. PO SCH ×2 (08:23→20:36)
[2020-07-10] MEDS: POLYETHYLENE GLYCOL 3350 17 GM PACKET. PO SCH (08:24)
[2020-07-10] MEDS: SENNOSIDES/DOCUSATE 8.6/50MG TABLET. PO SCH ×2 (08:24→20:36)
[2020-07-10] MEDS: LACTOBACILLUS RHAMNOSUS GG 1 CAPSULE. PO SCH ×2 (08:24→20:35)
--- NOTE | 2020-07-10 08:25 | PDOC ---
Infectious Disease Note Subjective Subjective Patient says he is feeling good ROS ROS no n/v/d/sob Vital Sign Vital Signs Vital Signs Date Time Temp Pulse Resp B/P (MAP) Pulse Ox O2 Delivery O2 Flow Rate FiO2 07/10/20 03:41 98.6 86 18 108/70 (83) 96 Room Air 98.6 Physical Exam PHYSICAL EXAM GENERAL: The patient is propped up in bed, alert, comfortable Left wrist handcuffed to the bed. HEENT: Pupils equally round, reactive. Normal conjunctivae. Oropharynx pink and moist, no lesions seen. NECK: Supple. LUNGS: Clear to auscultation. No accessory muscle use. HEART: Normal S1, S2 regular. ABDOMEN: Obese, distended, soft, tender. Hypoactive bowel sounds. Surgical sites bandaged. EXTREMITIES: No gross edema or cyanosis. SKIN: Warm to touch. No signs of generalized rash. NEUROLOGIC: Alert and answering questions appropriately. He moves all extremities. Labs Micro GRAM STAIN Final Final GRAM NEGATIVE RODS:RARE GRAM POSITIVE COCCI:RARE SQUAMOUS EPI CELL:NOT APPLICABLE PMN (WBCs):MANY Unless otherwise specified, Testing Performed by: [address] [address] For Inquires, the Physician may contact the Microbiology department at [phone] ANAEROBIC-AEROBIC CULTURE Preliminary Preliminary MIXED AEROBIC AND ANAEROBIC BRYAN INCLUDING: FEW [ESCHERICHIA COLI] on 07/03/20 at 0945 RARE [CITROBACTER KOSERI] on 07/03/20 at 1253 RARE [BACTEROIDES FRAGILIS] on 07/04/20 at 1106 MODERATE [STREPTOCOCCUS CONSTELLATUS] ESCHERICHIA COLI CITROBACTER KOSERI STREPTOCOCCUS CONSTELLATUS BACTEROIDES FRAGILIS ANTIMICROBIAL SUSCEPTIBILITY Preliminary Comment Comment NEG CARA 56 ESCHERICHIA COLI ANTIBIOTIC RESULT INTERPRETATION AMPICILLIN/SULBACTAM <=4/2 S AMIKACIN <=16 S AMPICILLIN <=8 S AMOXICILLIN/K CLAVULANATE <=8/4 S AZTREONAM <=4 S CEFTRIAXONE <=1 S CEFTAZIDIME <=1 S CEFOTAXIME <=2 S CEFOXITIN <=8 S RUN DATE: 07/04/20 [facility] *LIVE* PAGE 2 RUN TIME: 1113 Specimen Inquiry SPEC: [id number] PATIENT: MADELAINE VALLEJO [id number] (Continued) Procedure Result CONTINUED ON NEXT PAGE RUN DATE: 07/04/20 [facility] *LIVE* PAGE 3 RUN TIME: 1113 Specimen Inquiry SPEC: [id number] PATIENT: MADELAINE VALLEJO [id number] (Continued) Procedure Result ANTIMICROBIAL SUSCEPTIBILITY Preliminary (continued) CEFAZOLIN <=2 S CIPROFLOXACIN >2 R CEFEPIME <=2 S CEFUROXIME <=4 S CEFTAZIDIME/AVIBACTAM <=4 S ERTAPENEM <=0.5 S GENTAMICIN <=2 S LEVOFLOXACIN >4 R MEROPENEM <=1 S PIPERACILLIN/TAZOBACTAM <=8 S TRIMETHOPRIM/SULFAMETHOXAZOLE <=0.5/9.5 S TETRACYCLINE <=4 S TOBRAMYCIN <=2 S NEG CARA 56 CITROBACTER KOSERI ANTIBIOTIC RESULT INTERPRETATION AMPICILLIN/SULBACTAM <=4/2 S AMIKACIN <=16 S AMPICILLIN >16 R AMOXICILLIN/K CLAVULANATE <=8/4 S AZTREONAM <=4 S CEFTRIAXONE <=1 S CEFTAZIDIME <=1 S CEFOTAXIME <=2 S CEFOXITIN <=8 S CEFAZOLIN <=2 S CIPROFLOXACIN <=0.25 S CEFEPIME <=2 S CEFUROXIME <=4 S CEFTAZIDIME/AVIBACTAM <=4 S ERTAPENEM <=0.5 S GENTAMICIN <=2 S LEVOFLOXACIN <=0.5 S MEROPENEM <=1 S PIPERACILLIN/TAZOBACTAM <=8 S TRIMETHOPRIM/SULFAMETHOXAZOLE <=0.5/9.5 S TETRACYCLINE <=4 S TOBRAMYCIN <=2 S Unless otherwise specified, Testing Performed by: [address] [address] For Inquires, the Physician may contact the Microbiology department at [phone] Objective Assessment IMPRESSION: 1. Acute appendicitis with perforation, status post laparoscopic appendectomy 07/01/2020. 2. Fever. 3. Leukocytosis. 4. Lactic acidosis. 5. Gastroesophageal reflux disease. 6. Dyslipidemia. 7. prisoner. Plan Plan of Care meropenem ct abd noted, ct drainage done f/u [facility] from 07/01, so far are negative. Monitor WBC trend and temp ct today, if drain is out then d/c on po D/w nursing AYANNA SCHMIDT MD Jul 10, 2020 08:25
[2020-07-10] MEDS ORDERED: IOHEXOL 300 MG/ML 100ML VIAL. IV ONE (09:00)
[2020-07-10] MEDS ORDERED: CONTRAST GIVEN. MC PRN (09:00)
[2020-07-10] MEDS ORDERED: IOHEXOL 240 MG/ML 50ML VIAL. PO ONE (09:00)
[2020-07-10] MEDS: MORPHINE ER 15 MG TABLET.ER PO SCH ×2 (09:00→20:36)
[2020-07-10 11:00] VITALS: BP 124/76
--- NOTE | 2020-07-10 11:29 | PDOC ---
JAMESON PELAYO APRN 07/10/20 1129: SURGICAL PROGRESS NOTE DATE: 07/10/20 TIME: 11:28 Subjective doing well back from ct minimal drain out Vital Signs Vital Signs Date Time Temp Pulse Resp B/P (MAP) Pulse Ox O2 Delivery O2 Flow Rate FiO2 07/10/20 11:00 97.9 81 18 124/76 (92) 98 Room Air 97.9 I&O Intake and Output 07/10/20 07:00 Intake Total 742 ml Balance 742 ml Intake Oral 742 ml # Voids 5 General: Alert, Oriented X3, Cooperative Abdomen: Soft, Other (drain serosang) Problem List await ct if abscess resolved, dc drain Justicifation of Admission Dx: Justifications for Admission: Justification of Admission Dx: Yes Sepsis: Hemodynamic Instability JESSICA MTZ MD 07/10/20 1545: SURGICAL PROGRESS NOTE Assessment/Plan CT showing resolution of the fluid collection around present drain, but new fluid collection between cecum and sigmoid. Will have drain removed. Since patient is stable will treat with oral abx. Agree with Manolo's assessment and plan JAMESON PELAYO APRN Jul 10, 2020 11:29 JESSICA MTZ MD Jul 10, 2020 15:45
--- NOTE | 2020-07-10 11:53 | PDOC ---
[facility] [facility] PROGRESS NOTE Date of Service DOS: DATE: 07/10/20 TIME: 11:52 Chief Complaint Chief Complaint Acute appendicitis with concern for microperforation and now small 5 cm abcess History of GERD History of dyslipidemia Leukocytosis secondary to the above Elevated lactic acid secondary to acute infectious process SEPSIS Justifications for Admission Justifications for Admission Other Justification CT scan showed signs consistent with acute appendicitis with perforation History of Present Illness History of Present Illness 44drain output is btter will CT abd in AM, if abcess improved will DC drain, gen surg team discussed with me, cont other, ID discused may be able to change to PO abx tomorrow 4.3 going well, no fever, less painful today than 07/07 surg is happy with drain output, he is ambulating OK, eating better, slept better today cont Merrem, will need to continue to IV abx at this time, cont for days at this point Patient is a 44-year-old gentleman with past medical history of GERD, dyslipidemia who was in his usual state of health until the morning prior to his admission when he woke up from his sleep with right lower quadrant abdominal pain. The patient takes Ultram on a regular basis and self medicated. He is currently incarcerated in the half-way. He was given symptomatic relief of his symptoms that also included nausea and vomiting. The patient has history of GERD his pain improved with the Ultram nevertheless it recurred later in the day and this morning he experienced fever and chills reason why he was transported to the local ER for further evaluation and treatment. The patient had a CT of the abdomen which revealed acute appendicitis and had an elevated white blood ce ll count he was tachycardic and having an acute febrile illness of 101 Fahrenheit. c consultant was contacted and he requested transfer to our institution for definitive treatment. At the time my evaluation the patient is in acute distress due to the abdominal discomfort right lower quadrant no peritoneal signs patient is uncomfortable diaphoretic and tachycardic certainly in acute distress. Nontoxic looking and seems to be perfusing. As per report per ER physician lactic acid was 2.7 reason why we had requested an ICU bed initially. insurance healthcare consultant is in route at this point to take the patient to the OR for definitive definitive treatment. Laboratory data from outside facility has been reviewed and also imaging study results as well. He has received cephalosporin and Flagyl in the outside facility and will continue with Zosyn perioperatively. The patient describes the pain as a sharp sensation 10 out of 10 intensity with no radiation to the groin no radiation to the back no urinary symptoms were reported nausea and vomiting of gastric content was reported by the patient no other associated symptoms. The plan of care explained in detail and all of his concerns were addressed to the best of my abilities Past Medical History Cardiovascular: Hyperlipidemia GI: GERD Past Surgical History Past Surgical History: No pertinent history Family History Family History: No Significant Social History Smoke: No ALCOHOL: none Drugs: None 3- pain fair, ID CONSULTED, BLOOD CULT PENDING, CONT IV ZOSYN D/W RN Vitals/I&O Vitals/I&O: Vital Signs Date Time Temp Pulse Resp B/P (MAP) Pulse Ox O2 Delivery O2 Flow Rate FiO2 07/10/20 11:00 97.9 81 18 124/76 (92) 98 Room Air 97.9 I & O 07/09/20 07/09/20 07/10/20 15:00 23:00 07:00 Intake Total 500 ml 242 ml Balance 500 ml 242 ml Physical Exam Physical Exam: GENERAL: The patient is propped up in bed, alert, comfortable Left wrist handcuffed to the bed. HEENT: Pupils equally round, reactive. Normal conjunctivae. Oropharynx pink and moist, no lesions seen. NECK: Supple. LUNGS: Clear to auscultation. No accessory muscle use. HEART: Normal S1, S2 regular. ABDOMEN: Obese, distended, soft, tender. Hypoactive bowel sounds. Surgical sites bandaged. EXTREMITIES: No gross edema or cyanosis. SKIN: Warm to touch. No signs of generalized rash. NEUROLOGIC: Alert and answering questions appropriately. He moves all extremities. General: Alert, Oriented X3, Cooperative Heart: Regular rate, Normal S1, Normal S2, Other (Tachycardic) Lungs: Clear Abdomen: Soft, Other (drain serosang) Extremities: No clubbing, No cyanosis, No edema Skin: No significant lesion Assessment and Plan Assessmemt and Plan Postop day 6 lap appendectomy Resolving abscess GERD Hyperlipidemia Resolving sepsis Plan IV antibiotics Wound care We are checking a new CAT scan today if that is improved we hope to pull the ARIELLA drain Home meds DVT prophylaxis Full code Discharge back to [facility] when okay with general surgery Comment Review of Relevant I have reviewed the following items tawana (where applicable) has been applied. Medications: Current Medications Medications (Trade) Dose Ordered Sig/Kaden Route PRN Reason Start Time Stop Time Status Last Admin Dose Admin Iohexol (Omnipaque 240 Mg/ml) 50 ml 1X ONCE PO 07/10/20 09:00 07/10/20 09:01 DC 07/10/20 09:00 Iohexol (Omnipaque 300 Mg/ml) 75 ml 1X ONCE IV 07/10/20 09:00 07/10/20 09:01 DC 07/10/20 09:00 Justifications for Admission Other Justification BROOKS MONROE III DO Jul 10, 2020 11:53
--- NOTE | 2020-07-10 14:01 | RAD ---
Exam: CT abdomen/pelvis with intravenous contrast Indication: Evaluate abscess post drain placement Comparison: CT abdomen and pelvis 07/04/2020 Technique: Helical CT imaging performed of the abdomen and pelvis after the intravenous administratio n of 75 mL Omnipaque 300 contrast. Sagittal and coronal reformats were obtained. One or more of the following individualized dose reduction techniques were utilized for this examinat ion: 1. Automated exposure control 2. Adjustment of the mA and/or kV according to patient size 3. Use of iterative reconstruction technique. Findings: Lower chest: Pleural effusions have resolved. Atelectasis in the lower lobes has decreased, nearly re solved. The heart is normal in size. Liver: The liver is normal in size. No focal lesion. Gallbladder/Biliary Tree: Normal. Pancreas: Normal. Spleen: Spleen is at the upper limit of normal measuring 14 cm in AP diameter. Adrenal Glands: Normal. Kidneys/Ureters/Bladder: The kidneys are normal in size and enhance symmetrically. No hydronephrosis. Ureters and bladder are unremarkable. Reproductive Organs: The gland is normal. Stomach, small bowel, and colon: Right lower quadrant fluid collections described below. There is new wall thickening in the sigmoid colon and mild wall thickening of the cecum, likely reactive. The col on is otherwise unremarkable. No small bowel obstruction. The stomach is normal. Vasculature: Abdominal aorta is normal in caliber. Lymph Nodes: No lymphadenopathy. Peritoneum and retroperitoneum: There is a new percutaneous pigtail drainage catheter terminating in the right lower quadrant. The fluid collection in the right paracolic gutter along the cecum on prior exam has nearly resolved. There is a small residual component of the fluid collection immediately an terior to the pigtail of the drainage catheter measuring approximately 1.4 x1.3 x 0.6 cm (image 54 se bessie 2). There is a new fluid collection between the cecum and redundant sigmoid colon measuring 3.1 x 1.7 x 2.1 cm (image 61, series 2). This abuts both the cecum and sigmoid colon. Minimal iatrogenic free air at the tip of the drainage catheter. Mild mesenteric edema. Bones: No acute osseous abnormality. Impression: 1. New drainage catheter in the right lower quadrant. The fluid collection in the right paracolic gu tter at the tip of the drainage catheter has nearly resolved. There is a small residual component of the fluid collection immediately anterior to the catheter tip measuring approximately 1.4 cm maximum diameter. 2. New approximately 3 cm fluid collection in the right lower quadrant between and abutting the cecu m and redundant sigmoid colon. New reactive wall thickening in the sigmoid colon. 3. Resolution of pleural effusions and decreased atelectasis in the lower lobes. Electronically signed by: Hali Sotelo MD (07/10/2020 1:59 PM) [id number]
[2020-07-10 15:10] VITALS: BP 124/78
[2020-07-10 19:00] VITALS: BP 121/75
[2020-07-10] MEDS: ENOXAPARIN 40 MG/0.4 ML SYRINGE. SQ SCH (20:38)
[2020-07-10 23:00] VITALS: BP 113/69
[2020-07-11 03:00] VITALS: BP 99/60
[2020-07-11] MEDS: MEROPENEM 500 MG in IV NORMAL SALINE 50ML 50 ML IV SCH (06:21)
[2020-07-11 07:00] VITALS: BP 119/77
[2020-07-11] MEDS: LACTOBACILLUS RHAMNOSUS GG 1 CAPSULE. PO SCH (08:21)
[2020-07-11] MEDS: PANTOPRAZOLE 40 MG TABLET.DR. PO SCH (08:21)
[2020-07-11] MEDS: MORPHINE ER 15 MG TABLET.ER PO SCH (08:22)
[2020-07-11] MEDS: DOCUSATE SODIUM 100 MG CAPSULE. PO SCH (08:25)
[2020-07-11] MEDS: POLYETHYLENE GLYCOL 3350 17 GM PACKET. PO SCH (08:25)
[2020-07-11] MEDS: SENNOSIDES/DOCUSATE 8.6/50MG TABLET. PO SCH (08:26)
--- NOTE | 2020-07-11 08:33 | PDOC ---
Infectious Disease Note Subjective Subjective Patient says he is feeling good ROS ROS no n/v/d/ Vital Sign Vital Signs Vital Signs Date Time Temp Pulse Resp B/P (MAP) Pulse Ox O2 Delivery O2 Flow Rate FiO2 07/11/20 08:22 Room Air 07/11/20 07:00 98.2 87 16 119/77 (91) 95 98.2 Physical Exam PHYSICAL EXAM GENERAL: The patient is propped up in bed, alert, comfortable Left wrist handcuffed to the bed. HEENT: Pupils equally round, reactive. Normal conjunctivae. Oropharynx pink and moist, no lesions seen. NECK: Supple. LUNGS: Clear to auscultation. No accessory muscle use. HEART: Normal S1, S2 regular. ABDOMEN: Obese, distended, soft, tender. Hypoactive bowel sounds. Surgical sites bandaged. EXTREMITIES: No gross edema or cyanosis. SKIN: Warm to touch. No signs of generalized rash. NEUROLOGIC: Alert and answering questions appropriately. He moves all extremities. Labs Micro GRAM STAIN Final Final GRAM NEGATIVE RODS:RARE GRAM POSITIVE COCCI:RARE SQUAMOUS EPI CELL:NOT APPLICABLE PMN (WBCs):MANY Unless otherwise specified, Testing Performed by: [address] [address] For Inquires, the Physician may contact the Microbiology department at [phone] ANAEROBIC-AEROBIC CULTURE Preliminary Preliminary MIXED AEROBIC AND ANAEROBIC BRYAN INCLUDING: FEW [ESCHERICHIA COLI] on 07/03/20 at 0945 RARE [CITROBACTER KOSERI] on 07/03/20 at 1253 RARE [BACTEROIDES FRAGILIS] on 07/04/20 at 1106 MODERATE [STREPTOCOCCUS CONSTELLATUS] ESCHERICHIA COLI CITROBACTER KOSERI STREPTOCOCCUS CONSTELLATUS BACTEROIDES FRAGILIS ANTIMICROBIAL SUSCEPTIBILITY Preliminary Comment Comment NEG CARA 56 ESCHERICHIA COLI ANTIBIOTIC RESULT INTERPRETATION AMPICILLIN/SULBACTAM <=4/2 S AMIKACIN <=16 S AMPICILLIN <=8 S AMOXICILLIN/K CLAVULANATE <=8/4 S AZTREONAM <=4 S CEFTRIAXONE <=1 S CEFTAZIDIME <=1 S CEFOTAXIME <=2 S CEFOXITIN <=8 S RUN DATE: 07/04/20 [facility] *LIVE* PAGE 2 RUN TIME: 1113 Specimen Inquiry SPEC: [id number] PATIENT: MADELAINE VALLEJO [id number] (Continued) Procedure Result CONTINUED ON NEXT PAGE RUN DATE: 07/04/20 [facility] *LIVE* PAGE 3 RUN TIME: 1113 Specimen Inquiry SPEC: [id number] PATIENT: MADELAINE VALLEJO [id number] (Continued) - Procedure Result ANTIMICROBIAL SUSCEPTIBILITY Preliminary (continued) CEFAZOLIN <=2 S CIPROFLOXACIN >2 R CEFEPIME <=2 S CEFUROXIME <=4 S CEFTAZIDIME/AVIBACTAM <=4 S ERTAPENEM <=0.5 S GENTAMICIN <=2 S LEVOFLOXACIN >4 R MEROPENEM <=1 S PIPERACILLIN/TAZOBACTAM <=8 S TRIMETHOPRIM/SULFAMETHOXAZOLE <=0.5/9.5 S TETRACYCLINE <=4 S TOBRAMYCIN <=2 S NEG CARA 56 CITROBACTER KOSERI ANTIBIOTIC RESULT INTERPRETATION AMPICILLIN/SULBACTAM <=4/2 S AMIKACIN <=16 S AMPICILLIN >16 R AMOXICILLIN/K CLAVULANATE <=8/4 S AZTREONAM <=4 S CEFTRIAXONE <=1 S CEFTAZIDIME <=1 S CEFOTAXIME <=2 S CEFOXITIN <=8 S CEFAZOLIN <=2 S CIPROFLOXACIN <=0.25 S CEFEPIME <=2 S CEFUROXIME <=4 S CEFTAZIDIME/AVIBACTAM <=4 S ERTAPENEM <=0.5 S GENTAMICIN <=2 S LEVOFLOXACIN <=0.5 S MEROPENEM <=1 S PIPERACILLIN/TAZOBACTAM <=8 S TRIMETHOPRIM/SULFAMETHOXAZOLE <=0.5/9.5 S TETRACYCLINE <=4 S TOBRAMYCIN <=2 S Unless otherwise specified, Testing Performed by: [address] [address] For Inquires, the Physician may contact the Microbiology department at [phone] Objective Assessment IMPRESSION: 1. Acute appendicitis with perforation, status post laparoscopic appendectomy 07/01/2020. 2. Fever. 3. Leukocytosis. 4. Lactic acidosis. 5. Gastroesophageal reflux disease. 6. Dyslipidemia. 7. prisoner. Plan Plan of Care f/u BC from [facility] from 07/01, so far are negative. Monitor WBC trend and temp ct noted, drain is out now D/w nursing ok to d/c on po augmentin and cipro ROXANA,AYANNA Crowe MD Jul 11, 2020 08:33
--- NOTE | 2020-07-11 09:17 | PDOC ---
JAMESON PELAYO HOSPICE/HOME HEALTH AIDE 07/11/20 0917: SURGICAL PROGRESS NOTE DATE: 07/11/20 TIME: 09:13 Subjective Feels well no complaints Vital Signs Vital Signs Date Time Temp Pulse Resp B/P (MAP) Pulse Ox O2 Delivery O2 Flow Rate FiO2 07/11/20 08:22 Room Air 07/11/20 07:00 98.2 87 16 119/77 (91) 95 98.2 I&O Intake and Output 07/11/20 07:00 Intake Total 850 ml Output Total 20 ml Balance 830 ml Intake Oral 450 ml IV Total 400 ml Drainage Total 20 ml General: Alert, Oriented X3, Cooperative Abdomen: Soft, Other (ND, drain serosang) Problem List will remove drain oral abx FU 1 week Justicifation of Admission Dx: Justifications for Admission: Justification of Admission Dx: Yes Sepsis: Hemodynamic Instability JESSICA MTZ MD 07/11/20 1040: SURGICAL PROGRESS NOTE Assessment/Plan Agree with Jack's assessment and plan. JAMESON PELAYO HOSPICE/HOME HEALTH AIDE Jul 11, 2020 09:17 JESSICA MTZ MD Jul 11, 2020 10:40
[2020-07-11 11:00] VITALS: BP 112/78
--- NOTE | 2020-07-11 11:27 | PDOC ---
[employer] PROGRESS NOTE Date of Service DOS: DATE: 07/11/20 TIME: 11:11 Chief Complaint Chief Complaint Acute appendicitis with concern for microperforation and now small 5 cm abcess History of GERD History of dyslipidemia Leukocytosis secondary to the above Elevated lactic acid secondary to acute infectious process SEPSIS Justifications for Admission Justifications for Admission Other Justification CT scan showed signs consistent with acute appendicitis with perforation History of Present Illness History of Present Illness 07/11 CT Abd/pelvis from 07/10 showed decrease in R paracolic gutter fluid. Drain removed by surgery earlier today. Per ID patient may discharge today on PO antibiotics. Patient is feeling well and ambulating around the floor. 44drain output is btter will CT abd in AM, if abcess improved will DC drain, gen surg team discussed with me, cont other, ID discused may be able to change to PO abx tomorrow 4.3 going well, no fever, less painful today than 07/07 surg is happy with drain output, he is ambulating OK, eating better, slept better today cont Merrem, will need to continue to IV abx at this time, cont for days at this point Patient is a 44-year-old gentleman with past medical history of GERD, dyslipidemia who was in his usual state of health until the morning prior to his admission when he woke up from his sleep with right lower quadrant abdominal pain. The patient takes Ultram on a regular basis and self medicated. He is currently incarcerated in the [facility]. He was given symptomatic relief of his symptoms that also included nausea and vomiting. The patient has history of GERD his pain improved with the Ultram nevertheless it recurred later in the day and this morning he experienced fever and chills reason why he was transported to the local ER for further evaluation and treatment. The patient had a CT of the abdomen which revealed acute appendicitis and had an elevated white blood cell count he was tachycardic and having an acute febrile illness of 101 Fahrenheit. business risk consultant was contacted and he requested transfer to our institution for definitive treatment. At the time my evaluation the patient is in acute distress due to the abdominal discomfort right lower quadrant no peritoneal signs patient is uncomfortable diaphoretic and tachycardic certainly in acute distress. Nontoxic looking and seems to be perfusing. As per report per ER physician lactic acid was 2.7 reason why we had requested an ICU bed invamsi santos. quality assurance consultant is in route at this point to take the patient to the OR for definitive definitive treatment. Laboratory data from outside facility has been reviewed and also imaging study results as well. He has received cephalosporin and Flagyl in the outside facility and will continue with Zosyn perioperatively. The patient describes the pain as a sharp sensation 10 out of 10 intensity with no radiation to the groin no radiation to the back no urinary symptoms were reported nausea and vomiting of gastric content was reported by the patient no other associated symptoms. The plan of care explained in detail and all of his concerns were addressed to the best of my abilities Past Medical History Cardiovascular: Hyperlipidemia GI: GERD Past Surgical History Past Surgical History: No pertinent history Family History Family History: No Significant Social History Smoke: No ALCOHOL: none Drugs: None 3- pain fair, ID CONSULTED, BLOOD CULT PENDING, CONT IV ZOSYN D/W RN Vitals/I&O Vitals/I&O: Vital Signs Date Time Temp Pulse Resp B/P (MAP) Pulse Ox O2 Delivery O2 Flow Rate FiO2 07/11/20 08:22 Room Air 07/11/20 07:00 98.2 87 16 119/77 (91) 95 98.2 I & O 07/10/20 07/10/20 07/11/20 15:00 23:00 07:00 Intake Total 550 ml 300 ml Output Total 20 ml Balance 550 ml 280 ml Physical Exam Physical Exam: GENERAL: The patient is ambulating around the floor, alert, comfortable HEENT: Pupils equally round, reactive. Normal conjunctivae. Oropharynx pink and moist, no lesions seen. NECK: Supple. LUNGS: Clear to auscultation. No accessory muscle use. HEART: Normal S1, S2 regular. ABDOMEN: Obese, distended, soft, nontender. Hypoactive bowel sounds. Surgical sites bandaged. EXTREMITIES: No gross edema or cyanosis. SKIN: Warm to touch. No signs of generalized rash. NEUROLOGIC: Alert and answering questions appropriately. He moves all extremities. General: Alert, Oriented X3, Cooperative Heart: Regular rate, Normal S1, Normal S2, Other (Tachycardic) Lungs: Clear, Other (No wheezes or crackles) Abdomen: Soft Extremities: No clubbing, No cyanosis, No edema Skin: No significant lesion Review of Systems Review of Systems: Denies abdominal pain or fevers. Assessment and Plan Assessmemt and Plan Postop day 7 lap appendectomy Resolving abscess GERD Hyperlipidemia Resolving sepsis Plan Transition IV abx to PO Levaquin and Flagyl Wound intermediate meds Discharge to [facility] today Comment Review of Relevant I have reviewed the following items tawana (where applicable) has been applied. Justifications for Admission Other Justification BROOKS MONROE III DO Jul 11, 2020 11:27
--- NOTE | 2020-07-11 12:30 | DS ---
DATE OF DISCHARGE: 07/11/2020 ADMISSION DIAGNOSIS: Appendicitis. DISCHARGE DIAGNOSIS: Postop day #9 laparoscopic appendectomy. CONSULTS: General Surgery. PROCEDURES: Laparoscopic appendectomy. HOSPITAL COURSE: The patient is a pleasant middle-aged male who resides at the [facility] at [place]. Basically, he presented with appendicitis. He was admitted. He was taken to the OR by Dr. Castorena. There was some abscess formation and so he had to keep a ARIELLA drain, do IV antibiotics for the next week or so. Today, I saw and examined him. He is up walking, doing well and wants to go home. The ARIELLA drain is out. I discussed the case with Infectious Disease, the nurse and case management who changed him to p.o. antibiotics and [facility] DISPOSITION: [facility]. ACTIVITY: As tolerated. DIET: Low sodium. MEDICATIONS: Please see the MRAD. Levaquin 500 p.o. b.i.d. and Flagyl 500 p.o. t.i.d. Also, p.r.n. Tylenol, Zyrtec 1 tab a day, Pepcid 20 b.i.d., gabapentin 300 t.i.d., melatonin at bedtime, omega-3 fatty acids, testosterone 20 mg q. 2 Weeks and Ultram 100 t.i.d. TOTAL TIME: Thirty four minutes. BROOKS MONROE DO DR: MOE/neda JOB#: [id number] / [id number]
--- NOTE | 2020-07-11 13:24 | NUR ---
Patient discharge back to [facility] where he came from and accompanied by 2 guards during the discharge. Patient is stable, IV removed, and discharge instruction given to patient and patient verbalized understanding of follow up and discharge instruction. [facility] clinic was contacted about patient discharge today. Patient prescription was put in the discharge packet and then sealed and given to the guard.
== END 2020-07-11 14:29 | DRG 853 ==
LOC: EEVIPCON 14:38 → 1 WEST ICU 14:38 → 4 NORTH 17:21
PROVIDERS: ADMIT Internal Medicine; ATTEND Internal Medicine
PROC: 0DTJ4ZZ Resection of Appendix, Percutaneous Endoscopic Approach (ICD-10-PCS; principal; 2020-07-01 15:22)
PROC: 0W9G30Z Drainage of Peritoneal Cavity with Drainage Device, Percutaneous Approach (ICD-10-PCS; 2020-07-05)
DX: A41.9 Sepsis, unspecified organism (principal); K35.33 Acute appendicitis with perforation, localized peritonitis, and gangrene, with abscess; E87.2 Acidosis; E78.5 Hyperlipidemia, unspecified; K21.9 Gastro-esophageal reflux disease without esophagitis; E66.9 Obesity, unspecified; Z68.31 Body mass index [BMI] 31.0-31.9, adult
CPT/HCPCS: 36415; 49406; 71045; 74177; 80048; 80053; 83605; 84145; 85007; 85025; 85610; 87040; 87071; 87075; 87076; 87077; 87186; 88304; 99152; A4215; A4314; A4364; A4930; A6219; C1894; J0330; J1100; J1170; J1650; J1885; J2020; J2185; J2250; J2405; J2543; J2704; J2710; J3010; J3490; J7030; J7120; Q9966; Q9967; 97116-GP; G0378